=== PATIENT | female | born 1965 | race Caucasian/White ===

== ENCOUNTER 2020-05-14 09:42 | Outpatient (REF) | payer OTHER, SELFPAY ==
--- NOTE | 2020-05-14 | MM_ITS ---
EXAMINATION: MM DIAGNOSTIC DIGITAL BREAST TOMOSYNTHESIS, BILATERAL CLINICAL INFORMATION: Calcifications The lifetime risk of breast cancer based on the Tyrer-Cuzick Model is 9.5%. COMPARISON: Mammography: July 29, 2018 and studies dating back to December 20, 2011 TECHNIQUE: Digital breast tomosynthesis is performed in both the craniocaudal and mediolateral oblique views along with computer-aided detection (CAD). Synthesized 2D images are generated from the tomosynthesis. Addition right breast magnification views performed in craniocaudal and 90 degree mediolateral views as well as spot compression right craniocaudal view. FINDINGS: There are scattered areas of fibroglandular density (ACR BI-RADS breast composition Category b). No new abnormal dominant masses or new more suspicious grouping of microcalcifications identified. Results are provided to the patient at time of visit by the technologist. MM/MM tomosynthesis diagnostic BI IMPRESSION: There are no significant changes from prior study. ASSESSMENT: BI-RADS 2: Benign RECOMMENDATION: Routine annual mammography screening due in 12 months. This patient's information was entered into a reminder system with a target due date for their next mammogram.
== END 2020-05-14 09:43 | disposition home or self-care (01) ==
LOC: HO.MAMMO 09:42
PROVIDERS: Visit Provider Internal Medicine
DX: R92.1 Mammographic calcification found on diagnostic imaging of breast (principal)
CPT/HCPCS: 77062; 77066

== ENCOUNTER 2021-09-11 17:06 | Emergency (ER) | payer OTHER, SELFPAY ==
--- NOTE | 2021-09-11 | ECG_ITS ---
Test Reason : CHEST PAIN Blood Pressure : / mmHG Vent. Rate : 069 BPM Atrial Rate : 069 BPM P-R Int : 150 ms QRS Dur : 086 ms QT Int : 406 ms P-R-T Axes : 002 -21 -05 degrees QTc Int : 435 ms Normal sinus rhythm Moderate voltage criteria for LVH, may be normal variant ( R in aVL , [place] product ) Septal infarct , age undetermined Abnormal ECG When compared with ECG of 13-JAN-2011 17:10, No significant change was found Referred By: Generic ED Physician Electronically Signed By:ARUN HIGUERA
--- NOTE | ~2021-09-11 | XR_ITS ---
EXAMINATION: XR CHEST CLINICAL INFORMATION: Chest pain/palpitations COMPARISON: None TECHNIQUE: Frontal view of the chest was obtained. FINDINGS: No significant abnormality is noted involving the heart, lungs, mediastinum, bony thorax or soft tissues. XR/XR chest 1V IMPRESSION: Unremarkable examination.
[2021-09-11 17:10] VITALS: TEMP 36.6; BMI 33.3
[2021-09-11 17:14] VITALS: BP 268/125; PULSE 73; RESP 18; O2SAT 98
[2021-09-11 17:37] LABS: MANUAL DIFF FLAG NO
[2021-09-11 17:38] LABS: Basophils Absolute Auto 0.1 X10*3/uL (0.0-0.2); Basophils Percent Auto 0.6 % (0-2); Eosinophils Absolute Auto 0.2 X10*3/uL (0.0-0.4); Eosinophils Percent Auto 1.9 % (0-4); Hematocrit 45.2 % (37.0-47.0); Hemoglobin 15.6 g/dl (12.0-16.0); Imm Gran Abs Auto 0.01 X10*3/uL (0.00-0.03); Imm Gran Pct Auto 0.1 % (0.0-0.4); Lymphocytes Absolute Auto 2.1 X10*3/uL (1.2-4.9); Lymphocytes Percent Auto 27.4 % (20-40); Mean Corpuscular HGB Conc 34.5 g/dl (31.0-35.0); Mean Corpuscular Volume 86.9 fL (80.0-98.0); Mean Platelet Volume 9.8 fL (9.4-12.3); Monocytes Absolute Auto 0.6 X10*3/uL (0.1-1.2); Neutrophils Absolute Auto 4.9 x10*3/uL (2.0-8.3); Platelet Count 292 X10*3/uL (160-400); Red Cell Distribution Width 12.4 % (11.0-16.0); White Blood Count 7.8 X10*3/uL (4.8-10.8)
--- NOTE | 2021-09-11 17:47 | ECG_ITS ---
Test Reason : PALPITATIONS Blood Pressure : / mmHG Vent. Rate : 069 BPM Atrial Rate : 069 BPM P-R Int : 164 ms QRS Dur : 082 ms QT Int : 400 ms P-R-T Axes : 007 -25 -04 degrees QTc Int : 428 ms Normal sinus rhythm Moderate voltage criteria for LVH, may be normal variant ( R in aVL , [place] product ) Septal infarct (cited on or before 11-SEP-2021) Abnormal ECG When compared with ECG of 11-SEP-2021 17:17, No significant change was found Referred By: Arnold Ruiz Electronically Signed By:ARUN HIGUERA
[2021-09-11 17:51] LABS: Anion Gap 12 (12-20); Blood Urea Nitrogen 14 mg/dL (9-16); Carbon Dioxide 31 mmol/L (22-29); Chloride 103 mmol/L (96-108); Creatinine Clr Calc Pharmacy 86.3; Estimated Glomerular Filt Rate > 60; Glucose Random 197 mg/dL (60-115); Potassium 4.5 mmol/L (3.3-5.1); Sodium 141 mmol/L (135-145)
[2021-09-11 17:56] LABS: Troponin-I High Sensitivity 3.5 ng/L (<3.5-17.0)
--- NOTE | 2021-09-11 18:09 | ED.ARRPALP ---
HPI - Arrhythmia/Palpitations General Chief Complaint: Arrhythmia/Palpitations Stated Complaint: heart palpitations Time Seen by Provider: 09/11/21 17:46 Source: patient Mode of arrival: ambulatory Limitations: no limitations History of Present Illness HPI narrative: 56-year-old female who presents emergency department for evaluation palpitations. She states she woke up this morning and did not feel well. She states that she was tired and she attributed this to working to hard during the week. The patient went to work. 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 She states that around 16:30 hours, she developed a sudden onset of palpitations. She states that her heart was beating fast and it felt like a jackhammer was pounding on her chest. She had mild shortness of breath. She felt very warm. She sat down and after approximately 25 minutes her symptoms resolved. She denied any lightheadedness or dizziness. She denied pain in her neck, jaw, arms or back. She states this is the 1st episode of palpitations. She states that over the past week she has been feeling more tired than usual she has had some mild dyspnea on exertion but she states that this is not new. She denied chest pain, fever, chills, rhinorrhea, sore throat, cough, nausea, vomiting, abdominal pain, frequency, black stools, bloody stools, weight loss or weight gain. The patient states that occasionally gets swelling in her lower extremities but not any more than usual. She does not take any hormonal replacement therapy. She has not gone on any long trips. She has had no recent surgeries. Related Data Previous Rx's Medication Instructions Recorded hydrochlorothiazide 25 mg tablet 25 mg PO DAILY 30 Days #30 tab 09/11/21 lisinopril 20 mg tablet 20 mg PO DAILY 30 Days #30 tab 09/11/21 Allergies Allergy/AdvReac Type Severity Reaction Status Date / Time No Known Allergies Allergy Mild NONE Verified 09/11/21 17:10 Review of Systems Review of Systems: Yes all other systems are reviewed and are negative [facility] Past Medical History [facility] Narrative: Past medical history: Borderline hypertension, not treated. Past surgical history: Hysterectomy secondary to dysfunctional uterine bleeding, bilateral torn meniscus repair with the last 1 being 10 years prior. Social history: She works in a restaurant. She states she smoked as a teenager for brief period time but otherwise does not smoke cigarettes. She occasionally drinks alcohol. She denies drug use. Social History Social History Advance Directives: No Advance Directives Information Provided: No Patient : No Physical Exam Vital Signs: Vital Signs: Last Vital Signs Temp 97.7 F 09/11/21 19:02 Pulse 66 09/11/21 19:02 Resp 18 09/11/21 19:02 BP 229/116 H 09/11/21 19:02 Pulse Ox 96 09/11/21 19:02 BMI result Body Mass Index 33.3 Const: General: cooperative and no acute distress Orientation/consciousness: oriented to person and oriented to place Limitations: no limitations HENMT: Head: Yes normal to inspection, Yes normocephalic and Yes atraumatic Ears: external ears normal General nose exam: Normal external nose present Face and sinus: Yes normal facial exam Mouth: Normal oral and palatal mucosa present Throat: Yes posterior oropharynx normal Eyes: General: appearance normal, both eyes and all related structures Pupils: Equal, round and reactive pupils present Neck: Neck: Yes normal visual inspection, Yes no lymphadenopathy, Yes trachea midline and Yes supple Chest: Chest palpation & inspection: normal inspection of the chest and tenderness (Mild right chest wall tenderness) Resp: Effort & Inspection: normal respiratory effort and able to speak in complete sentences Auscultation: clear to auscultation bilaterally Cardio: Rate: regular rate Rhythm: regular rhythm Heart sounds: S1 normal heart sound present, S2 normal heart sound present and no murmurs GI: Inspection: Yes normal to inspection Palpation (GI): Soft to palpation, nontender and no guarding Auscultation: normal bowel sounds : General: Yes no CVA tenderness Back/Spine/Pelvis: Back: no CVA tenderness Skin: General skin exam: no rashes or lesions noted Neuro: General: oriented to person and oriented to place Cranial nerves: Yes CN's II-XII intact bilaterally and Yes Equal, round and reactive pupils present Cognition (Neuro): normal cognition Motor exam (neuro): 5/5 motor strength present throughout Extrem: General: Yes normal to inspection, Yes no pedal edema and Yes no calf tenderness (Negative Homans sign bilaterally) Psych: Appearance: grossly normal Speech and movement: Normal speech and movement present Affect: normal affect Attitude: cooperative Thought process: Normal thought process present Thought content: Normal thought content present Course Course Course Narrative: 56-year-old female who presents emergency department for evaluation of palpitations which came on suddenly while she was at work at around 16:30 hours lasted 25 minutes. She describes the palpitations as a fast heart rate and a jackhammer popping in her chest. She had no other significant associated symptoms. She did no increased fatigue this morning in over the last week with some mild dyspnea on exertion with no other significant symptoms. Initial vital signs revealed an elevated blood pressure of 268/125 otherwise were unremarkable. Physical examination did reveal some [id number] right-sided chest wall tenderness otherwise was unremarkable. I ordered a laboratory evaluation to include CBC, BMP, liver panel, troponin, PT/INR, PTT, D-dimer, TSH with reflex T4. COVID-19 test was also ordered. Patient states she did have a history of hypertension and was on lisinopril and hydrochlorothiazide eventually stop the since her blood pressure improved. 18 15: Patient's 1st EKG was done and 17:17 with a repeat EKG done at 17:50. First EKG revealed a sinus rhythm with a rate of 69, normal intervals, Q-wave in lead 3 with inverted T-wave and this lead, she had Q-waves V1 through V3 with no ST segment elevation or depression this is consistent with an anterior septal wall NE, repeat EKG reveals similar findings. There are no old EKGs for comparison. 2139: Patient's laboratory evaluation did reveal an elevated glucose of 197. The patient's 1st high sensitivity troponin I was 3.5 and her repeat troponin was similar 3.5 suggesting that she did not have myocardial injury is the cause her palpitations. TSH was normal and COVID-19 was negative. Chest x-ray was unremarkable. The patient's presentation of palpitations I believe his benign however she does have essential hypertension and she was given lisinopril 20 mg orally. I did prescribe her lisinopril 20 mg once a day and hydrochlorothiazide 25 mg once a day, these with the medications that she was taking in the past. The patient does have an abnormal EKG and she will be referred to our on-call shader and toner. I told her that she should have an echocardiogram as an outpatient, Holter monitor and possibly event monitor. Patient was discharged home with printed and verbal instructions. MDM - Arrhythmia/Palpitations Lab Data Result diagrams: 09/11/21 17:32 09/11/21 17:32 Labs: Lab Results 09/11/21 09/11/21 09/11/21 Range/Units 17:32 17:32 17:32 WBC 7.8 (4.8-10.8) X10*3/uL RBC 5.20 (4.20-5.50) X10*6/uL Hgb 15.6 (12.0-16.0) g/dl Hct 45.2 (37.0-47.0) % MCV 86.9 (80.0-98.0) fL MCH 30.0 (27.0-33.0) pg MCHC 34.5 (31.0-35.0) g/dl RDW 12.4 (11.0-16.0) % Plt Count 292 (160-400) X10*3/uL MPV 9.8 (9.4-12.3) fL Immature Gran % (Auto) 0.1 (0.0-0.4) % Neut % (Auto) 63.0 (45-73) % Lymph % (Auto) 27.4 (20-40) % [place] % (Auto) 7.0 (2-11) % Eos % (Auto) 1.9 (0-4) % Baso % (Auto) 0.6 (0-2) % Lymph # (Auto) 2.1 (1.2-4.9) X10*3/uL [place] # (Auto) 0.6 (0.1-1.2) X10*3/uL Eos # (Auto) 0.2 (0.0-0.4) X10*3/uL Baso # (Auto) 0.1 (0.0-0.2) X10*3/uL Abs Immat Gran (auto) 0.01 (0.00-0.03) X10*3/uL Absolute Neuts (auto) 4.9 (2.0-8.3) x10*3/uL Absolute Nucleated RBC 0.000 (0.0-0.012) X10*3/uL Nucleated RBC % (auto) 0.0 (0.0-0.2) /100WBC PT INR APTT D-Dimer High Sensitivty NG/ML Sodium 141 (135-145) mmol/L Potassium 4.5 (3.3-5.1) mmol/L Chloride 103 (96-108) mmol/L Carbon Dioxide 31 H (22-29) mmol/L Anion Gap 12 (12-20) BUN 14 (9-16) mg/dL Creatinine 0.81 (0.5-1.4) mg/dL Estim Creat Clear Calc 86.3 Estimated GFR > 60 Random Glucose 197 H (60-115) mg/dL Calcium 10.0 (8.4-10.2) mg/dL Total Bilirubin 0.5 (0.0-1.0) mg/dL Direct Bilirubin 0.2 (0.0-0.5) mg/dL AST 20 (5-31) U/L ALT 22 (0-31) U/L Alkaline Phosphatase 92 (39-117) U/L Troponin I High Sens 3.5 (<3.5-17.0) ng/L Total Protein 7.6 (6.5-8.0) g/dL Albumin 4.5 (3.5-5.0) g/dL TSH 0.81 (0.32-4.0) uIU/mL COVID-19 ([facility]) (Negative) COVID-19 Clin Com 09/11/21 09/11/21 09/11/21 Range/Units 18:16 18:16 18:16 WBC (4.8-10.8) X10*3/uL RBC (4.20-5.50) X10*6/uL Hgb (12.0-16.0) g/dl Hct (37.0-47.0) % MCV (80.0-98.0) fL MCH (27.0-33.0) pg MCHC (31.0-35.0) g/dl RDW (11.0-16.0) % Plt Count (160-400) X10*3/uL MPV (9.4-12.3) fL Immature Gran % (Auto) (0.0-0.4) % Neut % (Auto) (45-73) % Lymph % (Auto) (20-40) % [place] % (Auto) (2-11) % Eos % (Auto) (0-4) % Baso % (Auto) (0-2) % Lymph # (Auto) (1.2-4.9) X10*3/uL [place] # (Auto) (0.1-1.2) X10*3/uL Eos # (Auto) (0.0-0.4) X10*3/uL Baso # (Auto) (0.0-0.2) X10*3/uL Abs Immat Gran (auto) (0.00-0.03) X10*3/uL Absolute Neuts (auto) (2.0-8.3) x10*3/uL Absolute Nucleated RBC (0.0-0.012) X10*3/uL Nucleated RBC % (auto) (0.0-0.2) /100WBC PT Cancelled 11.9 INR Cancelled 1.0 APTT Cancelled 38.1 H D-Dimer High Sensitivty < 150 NG/ML Sodium (135-145) mmol/L Potassium (3.3-5.1) mmol/L Chloride (96-108) mmol/L Carbon Dioxide (22-29) mmol/L Anion Gap (12-20) BUN (9-16) mg/dL Creatinine (0.5-1.4) mg/dL Estim Creat Clear Calc Estimated GFR Random Glucose (60-115) mg/dL Calcium (8.4-10.2) mg/dL Total Bilirubin (0.0-1.0) mg/dL Direct Bilirubin (0.0-0.5) mg/dL AST (5-31) U/L ALT (0-31) U/L Alkaline Phosphatase (39-117) U/L Troponin I High Sens (<3.5-17.0) ng/L Total Protein (6.5-8.0) g/dL Albumin (3.5-5.0) g/dL TSH (0.32-4.0) uIU/mL COVID-19 ([facility]) Negative (Negative) COVID-19 Clin Com See Note 09/11/21 Range/Units 20:48 WBC (4.8-10.8) X10*3/uL RBC (4.20-5.50) X10*6/uL Hgb (12.0-16.0) g/dl Hct (37.0-47.0) % MCV (80.0-98.0) fL MCH (27.0-33.0) pg MCHC (31.0-35.0) g/dl RDW (11.0-16.0) % Plt Count (160-400) X10*3/uL MPV (9.4-12.3) fL Immature Gran % (Auto) (0.0-0.4) % Neut % (Auto) (45-73) % Lymph % (Auto) (20-40) % [place] % (Auto) (2-11) % Eos % (Auto) (0-4) % Baso % (Auto) (0-2) % Lymph # (Auto) (1.2-4.9) X10*3/uL [place] # (Auto) (0.1-1.2) X10*3/uL Eos # (Auto) (0.0-0.4) X10*3/uL Baso # (Auto) (0.0-0.2) X10*3/uL Abs Immat Gran (auto) (0.00-0.03) X10*3/uL Absolute Neuts (auto) (2.0-8.3) x10*3/uL Absolute Nucleated RBC (0.0-0.012) X10*3/uL Nucleated RBC % (auto) (0.0-0.2) /100WBC PT INR APTT D-Dimer High Sensitivty NG/ML Sodium (135-145) mmol/L Potassium (3.3-5.1) mmol/L Chloride (96-108) mmol/L Carbon Dioxide (22-29) mmol/L Anion Gap (12-20) BUN (9-16) mg/dL Creatinine (0.5-1.4) mg/dL Estim Creat Clear Calc Estimated GFR Random Glucose (60-115) mg/dL Calcium (8.4-10.2) mg/dL Total Bilirubin (0.0-1.0) mg/dL Direct Bilirubin (0.0-0.5) mg/dL AST (5-31) U/L ALT (0-31) U/L Alkaline Phosphatase (39-117) U/L Troponin I High Sens 3.5 (<3.5-17.0) ng/L Total Protein (6.5-8.0) g/dL Albumin (3.5-5.0) g/dL TSH (0.32-4.0) uIU/mL COVID-19 ([facility]) (Negative) COVID-19 Clin Com ECG Data Attestation: I personally reviewed and interpreted this ECG as follows: Interpretation: EKG 1) 1717: Normal sinus rhythm rate of 69, normal IA interval, QRS duration and QTC interval, Q-wave in lead 3 with inverted T-wave in lead 3 and biphasic P wave in lead 3, Q-waves in V1, V2 and V3, no ST segment elevation, no ST segment depression, no PACs or PVCs. No old EKG for comparison, this is consistent with an old anterior septal wall NE EKG 2) 17 50: Normal sinus rhythm with a rate of 69, normal IA interval, QRS duration QTC interval, biphasic P wave in 3 with an inverted T-wave in 3, Q-wave in 3 and Q-waves in V1, V2 and V3, no ST segment elevation, no ST segment depression, no PACs or PVCs. Compared to EKG 1, there is no significant change Discharge Plan Discharge Clinical Impression: Palpitations, Essential hypertension Patient Disposition: Home, Self-Care Instructions: Heart Palpitations (DC) Additional Instructions: Your chest x-ray was unremarkable. Your laboratory evaluation revealed a detectable high sensitivity troponin I of 3.5, the repeat 3 hour troponin was also 3.5 suggesting that you did not have heart damage (myocardial infarction/heart attack) as the cause of your palpitations. Your chest x-ray was normal. Your COVID-19 test was negative. Your EKG is abnormal however I do not think that you had a heart attack today. Given your abnormal EKG, I do believe you should follow-up with the that your primary care doctor or on-call shader and toner to get an echocardiogram as an outpatient. Also to workup her palpitations your primary care doctor or the shader and toner should get a Holter monitor and possibly an event monitor as an outpatient as well. Your blood pressure was very high but this is not the cause of your palpitations or your abnormal EKG. Take lisinopril 20 mg once a day Take take hydrochlorothiazide 25 mg once a day. It will take at least 6 weeks to get your blood pressure under control with these medications and sometimes longer. It is important that you check your blood pressure at least 3 times a week in the morning, right these blood pressures down and follow-up with your doctor to determine further management of your blood pressure. Follow-up with your doctor in 2 days. Please return to the emergency department if your symptoms get worse or if you develop any symptoms that are concerning to you. Prescriptions: New lisinopril 20 mg tablet 20 mg PO DAILY 30 Days Qty: 30 0RF hydrochlorothiazide 25 mg tablet 25 mg PO DAILY 30 Days Qty: 30 0RF Referrals: Leander Sierra MD [Physician] - 2 weeks
[2021-09-11 18:17] LABS: Alanine Aminotransferase 22 U/L (0-31); Albumin Level 4.5 g/dL (3.5-5.0); Alkaline Phosphatase 92 U/L (39-117); Aspartate Amino Transferase 20 U/L (5-31); Bilirubin Direct 0.2 mg/dL (0.0-0.5); Bilirubin Total 0.5 mg/dL (0.0-1.0); Total Protein 7.6 g/dL (6.5-8.0)
[2021-09-11 18:31] LABS: Prothrombin Time 11.9 SEC (9.9-13.0)
[2021-09-11 18:33] LABS: Partial Thromboplastin Time 38.1 SEC (24.1-38.0)
[2021-09-11 18:37] LABS: TSH reflex Free T4 0.81 uIU/mL (0.32-4.0)
[2021-09-11 18:49] LABS: COVID-19 Test Negative (Negative)
[2021-09-11 19:02] VITALS: BP 229/116; PULSE 66; RESP 18; TEMP 36.5; O2SAT 96
[2021-09-11 19:03] LABS: D Dimer High Sensitivity < 150 NG/ML
--- NOTE | 2021-09-11 19:19 | PC.NURSE ---
Assumed care of pt at 1900. Pt resting in bed, in NAD, attached to child monitor. Dispo pending lab results
[2021-09-11 21:11] LABS: Troponin-I High Sensitivity 3.5 ng/L (<3.5-17.0)
[2021-09-11] MEDS: lisinopriL 20 MG TABLET PO (21:14)
[2021-09-11 21:52] VITALS: BP 231/103
== END 2021-09-11 22:04 | disposition home or self-care (01) ==
PROVIDERS: Emergency Provider Emergency Medicine Emergency Medical Services
DX: R00.2 Palpitations (principal); I10 Essential (primary) hypertension; Z20.822 Contact with and (suspected) exposure to COVID-19
CPT/HCPCS: 36415; 71045; 80048; 80076; 84443; 84484; 85025; 85379; 85610; 85730; 87635; 93005; 99284

== ENCOUNTER → 2021-09-20 08:10 | Outpatient (REF) | payer OTHER, SELFPAY ==
--- NOTE | 2021-09-20 08:16 | CA_ITS ---
Transthoracic Echocardiogram Patient (Last, First, Middle): Gris Gonsalez J Gender: Female Date of : 1965 Age: 56 Procedure Date: 09/20/2021 Procedure Type: Transthoracic Echocardiogram Location: OP Height: 162.56 cm Weight: 92.08 kg BSA: 1.97 m2 Heart Rate: bpm BP: 150 / 82 mmHg Book Retailer: DSNew Referring MD: Richard Ferris MD Symptoms: I10 HTN I50.1 LVH Conclusions: - Normal left ventricular size and systolic function. There is moderately increased left ventricular wall thickness. The visually estimated ejection fraction is between 60-65%. - E/E prime ratio is between 8 and 15 consistent with indeterminate filling pressures. - There is mild dilatation of the ascending aorta measuring 3.90 cm. Findings Left Ventricle Normal left ventricular size and systolic function. There is moderately increased left ventricular wall thickness. The visually estimated ejection fraction is between 60-65%. Abnormal diastolic function is noted. Spectral Doppler is indicative of an impaired relaxation filling pattern. E/E prime ratio is between 8 and 15 consistent with indeterminate filling pressures. Right Ventricle Normal right ventricular cavity size and systolic function. Atria Both atria are normal in size. Aortic Valve Normal aortic valve structure and function. There is no aortic valve stenosis. There is no aortic valve regurgitation. Mitral Valve The mitral valve appears normal. There is no mitral valve regurgitation. There is no mitral valve stenosis. Pulmonic Valve The pulmonic valve is likely normal. Tricuspid Valve Normal tricuspid valve structure. There is mild tricuspid valve regurgitation. Normal right atrial pressure. There is no evidence of pulmonary hypertension. Great Vessels There is mild dilatation of the ascending aorta measuring 3.90 cm. The visualized portions of the pulmonary artery and branches are normal. Venous The inferior vena cava is normal in size and collapses greater than 50% with inspiration. Pericardium/Pleural There is no evidence of pericardial effusion. Measurements M-Mode Liner Measurements Normals - Women/Men IVSd: 1.41 0.6-0.9/0.6-1.0 cm LVIDd: 5.05 3.9-5.3/4.2-5.9 cm LVIDd Index: 2.56 1.9-3.2 cm/m2 LVIDs: 2.82 2.0-3.8 cm LVPWd: 1.26 0.6-0.9/0.6-1.0 cm LV Mass: 344.56 67-162/88-224g LV Mass Index: 174.91 43-95/49-115 g/m2 M-Mode Volumes LV EDV: 121.00 LV ESV: 30.10 2D Linear Measurements IVSd: 1.34 0.6-0.9/0.6-1.0 cm LVIDd: 4.47 3.9-5.3/4.2-5.9 cm LVIDd Index: 2.27 2.4-3.2/2.2-3.1 cm/m2 LVIDs: 3.23 2.0-3.6 cm LVPWd: 1.48 0.7-1.1 cm LA Diam: 2.50 2.7-3.8/3.0-4.0 cm LAIDs Index: 1.27 1.5-2.3 cm/m2 LV Mass: 310.03 67-162/88-224 g LV Mass Index: 157.38 43-95/49-115 g/m2 LVOT Diam: 2.20 3.0+(-)1.3 cm 2D Systolic Function EF 4C: 62.40 >55% EF 2C: 57.20 >55% EF BiP: 60.30 >55% M-Mode Systolic Function FS: 44.20 27-47/25-43% LVEF: 75.10 >55% Mitral Valve MV Pk E: 0.54 MV PK A: 0.84 MV Decel Time: 220.00 E/A: 0.70 E'Lateral: 6.09 E'Medial: 4.03 E/E' Med: 13.50 E/E' Lat: 8.90 PHT: 64.00 MVA PHT: 3.44 Decel [place]: 2.47 Aortic Valve AoV Pk [place]: 1.43 AoV Pk Grad: 8.00 LVOT LVOT Pk [place]: 0.88 LVOT Mn [place]: 0.58 LVOT VTI: 0.22 LVOT Pk Grad: 3.00 LVOT Mn Grad: 2.00 LVOT Diam: 2.20 LVOT Area: 3.80 Diastolic Function MV Pk E: 0.54 MV Pk A: 0.84 E/A: 0.70 E'Medial: 4.03 E/E' Med: 13.50 E' Laterial: 6.09 E/E' Lat: 8.90 Right Ventricle TAPSE (mm): 2.26 TVS' [place]: 13.60 Tricuspid Valve TR Pk [place]: 2.40 TR Pk Grad: 23.00 RA Press: 3.00 RVSP: 26.00 Great Vessels Aorta Sinus of Valsalva: 3.45 2.0-3.5 cm Ao Asc: 3.90 2.1-3.4 cm Updated in Other Vendor System with Status of Final Kings Gonzalez MD electronically signed on 09/21/2021 3:47:09 PM with status of Final
== END ==
LOC: HO.CARD 08:10
PROVIDERS: Visit Provider Internal Medicine
DX: I11.0 Hypertensive heart disease with heart failure (principal); I50.1 Left ventricular failure, unspecified
CPT/HCPCS: 93306

== ENCOUNTER 2021-09-23 07:56 | Outpatient (REF) | payer OTHER, SELFPAY ==
[2021-09-23 08:39] LABS: Estimated Average Glucose 157 mg/dL; Hemoglobin A1c % 7.1 %
[2021-09-23 08:59] LABS: Anion Gap 16 (12-20); Blood Urea Nitrogen 23 mg/dL (9-16); Calcium 9.9 mg/dL (8.4-10.2); Carbon Dioxide 27 mmol/L (22-29); Chloride 103 mmol/L (96-108); Cholesterol 207 mg/dL; Estimated Glomerular Filt Rate > 60; Glucose Random 110 mg/dL (60-115); HDL Cholesterol 53 mg/dL; LDL Cholesterol Calculated 139 mg/dl; Potassium 4.6 mmol/L (3.3-5.1); Sodium 141 mmol/L (135-145); Triglycerides 78 mg/dL
[2021-09-23 09:23] LABS: Free T4 (Free Thyroxine) 1.08 ng/dL (0.71-1.85)
[2021-09-23 09:23] LABS: Appearance Urine HAZY; Color Urine YELLOW; Glucose Urine UA NEG (NEG); Leukocyte Esterase Urine NEG (NEG); Nitrite Urine NEG (NEG); PH 5.5 (5.0-8.0); Specific Gravity - Urine 1.025 (1.005-1.025); Urine Blood NEG (NEG); Urine Ketones 15 MG/DL (NEG); Urine Protein NEG (NEG-TRACE)
[2021-09-23 09:31] LABS: Creatinine Urine 166.72 mg/dL; Microalbum/Creatinine Ratio Ur 13.1 ug/mg cr
== END 2021-09-23 07:57 | disposition home or self-care (01) ==
LOC: HO.LAB 07:56
PROVIDERS: PCP Internal Medicine; Visit Provider Internal Medicine
DX: I10 Essential (primary) hypertension (principal); E11.9 Type 2 diabetes mellitus without complications; R00.2 Palpitations
CPT/HCPCS: 36415; 80048; 80061; 81003; 82043; 83036; 84439

== ENCOUNTER 2021-10-01 11:33 | Outpatient (REF) | payer OTHER, SELFPAY ==
--- NOTE | ~2021-10-01 | XR_ITS ---
EXAMINATION: XR CERVICAL SPINE CLINICAL INFORMATION: Left paresthesia. COMPARISON: None TECHNIQUE: The cervical spine is imaged in 7 views: AP, lateral, bilateral oblique, odontoid x2, and Fuchs. FINDINGS: There is straightening of the cervical lordosis. The vertebral bodies are normal in height. The odontoid appears intact. There is no cervical vertebral compression, spondylolisthesis, destructive process, or prevertebral soft tissue swelling. No erosive changes. There are degenerative disc changes with disc narrowing C5-C6 and C6-C7. There is mild facet degeneration C3-C4 and C4-C5. The oblique view show left foraminal spurring at C6-C7 and borderline bilateral foraminal spurring at C4-C5 and C5-C6. XR/XR cervical spine min 6V IMPRESSION: 1. Degenerative disc changes C5-C6 and C6-C7. 2. Left foraminal spurring C6-C7. 3. Borderline bilateral foraminal spurring C4-C5 and C5-C6.
[2021-10-01 13:22] LABS: Anion Gap 16 (12-20); Blood Urea Nitrogen 16 mg/dL (9-16); C Reactive Protein 0.45 mg/dL (< or = 0.50); Calcium 11.1 mg/dL (8.4-10.2); Carbon Dioxide 29 mmol/L (22-29); Chloride 101 mmol/L (96-108); Estimated Glomerular Filt Rate > 60; Glucose Random 131 mg/dL (60-115); Sodium 141 mmol/L (135-145)
[2021-10-01 13:29] LABS: Vitamin B12 415 pg/mL (200-900)
== END 2021-10-01 11:34 | disposition home or self-care (01) ==
LOC: HO.XRAY 11:33
PROVIDERS: PCP Internal Medicine; Visit Provider Internal Medicine
DX: I10 Essential (primary) hypertension (principal); E11.9 Type 2 diabetes mellitus without complications; M54.2 Cervicalgia
CPT/HCPCS: 36415; 72052; 80048; 82550; 82607; 83735; 86140

== ENCOUNTER 2021-11-12 07:23 | Outpatient (REF) | payer OTHER, SELFPAY ==
--- NOTE | ~2021-11-12 | MM_ITS ---
EXAMINATION: BONE DENSITOMETRY CLINICAL INDICATION: Postmenopausal. COMPARISON: None (current study represents initial baseline exam). TECHNIQUE: Using a RealD DXA System (software version: 13.1) manufactured by [employer], dual-energy x-ray absorptiometry was performed of the lumbar spine and left hip. The images are of good technical quality. Summary results are attached. FINDINGS: AP SPINE L1-L4: BMD 1.344 g/cm2, Z-score 1.4, T-score 1.4, normal. LEFT FEMUR, NECK: BMD 1.044 g/cm2, Z-score 0.5, T-score 0.0, normal. LEFT FEMUR, TOTAL: BMD 1.257 g/cm2, Z-score 2.1, T-score 2.0, normal. IDENTIFIED RISK FACTORS: Low calcium intake, thiazide. Early menopause, secondary osteoporosis, hysterectomy. HISTORY OF FRACTURE: None listed. MEDICATIONS: None listed. MM/XR DEXA axial skeleton IMPRESSION: 1. DIAGNOSIS: Normal bone density based on the lowest T-score value of 0.0 in the femoral neck applying World Health Organization criteria. 2. 10-YEAR FRACTURE RISK PREDICTION, FRAX: According to the guidelines, FRAX calculation should only be performed on patients in the osteopenia bone density category. Therefore, FRAX was not performed on this patient. 3. Treatment Recommendations: NOF guidelines recommend consideration for treatment in postmenopausal women and men age 50 and older presenting with the following: -A hip or vertebral (clinical or morphometric) fracture. -T-score less than or equal to -2.5 at the femoral neck or spine after appropriate evaluation to exclude secondary causes. -Low bone mass at the hip or spine and a 10-year fracture probability by FRAX of greater than or equal to 3% for hip fracture or greater than or equal to 20% for major osteoporotic fracture based on the [place] adapted WHO algorithm. 4. Other Recommendations: All treatment decisions require clinical judgment and consideration of individual patient factors, including patient preferences, comorbidities, previous drug use, risk factors not captured in the FRAX model (e.g. frailty, falls, vitamin D deficiency, increased bone turnover, interval significant decline in bone density) and possible under or overestimation of fracture risk by FRAX. FUTURE SCAN RECOMMENDATION: People with diagnosed cases of osteoporosis or at high risk for fracture should have regular bone mineral density tests. For patients eligible for Medicare, routine testing is allowed once every 2 years. The testing frequency can be increased to one year for patients who have rapidly progressing disease, those who are receiving or discontinuing medical therapy to restore bone mass, or have additional risk factors.
--- NOTE | ~2021-11-12 | MM_ITS ---
EXAMINATION: MM SCREENING DIGITAL BREAST TOMOSYNTHESIS, BILATERAL CLINICAL INFORMATION: Screening. Asymptomatic. The lifetime risk of breast cancer based on the Tyrer-Cuzick Model is 7%. COMPARISON: Mammography: 05/14/2020, 07/29/2018, 01/19/2018, 06/29/2017 TECHNIQUE: Digital breast tomosynthesis is performed in both the craniocaudal and mediolateral oblique views along with computer-aided detection (CAD). Synthesized 2D images are generated from the tomosynthesis. FINDINGS: There are scattered areas of fibroglandular density (ACR BI-RADS breast composition Category b). There are no significant masses, abnormal calcifications, or other abnormalities. There are diffuse scattered benign round calcifications in both breasts. Biopsy clip marker again noted posterior central 9:00 left breast. MM/MM tomosynthesis screening BI IMPRESSION: No mammographic evidence of malignancy. ASSESSMENT: BI-RADS 2: Benign RECOMMENDATION: Routine annual mammography screening. This patient's information was entered into a reminder system with a target due date for their next mammogram.
== END 2021-11-12 07:24 | disposition home or self-care (01) ==
LOC: HO.MAMMO 07:23
PROVIDERS: PCP Internal Medicine; Visit Provider Internal Medicine
DX: Z12.31 Encounter for screening mammogram for malignant neoplasm of breast (principal); Z13.820 Encounter for screening for osteoporosis; Z78.0 Asymptomatic menopausal state
CPT/HCPCS: 77063; 77067; 77080

== ENCOUNTER 2021-12-31 11:26 | Outpatient (REF) | payer OTHER, SELFPAY ==
[2021-12-31 11:45] LABS: MANUAL DIFF FLAG NO
[2021-12-31 12:07] LABS: Basophils Percent Auto 0.4 % (0-2); Eosinophils Absolute Auto 0.1 X10*3/uL (0.0-0.4); Eosinophils Percent Auto 1.9 % (0-4); Hematocrit 42.4 % (37.0-47.0); Hemoglobin 14.9 g/dl (12.0-16.0); Imm Gran Abs Auto 0.03 X10*3/uL (0.00-0.03); Imm Gran Pct Auto 0.4 % (0.0-0.4); Lymphocytes Absolute Auto 1.8 X10*3/uL (1.2-4.9); Lymphocytes Percent Auto 26.8 % (20-40); Mean Corpuscular HGB Conc 35.1 g/dl (31.0-35.0); Mean Corpuscular Hemoglobin 31.1 pg (27.0-33.0); Mean Corpuscular Volume 88.5 fL (80.0-98.0); Mean Platelet Volume 9.9 fL (9.4-12.3); Monocytes Absolute Auto 0.4 X10*3/uL (0.1-1.2); Monocytes Percent Auto 5.3 % (2-11); Neutrophils Absolute Auto 4.4 x10*3/uL (2.0-8.3); Neutrophils Percent Auto 65.2 % (45-73); Platelet Count 291 X10*3/uL (160-400); Red Blood Count 4.79 X10*6/uL (4.20-5.50); Red Cell Distribution Width 12.4 % (11.0-16.0); White Blood Count 6.8 X10*3/uL (4.8-10.8)
[2021-12-31 12:39] LABS: Alanine Aminotransferase 19 U/L (0-31); Albumin Level 4.5 g/dL (3.5-5.0); Alkaline Phosphatase 70 U/L (39-117); Anion Gap 15 (12-20); Aspartate Amino Transferase 16 U/L (5-31); Bilirubin Total 0.3 mg/dL (0.0-1.0); Blood Urea Nitrogen 15 mg/dL (9-16); C Reactive Protein 0.15 mg/dL (< or = 0.50); Calcium 9.8 mg/dL (8.4-10.2); Carbon Dioxide 28 mmol/L (22-29); Chloride 102 mmol/L (96-108); Estimated Glomerular Filt Rate > 60; Glucose Random 130 mg/dL (60-115); Potassium 4.6 mmol/L (3.3-5.1); Sodium 140 mmol/L (135-145); Total Protein 7.5 g/dL (6.5-8.0)
[2021-12-31 13:08] LABS: Estimated Average Glucose 151 mg/dL; Hemoglobin A1c % 6.9 %
[2022-01-01 15:47] LABS: Calcium (PTHI) 9.9 mg/dL (8.6-10.4); PTHI 31 pg/mL (16-77)
== END 2021-12-31 11:27 | disposition home or self-care (01) ==
LOC: HO.LAB 11:26
PROVIDERS: PCP Internal Medicine; Visit Provider Internal Medicine
DX: R73.02 Impaired glucose tolerance (oral) (principal); I10 Essential (primary) hypertension; E83.52 Hypercalcemia
CPT/HCPCS: 36415; 80053; 83036; 83970; 85025; 86140

== ENCOUNTER 2022-01-08 08:15 | Outpatient (REF) | payer OTHER, SELFPAY ==
--- NOTE | ~2022-01-08 | MR_ITS ---
EXAMINATION: MR BRAIN WITHOUT AND WITH CONTRAST CLINICAL INFORMATION: 56-year-old with left-sided facial and body numbness. Evaluate for brain lesion. COMPARISON: None TECHNIQUE: Multiplanar, multisequence MRI of the brain was obtained before and after the intravenous administration of 9 mL Gadavist. FINDINGS: BRAIN VOLUME: Within normal limits. STRUCTURAL: Partially empty sella. BRAIN AND MENINGES: DWI sequence demonstrates no restricted diffusion to suggest acute or subacute cerebral ischemia. Scattered small foci of the FLAIR/T2 signal hyperintensity are noted within the subcortical and deeper white matter of both cerebral hemispheres without abnormal enhancement, which are nonspecific findings. Gradient refocused imaging demonstrates no evidence for hemorrhage, hemosiderin staining or abnormal mineral deposition. Tavera-white matter interface is preserved. No intracranial mass lesions, abnormal brain parenchymal or abnormal leptomeningeal enhancement. No space-occupying process or mass effect. VENTRICLES AND SUBARACHNOID SPACES: The ventricular system and subarachnoid spaces are within normal limits without hydrocephalus. ORBITAL STRUCTURES: The visualized orbital structures are grossly unremarkable within the limitations of the study. VASCULAR: Signal voids are noted in the visualized major intracranial vessels. OSSEOUS STRUCTURES, SINUSES/MASTOIDS, EXTRACRANIAL SOFT TISSUES: Some retained secretions are seen in the right mastoid tip. Small retention cyst right maxillary sinus. Osseous marrow signal intensity is unremarkable. MR/MR head/brain wo/w con IMPRESSION: 1. Scattered nonspecific nonenhancing white matter T2 hyperintensities in both cerebral hemispheres. Differential diagnostic considerations include chronic ischemic microangiopathy and nonspecific foci of postinflammatory gliosis or other forms of vasculopathy. MS is considered less likely given the appearance. 2. No mass lesions, abnormal enhancement, space-occupying process, mass effect, hemorrhage or hydrocephalus.
== END 2022-01-08 08:16 | disposition home or self-care (01) ==
LOC: HO.MRI 08:15
PROVIDERS: Visit Provider Internal Medicine
DX: R20.2 Paresthesia of skin (principal); G51.9 Disorder of facial nerve, unspecified
CPT/HCPCS: 70553; A9585

== ENCOUNTER 2022-05-07 12:13 | Outpatient (REF) | payer OTHER, SELFPAY ==
[2022-05-07 14:20] LABS: Basophils Absolute Auto 0.1 X10*3/uL (0.0-0.2); Basophils Percent Auto 0.7 % (0-2); Eosinophils Absolute Auto 0.1 X10*3/uL (0.0-0.4); Eosinophils Percent Auto 1.9 % (0-4); Hematocrit 43.1 % (37.0-47.0); Hemoglobin 15.1 g/dl (12.0-16.0); Imm Gran Abs Auto 0.02 X10*3/uL (0.00-0.03); Imm Gran Pct Auto 0.3 % (0.0-0.4); Lymphocytes Percent Auto 27.6 % (20-40); MANUAL DIFF FLAG SCAN; Mean Corpuscular Hemoglobin 30.7 pg (27.0-33.0); Mean Corpuscular Volume 87.6 fL (80.0-98.0); Mean Platelet Volume 11.1 fL (9.4-12.3); Monocytes Absolute Auto 0.4 X10*3/uL (0.1-1.2); Monocytes Percent Auto 5.3 % (2-11); Neutrophils Absolute Auto 4.7 x10*3/uL (2.0-8.3); Neutrophils Percent Auto 64.2 % (45-73); PLT CLUMP 1; Red Blood Count 4.92 X10*6/uL (4.20-5.50); Red Cell Distribution Width 12.1 % (11.0-16.0); SCAN SMEAR FLAG 1
[2022-05-07 14:28] LABS: Estimated Average Glucose 160 mg/dL; Hemoglobin A1c % 7.2 %
[2022-05-07 14:41] LABS: Creatinine Urine 47.93 mg/dL; Microalbum/Creatinine Ratio Ur 18.7 ug/mg cr
[2022-05-07 14:48] LABS: Alanine Aminotransferase 22 U/L (0-31); Albumin Level 4.7 g/dL (3.5-5.0); Alkaline Phosphatase 77 U/L (39-117); Anion Gap 19 (12-20); Aspartate Amino Transferase 22 U/L (5-31); Bilirubin Total 0.5 mg/dL (0.0-1.0); Blood Urea Nitrogen 14 mg/dL (9-16); C Reactive Protein 0.34 mg/dL (< or = 0.50); Carbon Dioxide 28 mmol/L (22-29); Chloride 99 mmol/L (96-108); Estimated Glomerular Filt Rate > 60; Glucose Random 118 mg/dL (60-115); Potassium 4.5 mmol/L (3.3-5.1); Sodium 141 mmol/L (135-145); Total Protein 7.9 g/dL (6.5-8.0)
[2022-05-07 14:49] LABS: Platelet Count 259 X10*3/uL (160-400); White Blood Count 7.3 X10*3/uL (4.8-10.8)
[2022-05-07 14:50] LABS: SLIDE REVIEW VERIFIED
[2022-05-07 15:06] LABS: Free T4 (Free Thyroxine) 0.92 ng/dL (0.71-1.85); Thyroid Stimulating Hormone 0.85 uIU/mL (0.32-4.0); Vitamin D 25-OH Total 23.9 ng/mL (>30)
[2022-05-07 15:16] LABS: Folate 12.7 ng/mL (> or = 4.0); Vitamin B12 346 pg/mL (200-900)
== END 2022-05-07 12:14 | disposition home or self-care (01) ==
LOC: HO.10HDL 12:13
PROVIDERS: Visit Provider Internal Medicine
DX: I10 Essential (primary) hypertension (principal); E11.9 Type 2 diabetes mellitus without complications; G20 Parkinson's disease
CPT/HCPCS: 36415; 80053; 82043; 82306; 82607; 82746; 83036; 84439; 84443; 85025; 86140

== ENCOUNTER → 2022-05-29 08:45 | Outpatient (REF) | payer OTHER, SELFPAY | LOC: HO.SL 08:45 | PROVIDERS: PCP Internal Medicine; Visit Provider Internal Medicine | DX: G47.33 Obstructive sleep apnea (adult) (pediatric) (principal) | CPT/HCPCS: 95806 ==

== ENCOUNTER 2022-10-11 14:29 | Inpatient (IN) | payer OTHER, SELFPAY ==
--- NOTE | ~2022-10-11 | XR_ITS ---
EXAMINATION: XR CHEST CLINICAL INFORMATION: Weakness COMPARISON: Chest x-ray from 09/11/2021 TECHNIQUE: Frontal view of the chest was obtained. FINDINGS: No significant abnormality is noted involving the heart, lungs, mediastinum, bony thorax or soft tissues. XR/XR chest 1V IMPRESSION: Unremarkable examination.
--- NOTE | ~2022-10-11 | CT_ITS ---
EXAMINATION: CT HEAD WITHOUT CONTRAST (STROKE PROTOCOL) CLINICAL INFORMATION: Stroke protocol. Left-sided weakness. Paresthesias. COMPARISON: No recent relevant comparison. TECHNIQUE: Contiguous axial imaging was performed from the skull base to vertex without intravenous administration of contrast. This CT examination was performed using dose optimization techniques as appropriate, variously including the following: *Automated exposure control *Adjustment of mA and/or kV according to patient size (this includes techniques or standardized protocols for targeted exams where dose is matched to indication/reason for exam; i.e. extremities or head) *Use of iterative reconstruction technique DLP: 679 mGy-cm FINDINGS: The brain parenchyma has normal attenuation. The torres-white matter differentiation is well preserved. No evidence of an acute major vascular territory infarction. No intracranial hemorrhage, extra-axial fluid collection, focal mass effect or midline shift. The ventricles have normal size and configuration; no hydrocephalus. The brainstem and cerebellum have a normal appearance. The cerebellar tonsils are in normal position. The calvarium is intact. There is a mucous retention cyst of the floor of the right maxillary sinus. Otherwise, the paranasal sinuses, mastoid air cells and middle ear cavities are well aerated. The orbits and globes are unremarkable. The temporomandibular joints are normal. CT/CT head for stroke IMPRESSION: No acute intracranial pathology. This critical result was discussed with Dr. Andrade at 3:05 pm on 10/11/2022. It was ascertained that the content and urgency of the report was understood at the time of direct communication.
--- NOTE | ~2022-10-11 | MR_ITS ---
EXAMINATION: MR BRAIN WITHOUT CONTRAST CLINICAL INFORMATION: Left facial numbness and left arm numbness. Question right ischemia. COMPARISON: Head CTA 10/11/2022. TECHNIQUE: Multiplanar, multisequence imaging of the brain was performed without intravenous contrast. FINDINGS: There is no acute infarction, hemorrhage, mass, or extra-axial fluid collection. The ventricles are normal in size and configuration without hydrocephalus. Mild nonspecific foci of T2/FLAIR hyperintensity are seen within the cerebral white matter. The major arterial flow voids are preserved at the skull base. Incidentally noted is a heterogeneous signal intensity well-circumscribed lobulated mass arising from the right aspect of the hard palate with resultant osseous remodeling. There is no infiltration into the adjacent soft tissues. No significant destructive change. MR/MR head/brain wo con IMPRESSION: No acute intracranial abnormality. Specifically, no evidence of acute infarction. Incidentally noted well-circumscribed lobulated mass arising from the right aspect of the hard palate with resultant osseous remodeling. 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 Recommend ENT evaluation.
--- NOTE | ~2022-10-11 | CT_ITS ---
EXAMINATION: CT ANGIOGRAM HEAD CT ANGIOGRAM NECK CLINICAL INFORMATION: L side weakness COMPARISON: Same-day CT head and MRI brain 01/08/2022. TECHNIQUE: Initial noncontrast book solicitor imaging of the head and neck was performed. Comparison is made with noncontrast head CT from earlier today. Test bolus sequences followed by intravenous administration 70 mL of Omnipaque 350. Helical imaging was performed in the axial plane from the aortic arch to the skull vertex. Delayed postcontrast imaging of the head was also performed. The data was processed at the mineral technologist's workstation for generation of MIP sequences. Angled MIPs and volume rendered reformatted images were also generated at an offline 3D workstation. Stenoses are assessed in accordance with NASCET criteria unless otherwise indicated. This CT examination was performed using dose optimization techniques as appropriate, variously including the following: *Automated exposure control *Adjustment of mA and/or kV according to patient size (this includes techniques or standardized protocols for targeted exams where dose is matched to indication/reason for exam; i.e. extremities or head) *Use of iterative reconstruction technique DLP: 1417 mGy-cm FINDINGS: CT HEAD: Incidental enlarged partially empty sella, otherwise noncontrast head CT findings discussed separately. No pathologic intra-axial enhancement within limitations of CT or regional oligemia. CTA HEAD: Limited assessment due to venous contamination. Trace multifocal calcific plaque along the carotid siphons without significant luminal stenosis. Short segment apparent severe stenosis of a right M2 superior division branch, noting adjacent venous contamination limits assessment (images [id number], series 6). The left MCA complex patent.) The JUVENTINO complexes are normal bilaterally. The intradural vertebral arteries are patent. The basilar artery is normal. The posterior cerebral arteries are widely patent. No proximal large vessel occlusion. No aneurysms and no high flow vascular malformations. No evidence of dural arteriovenous fistula. Timing of the contrast bolus allows assessment of the major dural venous sinuses, which all opacify normally CTA NECK: Suboptimal contrast bolus timing. Classic 3 vessel anatomy of the aortic arch. Calcification of the ligamentum arteriosum. Trace calcific plaque of the left common carotid artery. Origins of the great vessels are widely patent. The common carotid arteries are widely patent. The carotid bifurcations and bilateral internal carotid arteries are normal. The vertebral artery ostia are widely patent. Both vertebral arteries are widely patent throughout their extracranial cervical course. CT NECK: Scattered dental caries, notably with a periapical lucency associated with the left first and second mandibular molar teeth. Bilateral TMJ osteoarthrosis. Symmetroc prominence of bilateral pontine tonsils, probably reactive. The salivary glands are unremarkable. The thyroid gland is unremarkable. Enlarged right greater than left level 2A lymph nodes measuring up to 1.5 cm in long axis. Moderate C6-C7 and mild C5-C6 discogenic disease with multilevel mild cervical spondylosis. No definite high-grade spinal canal stenosis, noting MRI would be more sensitive modality. Mild to moderate bilateral C5-C6 and severe left C6-C7 neural foraminal stenosis. The visualized lung apices and upper mediastinum are within normal limits. CT/CT angio head neck stroke IMPRESSION: 1. Incidental enlarged partially empty sella, otherwise noncontrast head CT findings discussed separately. 2. Short segment apparent severe stenosis of a right M2 superior division branch, noting adjacent venous contamination limits assessment. 3. No other significant arterial stenosis or large vessel occlusion in the head or neck. 4. Scattered dental caries; correlate with dental examination. 5. Cervical spondylosis with mild to moderate bilateral C5-C6 and severe left C6-C7 neural foraminal stenosis. No definite high-grade spinal canal stenosis, noting MRI would be more sensitive modality. Impression [address] Andrade on 10/11/2022 at 15:34.
--- NOTE | 2022-10-11 14:39 | ED_ITS ---
HPI - General Adult General Chief complaint: Stroke <MARQUITA Woodruff - Last Filed: 10/11/22 14:48> Stated complaint: numbness in face and left side of body <MARQUITA Woodruff - Last Filed: 10/11/22 14:48> Time Seen by Provider: 10/11/22 14:59 <MARQUITA Woodruff - Last Filed: 10/11/22 14:48> Related Data Home medications: Previous Rx's Medication Instructions Recorded hydrochlorothiazide 25 mg tablet 25 mg PO DAILY 30 days #30 tabs 09/11/21 lisinopril 20 mg tablet 20 mg PO DAILY 30 days #30 tabs 09/11/21 <MARQUITA Woodruff - Last Filed: 10/11/22 14:48> Allergies/adverse reactions: Allergies Allergy/AdvReac Type Severity Reaction Status Date / Time No Known Allergies Allergy Mild NONE Verified 09/11/21 17:10 <MARQUITA Woodruff - Last Filed: 10/11/22 14:48> [facility] Social History Social History: Social History Alcohol intake: current Alcohol intake frequency: holidays/special occasions only Smoked in Last 30 Days: No Use of substances other than those prescribed or required for medical reasons: No Advance Directives: No Advance Directives Information Provided: No <MARQUITA Woodruff - Last Filed: 10/11/22 14:48> Physical Exam ED Vital Signs: Vital Signs - 24 hr 10/11/22 14:41 10/11/22 15:23 Temperature 97.5 F 98 F Pulse Rate 71 78 Respiratory Rate 18 15 Blood Pressure 201/96 H 165/78 H Pulse Oximetry 97 97 Oxygen Delivery Method Room Air Room Air BMI result Body Mass Index 36.8 <MARQUITA Woodruff - Last Filed: 10/11/22 14:48> Vital Signs - 24 hr 10/11/22 14:41 10/11/22 15:23 Temperature 97.5 F 98 F Pulse Rate 71 78 Respiratory Rate 18 15 Blood Pressure 201/96 H 165/78 H Pulse Oximetry 97 97 Oxygen Delivery Method Room Air Room Air BMI result Body Mass Index 36.8 <Han Andrade MD - Last Filed: 10/11/22 16:33> Course Course Course Narrative: RME-- 57yo F w/PMHx HTN c/o sudden onset L sided heaviness and numbness/tingling 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 Denies taking any AC. Admits to feeling foggy. Denies MAO, CP HTNsive in triage 201/96, LUE and LLE slightly weaker that R side, ambulating with steady gait, CN intact. No drift Stroke Protocol activated, viscose cellar charge hand and ED Attending aware <MARQUITA Woodruff - Last Filed: 10/11/22 14:48> Reevaluation(s) Reevaluation #1: i DISCUSSED THE CASE WITH NEUROLOGIST dR Harmon,i ASLO SPOKE WITH HOSPITALIST <Han Andrade MD - Last Filed: 10/11/22 16:33> Time: 16:32 <Han Andrade MD - Last Filed: 10/11/22 16:33> Medications Administered Discontinued Medications Generic Name Dose Route Start Last Admin Trade Name Freq PRN Reason Stop Dose Admin Iohexol 100 ml 10/11/22 14:56 10/11/22 14:57 Iohexol 350 Mg/Ml 100 Ml Infus..Btl IV 10/11/22 14:57 70 ml ONCE ONE Administration <MARQUITA Woodruff - Last Filed: 10/11/22 14:48> Medications Administered Discontinued Medications Generic Name Dose Route Start Last Admin Trade Name Freq PRN Reason Stop Dose Admin Iohexol 100 ml 10/11/22 14:56 10/11/22 14:57 Iohexol 350 Mg/Ml 100 Ml Infus..Btl IV 10/11/22 14:57 70 ml ONCE ONE Administration <Han Andrade MD - Last Filed: 10/11/22 16:33> Medical Decision Making Medical Decision Making MDM Narrative: PATIENT PRESENTED WITH LEFT FACIAL NUMBNESS LEFT ARM NUMBNESS CT MINUS NEGATIVE WILL PROCEED WITH CTA <Han Andrade MD - Last Filed: 10/11/22 16:33> Differential Diagnosis Differential Diagnoses: The differential diagnosis associated with the presentation includes <Han Andrade MD - Last Filed: 10/11/22 16:33> CVA/TIA <Han Andrade MD - Last Filed: 10/11/22 16:33> Admission/Observation Consideration of admission/observation: Escalation of care including admission/observation considered <Han Andrade MD - Last Filed: 10/11/22 16:33> Consult Healthcare Provider Management of the patient was discussed with: Correctional Maintenance Technician <Han Andrade MD - Last Filed: 10/11/22 16:33> dr Harmon NEUROLOGIST <Han Andrade MD - Last Filed: 10/11/22 16:33> Lab Data MDM Lab Attestation statement: I reviewed the patient's lab results. <Han Andrade MD - Last Filed: 10/11/22 16:33> Result Diagrams: 10/11/22 15:47 10/11/22 15:47 <MARQUITA Woodruff - Last Filed: 10/11/22 14:48> Labs: Lab Results 10/11/22 10/11/22 10/11/22 Range/Units 14:51 14:54 15:47 WBC 7.0 (4.8-10.8) X10*3/uL RBC 4.92 (4.20-5.50) X10*6/uL Hgb 15.2 (12.0-16.0) g/dl Hct 42.7 (37.0-47.0) % MCV 86.8 (80.0-98.0) fL MCH 30.9 (27.0-33.0) pg MCHC 35.6 H (31.0-35.0) g/dl RDW 12.4 (11.0-16.0) % Plt Count 273 (160-400) X10*3/uL MPV 9.9 (9.4-12.3) fL Immature Gran % (Auto) 0.1 (0.0-0.4) % Neut % (Auto) 65.6 (45-73) % Lymph % (Auto) 26.4 (20-40) % [place] % (Auto) 5.8 (2-11) % Eos % (Auto) 1.7 (0-4) % Baso % (Auto) 0.4 (0-2) % Lymph # (Auto) 1.9 (1.2-4.9) X10*3/uL [place] # (Auto) 0.4 (0.1-1.2) X10*3/uL Eos # (Auto) 0.1 (0.0-0.4) X10*3/uL Baso # (Auto) 0.0 (0.0-0.2) X10*3/uL Abs Immat Gran (auto) 0.01 (0.00-0.03) X10*3/uL Absolute Neuts (auto) 4.6 (2.0-8.3) x10*3/uL Absolute Nucleated RBC 0.000 (0.0-0.012) X10*3/uL Nucleated RBC % (auto) 0.0 (0.0-0.2) /100WBC PT (10.0-13.1) SEC Whole Blood PT 12.4 (11.1-13.5) sec INR (0.9-1.1) Whole Blood INR 1.0 (0.9-1.1) APTT (26.0-36.4) SEC Sodium (135-145) mmol/L Potassium (3.3-5.1) mmol/L Chloride (96-108) mmol/L Carbon Dioxide (22-29) mmol/L Anion Gap (12-20) BUN (9-16) mg/dL Creatinine (0.5-1.4) mg/dL Estim Creat Clear Calc Estimated GFR POC Glucose 153 H (60-115) mg/dL Random Glucose (60-115) mg/dL Calcium (8.4-10.2) mg/dL Magnesium (1.6-2.6) mg/dL Total Bilirubin (0.0-1.0) mg/dL Direct Bilirubin (0.0-0.5) mg/dL AST (5-31) U/L ALT (0-31) U/L Alkaline Phosphatase (39-117) U/L Total Protein (6.5-8.0) g/dL Albumin (3.5-5.0) g/dL COVID-19 ([facility]) (Negative) COVID-19 Clin Com 10/11/22 10/11/22 10/11/22 Range/Units 15:47 15:47 15:47 WBC (4.8-10.8) X10*3/uL RBC (4.20-5.50) X10*6/uL Hgb (12.0-16.0) g/dl Hct (37.0-47.0) % MCV (80.0-98.0) fL MCH (27.0-33.0) pg MCHC (31.0-35.0) g/dl RDW (11.0-16.0) % Plt Count (160-400) X10*3/uL MPV (9.4-12.3) fL Immature Gran % (Auto) (0.0-0.4) % Neut % (Auto) (45-73) % Lymph % (Auto) (20-40) % [place] % (Auto) (2-11) % Eos % (Auto) (0-4) % Baso % (Auto) (0-2) % Lymph # (Auto) (1.2-4.9) X10*3/uL [place] # (Auto) (0.1-1.2) X10*3/uL Eos # (Auto) (0.0-0.4) X10*3/uL Baso # (Auto) (0.0-0.2) X10*3/uL Abs Immat Gran (auto) (0.00-0.03) X10*3/uL Absolute Neuts (auto) (2.0-8.3) x10*3/uL Absolute Nucleated RBC (0.0-0.012) X10*3/uL Nucleated RBC % (auto) (0.0-0.2) /100WBC PT 11.5 (10.0-13.1) SEC Whole Blood PT (11.1-13.5) sec INR 1.0 (0.9-1.1) Whole Blood INR (0.9-1.1) APTT 33.2 (26.0-36.4) SEC Sodium 139 (135-145) mmol/L Potassium 3.5 D (3.3-5.1) mmol/L Chloride 103 (96-108) mmol/L Carbon Dioxide 24 (22-29) mmol/L Anion Gap 16 (12-20) BUN 18 H (9-16) mg/dL Creatinine 0.78 (0.5-1.4) mg/dL Estim Creat Clear Calc 90.2 Estimated GFR > 60 POC Glucose (60-115) mg/dL Random Glucose 140 H (60-115) mg/dL Calcium 9.3 D (8.4-10.2) mg/dL Magnesium 1.9 (1.6-2.6) mg/dL Total Bilirubin 0.6 (0.0-1.0) mg/dL Direct Bilirubin 0.2 (0.0-0.5) mg/dL AST 19 (5-31) U/L ALT 23 (0-31) U/L Alkaline Phosphatase 74 (39-117) U/L Total Protein 7.1 (6.5-8.0) g/dL Albumin 4.4 (3.5-5.0) g/dL COVID-19 ([facility]) Negative (Negative) COVID-19 Clin Com See Note <MARQUITA Woodruff - Last Filed: 10/11/22 14:48> Lab Results 10/11/22 10/11/22 10/11/22 Range/Units 14:51 14:54 15:47 WBC 7.0 (4.8-10.8) X10*3/uL RBC 4.92 (4.20-5.50) X10*6/uL Hgb 15.2 (12.0-16.0) g/dl Hct 42.7 (37.0-47.0) % MCV 86.8 (80.0-98.0) fL MCH 30.9 (27.0-33.0) pg MCHC 35.6 H (31.0-35.0) g/dl RDW 12.4 (11.0-16.0) % Plt Count 273 (160-400) X10*3/uL MPV 9.9 (9.4-12.3) fL Immature Gran % (Auto) 0.1 (0.0-0.4) % Neut % (Auto) 65.6 (45-73) % Lymph % (Auto) 26.4 (20-40) % [place] % (Auto) 5.8 (2-11) % Eos % (Auto) 1.7 (0-4) % Baso % (Auto) 0.4 (0-2) % Lymph # (Auto) 1.9 (1.2-4.9) X10*3/uL [place] # (Auto) 0.4 (0.1-1.2) X10*3/uL Eos # (Auto) 0.1 (0.0-0.4) X10*3/uL Baso # (Auto) 0.0 (0.0-0.2) X10*3/uL Abs Immat Gran (auto) 0.01 (0.00-0.03) X10*3/uL Absolute Neuts (auto) 4.6 (2.0-8.3) x10*3/uL Absolute Nucleated RBC 0.000 (0.0-0.012) X10*3/uL Nucleated RBC % (auto) 0.0 (0.0-0.2) /100WBC PT (10.0-13.1) SEC Whole Blood PT 12.4 (11.1-13.5) sec INR (0.9-1.1) Whole Blood INR 1.0 (0.9-1.1) APTT (26.0-36.4) SEC Sodium (135-145) mmol/L Potassium (3.3-5.1) mmol/L Chloride (96-108) mmol/L Carbon Dioxide (22-29) mmol/L Anion Gap (12-20) BUN (9-16) mg/dL Creatinine (0.5-1.4) mg/dL Estim Creat Clear Calc Estimated GFR POC Glucose 153 H (60-115) mg/dL Random Glucose (60-115) mg/dL Calcium (8.4-10.2) mg/dL Magnesium (1.6-2.6) mg/dL Total Bilirubin (0.0-1.0) mg/dL Direct Bilirubin (0.0-0.5) mg/dL AST (5-31) U/L ALT (0-31) U/L Alkaline Phosphatase (39-117) U/L Total Protein (6.5-8.0) g/dL Albumin (3.5-5.0) g/dL COVID-19 ([facility]) (Negative) COVID-19 Clin Com 10/11/22 10/11/22 10/11/22 Range/Units 15:47 15:47 15:47 WBC (4.8-10.8) X10*3/uL RBC (4.20-5.50) X10*6/uL Hgb (12.0-16.0) g/dl Hct (37.0-47.0) % MCV (80.0-98.0) fL MCH (27.0-33.0) pg MCHC (31.0-35.0) g/dl RDW (11.0-16.0) % Plt Count (160-400) X10*3/uL MPV (9.4-12.3) fL Immature Gran % (Auto) (0.0-0.4) % Neut % (Auto) (45-73) % Lymph % (Auto) (20-40) % [place] % (Auto) (2-11) % Eos % (Auto) (0-4) % Baso % (Auto) (0-2) % Lymph # (Auto) (1.2-4.9) X10*3/uL [place] # (Auto) (0.1-1.2) X10*3/uL Eos # (Auto) (0.0-0.4) X10*3/uL Baso # (Auto) (0.0-0.2) X10*3/uL Abs Immat Gran (auto) (0.00-0.03) X10*3/uL Absolute Neuts (auto) (2.0-8.3) x10*3/uL Absolute Nucleated RBC (0.0-0.012) X10*3/uL Nucleated RBC % (auto) (0.0-0.2) /100WBC PT 11.5 (10.0-13.1) SEC Whole Blood PT (11.1-13.5) sec INR 1.0 (0.9-1.1) Whole Blood INR (0.9-1.1) APTT 33.2 (26.0-36.4) SEC Sodium 139 (135-145) mmol/L Potassium 3.5 D (3.3-5.1) mmol/L Chloride 103 (96-108) mmol/L Carbon Dioxide 24 (22-29) mmol/L Anion Gap 16 (12-20) BUN 18 H (9-16) mg/dL Creatinine 0.78 (0.5-1.4) mg/dL Estim Creat Clear Calc 90.2 Estimated GFR > 60 POC Glucose (60-115) mg/dL Random Glucose 140 H (60-115) mg/dL Calcium 9.3 D (8.4-10.2) mg/dL Magnesium 1.9 (1.6-2.6) mg/dL Total Bilirubin 0.6 (0.0-1.0) mg/dL Direct Bilirubin 0.2 (0.0-0.5) mg/dL AST 19 (5-31) U/L ALT 23 (0-31) U/L Alkaline Phosphatase 74 (39-117) U/L Total Protein 7.1 (6.5-8.0) g/dL Albumin 4.4 (3.5-5.0) g/dL COVID-19 ([facility]) Negative (Negative) COVID-19 Clin Com See Note <Han Andrade MD - Last Filed: 10/11/22 16:33> Discharge Plan Discharge Clinical Impression: Numbness and tingling of left side of face <MARQUITA Woorduff - Last Filed: 10/11/22 14:48> Patient Disposition: Admitted As Inpatient <MARQUITA Woodruff - Last Filed: 10/11/22 14:48>
[2022-10-11 14:41] VITALS: BP 201/96; PULSE 71; RESP 18; TEMP 36.4; O2SAT 97; BMI 36.8
--- NOTE | 2022-10-11 14:43 | ECG_ITS ---
Test Reason : STROKE? Blood Pressure : / mmHG Vent. Rate : 076 BPM Atrial Rate : 076 BPM P-R Int : 160 ms QRS Dur : 084 ms QT Int : 424 ms P-R-T Axes : 034 -18 015 degrees QTc Int : 477 ms Normal sinus rhythm Moderate voltage criteria for LVH, may be normal variant ( R in aVL , Ridge product ) Anteroseptal infarct (cited on or before 11-SEP-2021) Abnormal ECG When compared with ECG of 11-SEP-2021 17:50, Questionable change in initial forces of Anterior leads QT has lengthened Referred By: Nadya Hanks Electronically Signed By:MEGHNA MCCRAY MD
[2022-10-11 14:55] LABS: Glucose, Whole Blood 153 mg/dL (60-115)
[2022-10-11] MEDS: iohexoL 350 MG/ML 100 ML INFUS..BTL IV (14:57)
[2022-10-11 14:58] LABS: Prothrombin Time Whole Bld POC 12.4 sec (11.1-13.5)
--- NOTE | 2022-10-11 15:19 | ED_ITS ---
HPI - Neuro Symptoms/Deficit General Chief Complaint: Stroke Stated Complaint: numbness in face and left side of body Time Seen by Provider: 10/11/22 14:59 Source: patient Mode of arrival: ambulatory Limitations: no limitations History of Present Illness HPI Narrative: Patient presented to the emergency department complaining of a left facial tingling/numbness left arm numbness onset of 2 hours ago she is ambulatory to the emergency department Onset (ago): hour(s) Time: 15:19 Location: left face History of same: No Severity: mild Quality: numb and tingling Relieving factors: none Exacerbating factors: none Context: gradual onset Associated symptoms: denies other symptoms Related Data Home Medications Medication Instructions Recorded Confirmed acetaminophen 500 mg tablet 1,000 mg PO Q6H PRN Pain 10/11/22 10/11/22 amlodipine 5 mg tablet 5 mg PO DAILY 10/11/22 10/11/22 lisinopril 20 mg tablet 20 mg PO BID 10/11/22 10/11/22 Previous Rx's Medication Instructions Recorded hydrochlorothiazide 25 mg tablet 25 mg PO DAILY 30 days #30 tabs 09/11/21 Allergies Allergy/AdvReac Type Severity Reaction Status Date / Time No Known Allergies Allergy Mild NONE Verified 09/11/21 17:10 Review of Systems Constitutional: Constitutional: Reports no additional constitutional complaints ENT: Reports system reviewed and no additional complaints, except as documented Respiratory: Respiratory: Reports no additional respiratory complaints Neurologic: Reports as per HPI [facility] Past Medical History [facility] Narrative: HTN Social History Social History Alcohol intake: current Alcohol intake frequency: holidays/special occasions only Patient Tobacco Use Status: Never used Tobacco Smoked in Last 30 Days: No Use of substances other than those prescribed or required for medical reasons: No Advance Directives: No Advance Directives Information Provided: No Physical Exam Vital Signs: Vital Signs: Last Vital Signs Temp 97.4 F 10/12/22 04:00 Pulse 52 10/12/22 04:00 Resp 20 10/12/22 04:00 BP 131/69 10/12/22 04:00 Pulse Ox 94 10/12/22 04:00 O2 Del Method Room Air 10/12/22 04:00 BMI result Body Mass Index 36.8 Const: General: cooperative, healthy appearing, comfortable and no acute distress Nutritional Appearance: average body habitus Orientation/consciousness: oriented to person and patient oriented x3 Limitations: no limitations HEENT: Head: Yes normal to inspection Ears: hearing grossly normal bilaterally Face and sinus: Yes normal facial exam Mouth: Normal oral and palatal mucosa present Throat: Yes posterior oropharynx normal Eyes: Pupils: Equal, round and reactive pupils present Neck: Neck: Yes normal visual inspection and Yes full ROM Resp: Effort & Inspection: normal respiratory effort Auscultation: clear to auscultation bilaterally Cardio: Rate: regular rate Rhythm: regular rhythm GI: Inspection: Yes normal to inspection Percussion: Yes normal to percussion : General: Yes no CVA tenderness Back/Spine/Pelvis: Back: no CVA tenderness Neuro: General: oriented to person and patient oriented x3 Cranial nerves: Yes CN's II-XII intact bilaterally, Yes Equal, round and reactive pupils present, Yes Bilaterally intact EOM present and Yes Nystagmus not present Gait exam (Neuro): Normal gait present Motor exam (neuro): 5/5 motor strength present throughout, Pronator motor function not present and no tremor noted Course Reevaluation(s) Reevaluation #1: pt presented with numbness left face and arm at time of arrival stroke scale 0 ,consulted Dr Acosta will admit ,no TPA candidate ,CT minus negative Medications Administered Generic Name Dose Route Start Last Admin Trade Name Freq PRN Reason Stop Dose Admin Atorvastatin Calcium 40 mg 10/11/22 18:15 10/11/22 19:03 Atorvastatin Calcium 40 Mg Tablet PO 40 mg DAILY [place] Administration Enoxaparin Sodium 40 mg 10/11/22 20:00 10/11/22 19:03 Enoxaparin Sodium 40 Mg/0.4 Ml Syringe SUBCUT 40 mg Q24H [place] Administration Sodium Chloride 3 ml 10/12/22 00:00 10/12/22 00:38 0.9 % Sodium Chloride Flush 3 Ml Syringe IVFLUSH 3 ml QSHIFT [place] Administration Discontinued Medications Generic Name Dose Route Start Last Admin Trade Name Freq PRN Reason Stop Dose Admin Aspirin 325 mg 10/11/22 16:21 10/11/22 16:45 Aspirin 325 Mg Tablet PO 10/11/22 16:22 325 mg ONCE ONE Administration Iohexol 100 ml 10/11/22 14:56 10/11/22 14:57 Iohexol 350 Mg/Ml 100 Ml Infus..Btl IV 10/11/22 14:57 70 ml ONCE ONE Administration Medical Decision Making Medical Decision Making [facility] Narrative: Patient presents in numbness in the left side of the face, she is neurologically intact she has no deficit whatsoever, stroke scale is 0 will do MRI of the brain Differential Diagnosis Differential Diagnoses: The differential diagnosis associated with the presenta tion includes TIA/ paresthesia Consult Healthcare Provider Management of the patient was discussed with: Associate Professor Of Philosophy Dr Acosta Lab Data [facility] Lab Attestation statement: I reviewed the patient's lab results. 10/11/22 15:47 10/11/22 15:47 Labs: Lab Results 10/11/22 10/11/22 10/11/22 Range/Units 14:51 14:54 15:47 WBC 7.0 (4.8-10.8) X10*3/uL RBC 4.92 (4.20-5.50) X10*6/uL Hgb 15.2 (12.0-16.0) g/dl Hct 42.7 (37.0-47.0) % MCV 86.8 (80.0-98.0) fL MCH 30.9 (27.0-33.0) pg MCHC 35.6 H (31.0-35.0) g/dl RDW 12.4 (11.0-16.0) % Plt Count 273 (160-400) X10*3/uL MPV 9.9 (9.4-12.3) fL Immature Gran % (Auto) 0.1 (0.0-0.4) % Neut % (Auto) 65.6 (45-73) % Lymph % (Auto) 26.4 (20-40) % [place] % (Auto) 5.8 (2-11) % Eos % (Auto) 1.7 (0-4) % Baso % (Auto) 0.4 (0-2) % Lymph # (Auto) 1.9 (1.2-4.9) X10*3/uL [place] # (Auto) 0.4 (0.1-1.2) X10*3/uL Eos # (Auto) 0.1 (0.0-0.4) X10*3/uL Baso # (Auto) 0.0 (0.0-0.2) X10*3/uL Abs Immat Gran (auto) 0.01 (0.00-0.03) X10*3/uL Absolute Neuts (auto) 4.6 (2.0-8.3) x10*3/uL Absolute Nucleated RBC 0.000 (0.0-0.012) X10*3/uL Nucleated RBC % (auto) 0.0 (0.0-0.2) /100WBC PT (10.0-13.1) SEC Whole Blood PT 12.4 (11.1-13.5) sec INR (0.9-1.1) Whole Blood INR 1.0 (0.9-1.1) APTT (26.0-36.4) SEC Sodium (135-145) mmol/L Potassium (3.3-5.1) mmol/L Chloride (96-108) mmol/L Carbon Dioxide (22-29) mmol/L Anion Gap (12-20) BUN (9-16) mg/dL Creatinine (0.5-1.4) mg/dL Estim Creat Clear Calc Estimated GFR POC Glucose 153 H (60-115) mg/dL Random Glucose (60-115) mg/dL Calcium (8.4-10.2) mg/dL Magnesium (1.6-2.6) mg/dL Total Bilirubin (0.0-1.0) mg/dL Direct Bilirubin (0.0-0.5) mg/dL AST (5-31) U/L ALT (0-31) U/L Alkaline Phosphatase (39-117) U/L Troponin I High Sens (<3.5-17.0) ng/L Total Protein (6.5-8.0) g/dL Albumin (3.5-5.0) g/dL COVID-19 ([facility]) (Negative) COVID-19 Clin Com 10/11/22 10/11/22 10/11/22 Range/Units 15:47 15:47 15:47 WBC (4.8-10.8) X10*3/uL RBC (4.20-5.50) X10*6/uL Hgb (12.0-16.0) g/dl Hct (37.0-47.0) % MCV (80.0-98.0) fL MCH (27.0-33.0) pg MCHC (31.0-35.0) g/dl RDW (11.0-16.0) % Plt Count (160-400) X10*3/uL MPV (9.4-12.3) fL Immature Gran % (Auto) (0.0-0.4) % Neut % (Auto) (45-73) % Lymph % (Auto) (20-40) % [place] % (Auto) (2-11) % Eos % (Auto) (0-4) % Baso % (Auto) (0-2) % Lymph # (Auto) (1.2-4.9) X10*3/uL [place] # (Auto) (0.1-1.2) X10*3/uL Eos # (Auto) (0.0-0.4) X10*3/uL Baso # (Auto) (0.0-0.2) X10*3/uL Abs Immat Gran (auto) (0.00-0.03) X10*3/uL Absolute Neuts (auto) (2.0-8.3) x10*3/uL Absolute Nucleated RBC (0.0-0.012) X10*3/uL Nucleated RBC % (auto) (0.0-0.2) /100WBC PT 11.5 (10.0-13.1) SEC Whole Blood PT (11.1-13.5) sec INR 1.0 (0.9-1.1) Whole Blood INR (0.9-1.1) APTT 33.2 (26.0-36.4) SEC Sodium 139 (135-145) mmol/L Potassium 3.5 D (3.3-5.1) mmol/L Chloride 103 (96-108) mmol/L Carbon Dioxide 24 (22-29) mmol/L Anion Gap 16 (12-20) BUN 18 H (9-16) mg/dL Creatinine 0.78 (0.5-1.4) mg/dL Estim Creat Clear Calc 90.2 Estimated GFR > 60 POC Glucose (60-115) mg/dL Random Glucose 140 H (60-115) mg/dL Calcium 9.3 D (8.4-10.2) mg/dL Magnesium 1.9 (1.6-2.6) mg/dL Total Bilirubin 0.6 (0.0-1.0) mg/dL Direct Bilirubin 0.2 (0.0-0.5) mg/dL AST 19 (5-31) U/L ALT 23 (0-31) U/L Alkaline Phosphatase 74 (39-117) U/L Troponin I High Sens < 3.5 (<3.5-17.0) ng/L Total Protein 7.1 (6.5-8.0) g/dL Albumin 4.4 (3.5-5.0) g/dL COVID-19 ([facility]) (Negative) COVID-19 Clin Com 10/11/22 Range/Units 15:47 WBC (4.8-10.8) X10*3/uL RBC (4.20-5.50) X10*6/uL Hgb (12.0-16.0) g/dl Hct (37.0-47.0) % MCV (80.0-98.0) fL MCH (27.0-33.0) pg MCHC (31.0-35.0) g/dl RDW (11.0-16.0) % Plt Count (160-400) X10*3/uL MPV (9.4-12.3) fL Immature Gran % (Auto) (0.0-0.4) % Neut % (Auto) (45-73) % Lymph % (Auto) (20-40) % [place] % (Auto) (2-11) % Eos % (Auto) (0-4) % Baso % (Auto) (0-2) % Lymph # (Auto) (1.2-4.9) X10*3/uL [place] # (Auto) (0.1-1.2) X10*3/uL Eos # (Auto) (0.0-0.4) X10*3/uL Baso # (Auto) (0.0-0.2) X10*3/uL Abs Immat Gran (auto) (0.00-0.03) X10*3/uL Absolute Neuts (auto) (2.0-8.3) x10*3/uL Absolute Nucleated RBC (0.0-0.012) X10*3/uL Nucleated RBC % (auto) (0.0-0.2) /100WBC PT (10.0-13.1) SEC Whole Blood PT (11.1-13.5) sec INR (0.9-1.1) Whole Blood INR (0.9-1.1) APTT (26.0-36.4) SEC Sodium (135-145) mmol/L Potassium (3.3-5.1) mmol/L Chloride (96-108) mmol/L Carbon Dioxide (22-29) mmol/L Anion Gap (12-20) BUN (9-16) mg/dL Creatinine (0.5-1.4) mg/dL Estim Creat Clear Calc Estimated GFR POC Glucose (60-115) mg/dL Random Glucose (60-115) mg/dL Calcium (8.4-10.2) mg/dL Magnesium (1.6-2.6) mg/dL Total Bilirubin (0.0-1.0) mg/dL Direct Bilirubin (0.0-0.5) mg/dL AST (5-31) U/L ALT (0-31) U/L Alkaline Phosphatase (39-117) U/L Troponin I High Sens (<3.5-17.0) ng/L Total Protein (6.5-8.0) g/dL Albumin (3.5-5.0) g/dL COVID-19 ([facility]) Negative (Negative) COVID-19 Clin Com See Note Independent Interpretation I performed an independent interpretation of an: EKG (Normal sinus rhythm rate [address]-T changes) Interpretation: sinus no ischemia Radiology Impression Discussion of test interpretation with radiology: I discussed test interpretation with the radiologist and I have reviewed the radiologist's reading. Radiologist Impression: CT minus no cva Discharge Plan Discharge Clinical Impression: Numbness and tingling of left side of face Patient Disposition: Admitted As Inpatient Interventions: Admission Worksheet (ED) Last Done: 10/11/22 21:06 Discharge Date/Time: 10/11/22 21:07
[2022-10-11 15:23] VITALS: BP 165/78; PULSE 78; RESP 15; TEMP 36.6; O2SAT 97
--- NOTE | 2022-10-11 15:41 | PC.NURSE ---
pt AOx3, reporting left sided weakness, numbness and tingling in jaw area and shoulder. No facial droop, speaking clearly and without difficulty. gait steady. Noted weakness in left hand grasp as compared to right. Labs drawn, EKG done, CT done. Awaiting MRI. monitor technician on, will continue to monitor.
[2022-10-11 15:52] LABS: MANUAL DIFF FLAG NO
[2022-10-11 15:55] LABS: Basophils Percent Auto 0.4 % (0-2); Eosinophils Absolute Auto 0.1 X10*3/uL (0.0-0.4); Eosinophils Percent Auto 1.7 % (0-4); Hematocrit 42.7 % (37.0-47.0); Hemoglobin 15.2 g/dl (12.0-16.0); Imm Gran Abs Auto 0.01 X10*3/uL (0.00-0.03); Imm Gran Pct Auto 0.1 % (0.0-0.4); Lymphocytes Absolute Auto 1.9 X10*3/uL (1.2-4.9); Lymphocytes Percent Auto 26.4 % (20-40); Mean Corpuscular HGB Conc 35.6 g/dl (31.0-35.0); Mean Corpuscular Hemoglobin 30.9 pg (27.0-33.0); Mean Corpuscular Volume 86.8 fL (80.0-98.0); Mean Platelet Volume 9.9 fL (9.4-12.3); Monocytes Absolute Auto 0.4 X10*3/uL (0.1-1.2); Monocytes Percent Auto 5.8 % (2-11); Neutrophils Absolute Auto 4.6 x10*3/uL (2.0-8.3); Neutrophils Percent Auto 65.6 % (45-73); Platelet Count 273 X10*3/uL (160-400); Red Blood Count 4.92 X10*6/uL (4.20-5.50); Red Cell Distribution Width 12.4 % (11.0-16.0)
[2022-10-11 16:01] LABS: Prothrombin Time 11.5 SEC (10.0-13.1)
[2022-10-11 16:03] LABS: Partial Thromboplastin Time 33.2 SEC (26.0-36.4)
[2022-10-11 16:08] LABS: COVID-19 Test Negative (Negative); IDNOW Serial# 9DB6401D
--- NOTE | 2022-10-11 16:12 | PC.NURSE ---
pt to MRI with RN on trimmer sawyer.
[2022-10-11 16:26] LABS: Alanine Aminotransferase 23 U/L (0-31); Albumin Level 4.4 g/dL (3.5-5.0); Alkaline Phosphatase 74 U/L (39-117); Anion Gap 16 (12-20); Aspartate Amino Transferase 19 U/L (5-31); Bilirubin Direct 0.2 mg/dL (0.0-0.5); Bilirubin Total 0.6 mg/dL (0.0-1.0); Blood Urea Nitrogen 18 mg/dL (9-16); Calcium 9.3 mg/dL (8.4-10.2); Carbon Dioxide 24 mmol/L (22-29); Chloride 103 mmol/L (96-108); Creatinine Clr Calc Pharmacy 90.2; Estimated Glomerular Filt Rate > 60; Glucose Random 140 mg/dL (60-115); Magnesium 1.9 mg/dL (1.6-2.6); Potassium 3.5 mmol/L (3.3-5.1); Sodium 139 mmol/L (135-145); Total Protein 7.1 g/dL (6.5-8.0)
[2022-10-11 16:34] LABS: Troponin-I High Sensitivity < 3.5 ng/L (<3.5-17.0)
--- NOTE | 2022-10-11 16:41 | PC.NURSE ---
pt back from MRI
[2022-10-11] MEDS: Aspirin 325 MG TABLET PO (16:45)
--- NOTE | 2022-10-11 16:46 | PC.NURSE ---
pt medicated per order. monitor tech on, will cont to monitor
--- NOTE | 2022-10-11 17:02 | P.HPHOSP_ITS ---
History of Present Illness Date of Service: 10/11/22 Attending physician on admission: Aron Lira Chief Complaint: Left-sided facial numbness Pt is a 57-year-old female with a PMH significant for primary?HTN who presents to the ED with?left-sided facial and upper extremity numbness and tingling. Pt states she has been experiencing numbness and tingling of her left upper extremity, chest, and face for a long time, but it is usually mild. No noted weakness. Has seen her PCP for this who has referred her to Dr. Samaniego in neurology. Has been attributed to HTN. Today, pt was at work when she noted a sudden wave of pins and needles in the same left-side area, but much stronger than usual. Lasted around 15 minutes before it began to mello some. Pt denies any left-sided weakness or that it extended to her abdomen or lower extremities. Denies lightheadedness, dizziness, nausea, vomiting, diaphoresis. Patient was able to ambulate and never loss consciousness. Denies fever, chills. No chest pain/pressure, palpitations. Denies shortness of breath. Patient states she still is not back to baseline and feels a residual ?heaviness? and increased pins and needles. No headache, changes in vision, difficulty speaking, or facial droop. In the ED patient was afebrile and hypertensive up to 201/96. Labs were a unremarkable. CXR showed no acute cardiopulmonary process. CT?of head showed no acute intracranial pathology. CTA head and neck showed short-segment with apparent stenosis of the right M2 superior division branch, with no other significant arterial stenosis or large vessel occlusion. Incidental findings include enlarged partially empty sella, scattered dental caries, and cervical spondylolysis with mild to moderate bilateral neural foraminal stenosis. MRI of brain found no acute intracranial abnormality, no evidence of acute infarction. Incidental finding: Well-circumscribed lobulated mass arising from the right aspect of the hard palate with resultant osseous remodeling. EKG demonstrated normal sinus rhythm without evidence of ST elevations or depressions. Pt was treated with aspirin 325 mg. Pt will be admitted to observation on telemetry for evaluation further workup for possible TIA. Review of Systems Review of Systems: Increased pins and needles sensation to left face, chest, upper extremity Denies numbness and tingling in left lower extremity No fever, chills, nausea, vomiting, abdominal pain Denies chest pain/pressure, palpitations No shortness of breath No headache, vision changes Yes all other systems are reviewed and are negative [facility] Social History Alcohol intake: current Alcohol intake frequency: holidays/special occasions only Smoked in Last 30 Days: No Use of substances other than those prescribed or required for medical reasons: No Advance Directives: No Advance Directives Information Provided: No Meds Allergies Allergy/AdvReac Type Severity Reaction Status Date / Time No Known Allergies Allergy Mild NONE Verified 09/11/21 17:10 Home Medications Medication Instructions Recorded Confirmed Last Taken Type acetaminophen 500 mg tablet 1,000 mg PO Q6H PRN Pain 10/11/22 10/11/22 Unknown History amlodipine 5 mg tablet 5 mg PO DAILY 10/11/22 10/11/22 10/11/22 History lisinopril 20 mg tablet 20 mg PO BID 10/11/22 10/11/22 10/11/22 History Physical Exam Vital Signs and Narrative: Vital Signs: Last Vital Signs Temp 98 F 10/11/22 15:23 Pulse 78 10/11/22 15:23 Resp 15 10/11/22 15:23 BP 165/78 H 10/11/22 15:23 Pulse Ox 97 10/11/22 15:23 O2 Del Method Room Air 10/11/22 15:23 BMI result Body Mass Index 36.8 Constitutional: Alert, in no acute distress. Mental Status: Oriented to person, place and time. Eyes: Pupils are equal, round, and reactive to light. Ear, Nose, and Throat: Oropharynx clear, mucous membranes moist. Ears and nose without deformities. Trachea midline. Respiratory: Clear to auscultation bilaterally. No wheezing, rales, or rhonchi. Cardiovascular: S1, S2 regular. No murmurs, rubs, or gallops. Gastrointestinal: Abdomen soft, non-tender, non-distended. Normal bowel sounds. Neurologic: Cranial nerves II-XII are grossly intact bilaterally. No focal neurological deficits. Moves all extremities spontaneously. 5/5 strength of upper and lower extremities bilaterally. Diminished sensation to light touch on left side of face, arm, and chest. Skin: No rashes or lesions noted. Musculoskeletal: No cyanosis or clubbing. Extremities: No edema. Psychiatric: Normal mood and affect. Results Labs 10/11/22 15:47 10/11/22 15:47 Labs: Laboratory Results - last 24 hr 10/11/22 10/11/22 10/11/22 14:51 14:54 15:47 MCV 86.8 MCH 30.9 MCHC 35.6 H RDW 12.4 Plt Count 273 MPV 9.9 Immature Gran % (Auto) 0.1 Neut % (Auto) 65.6 Lymph % (Auto) 26.4 Harris % (Auto) 5.8 Eos % (Auto) 1.7 Baso % (Auto) 0.4 Lymph # (Auto) 1.9 Harris # (Auto) 0.4 Eos # (Auto) 0.1 Baso # (Auto) 0.0 Abs Immat Gran (auto) 0.01 Absolute Neuts (auto) 4.6 Absolute Nucleated RBC 0.000 Nucleated RBC % (auto) 0.0 PT Whole Blood PT 12.4 INR Whole Blood INR 1.0 APTT Anion Gap Estim Creat Clear Calc Estimated GFR POC Glucose 153 H Random Glucose Calcium Magnesium Total Bilirubin Direct Bilirubin AST ALT Alkaline Phosphatase Troponin I High Sens Total Protein Albumin COVID-19 ([facility]) COVID-19 [employer] Com 10/11/22 10/11/22 10/11/22 15:47 15:47 15:47 MCV MCH MCHC RDW Plt Count MPV Immature Gran % (Auto) Neut % (Auto) Lymph % (Auto) Harris % (Auto) Eos % (Auto) Baso % (Auto) Lymph # (Auto) Harris # (Auto) Eos # (Auto) Baso # (Auto) Abs Immat Gran (auto) Absolute Neuts (auto) Absolute Nucleated RBC Nucleated RBC % (auto) PT 11.5 Whole Blood PT INR 1.0 Whole Blood INR APTT 33.2 Anion Gap 16 Estim Creat Clear Calc 90.2 Estimated GFR > 60 POC Glucose Random Glucose 140 H Calcium 9.3 D Magnesium 1.9 Total Bilirubin 0.6 Direct Bilirubin 0.2 AST 19 ALT 23 Alkaline Phosphatase 74 Troponin I High Sens < 3.5 Total Protein 7.1 Albumin 4.4 COVID-19 ([facility]) COVID-19 Clin Com 10/11/22 15:47 MCV MCH MCHC RDW Plt Count MPV Immature Gran % (Auto) Neut % (Auto) Lymph % (Auto) Harris % (Auto) Eos % (Auto) Baso % (Auto) Lymph # (Auto) Harris # (Auto) Eos # (Auto) Baso # (Auto) Abs Immat Gran (auto) Absolute Neuts (auto) Absolute Nucleated RBC Nucleated RBC % (auto) PT Whole Blood PT INR Whole Blood INR APTT Anion Gap Estim Creat Clear Calc Estimated GFR POC Glucose Random Glucose Calcium Magnesium Total Bilirubin Direct Bilirubin AST ALT Alkaline Phosphatase Troponin I High Sens Total Protein Albumin COVID-19 ([facility]) Negative COVID-19 Clin Com See Note Imaging Radiologist's Impressions: Impressions Head CT 10/11/22 14:53 IMPRESSION: No acute intracranial pathology. This critical result was discussed with Dr. Andrade at 3:05 pm on 10/11/2022. It was ascertained that the content and urgency of the report was understood at the time of direct communication. Head/Neck CTA 10/11/22 14:58 IMPRESSION: 1. Incidental enlarged partially empty sella, otherwise noncontrast head CT findings discussed separately. 2. Short segment apparent severe stenosis of a right M2 superior division branch, noting adjacent venous contamination limits assessment. 3. No other significant arterial stenosis or large vessel occlusion in the head or neck. 4. Scattered dental caries; correlate with dental examination. 5. Cervical spondylosis with mild to moderate bilateral C5-C6 and severe left C6-C7 neural foraminal stenosis. No definite high-grade spinal canal stenosis, noting MRI would be more sensitive modality. Impression [address] Andrade on 10/11/2022 at 15:34. Chest X-Ray 10/11/22 15:16 IMPRESSION: Unremarkable examination. Brain MRI 10/11/22 16:34 IMPRESSION: No acute intracranial abnormality. Specifically, no evidence of acute infarction. Incidentally noted well-circumscribed lobulated mass arising from the right aspect of the hard palate with resultant osseous remodeling. 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 Recommend ENT evaluation. Assessment and Plan (1) Numbness and tingling of left side of face: Status: Acute Plan Pt is a 57-year-old female with a PMH significant for primary?HTN who presents to the ED with?left-sided facial and upper extremity numbness and tingling. Pt will be admitted to observation on telemetry for evaluation further workup for possible TIA. Numbness and tingling of left face, chest, and upper extremity ?TIA vs sensory deficit vs HTN Pt with chronic sensory deficit in these areas, markedly worse today for a 15- minute period CT of head and MRI of brain showed no acute intracranial findings CTA head and neck showed short-segment with apparent stenosis of the right M2 superior division branch, with no other significant arterial stenosis or large vessel occlusion. Pt not quite back to baseline, but no motor deficit Aspirin 81 mg daily Atorvastatin 40 mg daily The profile PT/OT evaluation Neurology consult Admit to telemetry Hard palate mass Incidental finding on MRI: Well-circumscribed lobulated mass arising from the right aspect of the hard palate with resultant osseous remodeling Follow-up outpatient with ENT HTN Continue home meds Full Code Attending:?Dr. Lira DVT Prophylaxis: Lovenox Pt will be admitted to observation on telemetry for evaluation further workup for possible TIA. Time Spent With Patient Time: Total time managing care of this patient today ____ minutes. Quality Stroke Does the patient have a stroke diagnosis?: No VTE Prior VTE?: No VTE Risk Level:: Medical - moderate - high VTE Device Contraindication: Treatment Not Indicated VTE Drug Contraindication: N/A - Med Ordered
--- NOTE | 2022-10-11 17:21 | MHC.EDTECH ---
@ 1545 Dr Andrade requested Neuro and call placed for call back. @ 1610 Second call placed to Neuro for call back. @ 1615 [place] Text placed to Kaleigh E Learning Coordinator and Dr Samaniego. @ 1630 Second [place] Text placed. @ 1632 Dr Samaniego called and transferred to Dr Andrade.
[2022-10-11 18:06] VITALS: BP 152/76; PULSE 57; RESP 16; TEMP 36.6; O2SAT 96
--- NOTE | 2022-10-11 18:08 | P.EN_ITS ---
Event Note Date of Service: 10/11/22 Event Note: the patient was seen and evaluated with MARQUITA Hawkins. I agree with his note, assessment and plan with the following. A 57 years old lady with PMH of HTN who presents to the hospital with left upper extremity and face tingling sensation for 15 mins [employer]. the patient report persistent feeling of numbness and needles in her left arm and face that has been going on for a while and evaluated and believed to be related to high BP readings. today the incident was too overwhelming and new for her as she became concern of possible stroke. CTA, MRI were negative for any acute findings but reported severe stenosis of a right M2 superior division branch. was noted to have elevated BP readings at presentation of 200/110. Left sided tingling sensation CTA severe stenosis of a right M2 superior division branch MRI negative for stroke ASA, Statin neurology consult monitor BP readings and adjust meds accordingly Rest of evaluations by PA note. Time Spent With Patient Time: Total time managing care of this patient today ____ minutes.
--- NOTE | 2022-10-11 18:26 | PHA.MEDREC ---
Pharmacy Consult ? Medication Reconciliation Pharmacy has completed the medication reconciliation. Spoke to patient to confirm meds.
[2022-10-11] MEDS: Atorvastatin Calcium 40 MG TABLET PO (19:03)
[2022-10-11] MEDS: Enoxaparin Sodium 40 MG/0.4 ML SYRINGE SUBCUT (19:03)
--- NOTE | 2022-10-11 19:08 | PC.NURSE ---
patient a&ox3, pt states her LUE and left face feels pins/needles which she has had this sensation since she arrived, manager monitoring sinus rabia, vss, pt medicated per order, call richards within reach, will continue to monitor.
--- NOTE | 2022-10-11 20:31 | PC.NURSE ---
gave report to RN on IMC
--- NOTE | 2022-10-11 20:32 | PC.NURSE ---
transport called at 1957
--- NOTE | 2022-10-11 20:53 | PC.NURSE ---
pt alert, oriented. no pain reported. urine sent to lab. transport here
[2022-10-11 21:08] LABS: Appearance Urine Clear; Color Urine Yellow; Glucose Urine UA Negative (Negative); Leukocyte Esterase Urine Negative (Negative); Nitrite Urine Negative (Negative); Specific Gravity - Urine 1.015 (1.005-1.025); Urine Blood Negative (Negative); Urine Ketones Negative (Negative); Urine Protein Negative (Neg-Trace)
[2022-10-11 21:28] VITALS: BP 166/78; PULSE 60; RESP 18; TEMP 36.1; O2SAT 98
[2022-10-12] VITALS: BP 117/65; PULSE 54; RESP 18; TEMP 36.1; O2SAT 95
[2022-10-12] MEDS: 0.9 % Sodium Chloride Flush 3 ML SYRINGE IVFLUSH ×4 (00:38→21:21)
[2022-10-12 04:00] VITALS: BP 131/69; PULSE 52; RESP 20; TEMP 36.3; O2SAT 94
[2022-10-12 07:50] VITALS: BP 114/57; PULSE 60; RESP 16; TEMP 36.2; O2SAT 93
[2022-10-12 08:02] LABS: Cholesterol 244 mg/dL; HDL Cholesterol 45 mg/dL; LDL Cholesterol Calculated 160 mg/dl; Triglycerides 197 mg/dL
--- NOTE | 2022-10-12 08:31 | MHC.CM.PN ---
CM met with Patient at bedside and addressed LOUIE with her, providing her with the original and placing a copy on the chart. 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 Home self care is the goal and CM has initiated and will follow for dc planning. Patient has received [facility] vax x2 and her PCP is Dr. Richard Ferris.
[2022-10-12] MEDS: Atorvastatin Calcium 40 MG TABLET PO (08:38)
[2022-10-12] MEDS: Aspirin Enteric Coated 81 MG TABLET.DR PO (08:38)
[2022-10-12] MEDS: hydroCHLOROthiazide 25 MG TABLET PO (09:56)
[2022-10-12] MEDS: amLODIPine Besylate 5 MG TABLET PO (09:56)
[2022-10-12] MEDS: lisinopriL 20 MG TABLET PO ×2 (09:56→21:20)
--- NOTE | 2022-10-12 11:04 | P.CNNE_ITS ---
History of Present Illness Data of Consult Service Date: 10/12/22 Primary Care Provider: Richard Ferris MD [facility] Reason for consult: Tingling and numbness 57 years old woman with longstanding history of very uncontrolled hypertension was in hospital with left-sided numbness and tingling. I have seen her with same complaints in January of 2022 with similar very uncontrolled hypertension. At that time an MRI of brain did not reveal any clear thalamic lesion that I was expecting. Her recent MRI reveals a faint right lateral thalamic hyper intensity on FLAIR suggestive of ischemia. Otherwise mild chronic microvascular ischemic changes were noted typically associated with hypertension. She said that she developed left face arm trunk and leg numbness instantaneously and that lasted for couple of hours but she was still complaining of some tingling and numbness. Her CTA of brain revealed a branch right M2 stenosis. Review of Systems Review of Systems: No recent cold or flu-like illness PMFSH Social History Social History Alcohol intake: current Alcohol intake frequency: holidays/special occasions only Patient Tobacco Use Status: Never used Tobacco Smoked in Last 30 Days: No Use of substances other than those prescribed or required for medical reasons: No Advance Directives: No Advance Directives Information Provided: No service: No Current occupational status: employed Meds Allergies Allergy/AdvReac Type Severity Reaction Status Date / Time No Known Allergies Allergy Mild NONE Verified 09/11/21 17:10 Active Medications: Current Medications Acetaminophen (Acetaminophen 325 Mg Tablet) 650 mg PO Q6H PRN PRN Reason: Pain, Mild (Pain Scale 1-3) Amlodipine Besylate (Amlodipine Besylate 5 Mg Tablet) 5 mg PO DAILY [facility]; Protocol Last Admin: 10/12/22 09:56 Dose: 5 mg Aspirin (Aspirin Enteric Coated 81 Mg Tablet.) 81 mg PO DAILY [facility] Last Admin: 10/12/22 08:38 Dose: 81 mg Atorvastatin Calcium (Atorvastatin Calcium 40 Mg Tablet) 40 mg PO DAILY [facility] Last Admin: 10/12/22 08:38 Dose: 40 mg Docusate Sodium (Docusate Sodium 100 Mg Capsule) 100 mg PO DAILY PRN PRN Reason: Constipation Enoxaparin Sodium (Enoxaparin Sodium 40 Mg/0.4 Ml Syringe) 40 mg SUBCUT Q24H [facility] Last Admin: 10/11/22 19:03 Dose: 40 mg Hydrochlorothiazide (Hydrochlorothiazide 25 Mg Tablet) 25 mg PO DAILY [facility]; Protocol Last Admin: 10/12/22 09:56 Dose: 25 mg Lisinopril (Lisinopril 20 Mg Tablet) 20 mg PO BID [facility]; Protocol Last Admin: 10/12/22 09:56 Dose: 20 mg Ondansetron HCl (Ondansetron Hcl 4 Mg/2 Ml Vial) 4 mg IVPUSH Q8H PRN PRN Reason: Nausea and Vomiting Pharmacy Consult (Consult Rx Perform Med Rec) 1 each MISCELLANE ONCE PRN PRN Reason: Consult order Sodium Chloride (0.9 % Sodium Chloride Flush 3 Ml Syringe) 3 ml IVFLUSH QSHIFT [facility] Last Admin: 10/12/22 08:39 Dose: 3 ml Home Medications Medication Instructions Recorded Confirmed Last Taken Type acetaminophen 500 mg tablet 1,000 mg PO Q6H PRN Pain 10/11/22 10/11/22 Unknown History amlodipine 5 mg tablet 5 mg PO DAILY 10/11/22 10/11/22 10/11/22 History lisinopril 20 mg tablet 20 mg PO BID 10/11/22 10/11/22 10/11/22 History Physical Exam Vital Signs: Vital Signs: Last Vital Signs Temp 97.2 F 10/12/22 07:50 Pulse 60 10/12/22 07:50 Resp 16 10/12/22 07:50 BP 114/57 L 10/12/22 07:50 Pulse Ox 93 10/12/22 07:50 O2 Del Method Room Air 10/12/22 07:50 BMI result Body Mass Index 36.8 Neuro: Other: She is alert and awake with normal spontaneity of speech fluency comprehension and anxious affect. Face is symmetrical. There is no focal arm or leg weakness. Visual sousa are full. Results Labs 10/11/22 15:47 10/11/22 15:47 Labs: Short CBC 10/11/22 Range/Units 15:47 WBC 7.0 (4.8-10.8) X10*3/uL Hgb 15.2 (12.0-16.0) g/dl Hct 42.7 (37.0-47.0) % Plt Count 273 (160-400) X10*3/uL BMP 10/11/22 15:47 Sodium 139 Potassium 3.5 D Chloride 103 Carbon Dioxide 24 BUN 18 H Creatinine 0.78 Calcium 9.3 D Liver Function 10/11/22 Range/Units 15:47 Total Bilirubin 0.6 (0.0-1.0) mg/dL Direct Bilirubin 0.2 (0.0-0.5) mg/dL AST 19 (5-31) U/L ALT 23 (0-31) U/L Alkaline Phosphatase 74 (39-117) U/L Albumin 4.4 (3.5-5.0) g/dL Urine 10/11/22 Range/Units 20:51 Urine Color Yellow Urine Appearance Clear Urine pH 7.0 (5.0-9.0) Ur Specific [place] 1.015 (1.005-1.025) Urine Protein Negative (Neg-Trace) mg/dL Urine Glucose (UA) Negative (Negative) mg/dL Noncontrast MRI of brain revealed mild chronic microvascular ischemic changes including 1 right lateral thalamic ischemic lesion. Right M2 branch stenosis was noted. 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 She has been complaining of left-sided tingling and numbness for more than a year. Previous MRI of brain did not reveal any thalamic lesion but this MRI of brain revealed is a right lateral thalamic small is ischemic lesion, which probably is the cause of her symptoms. This type of symptomatology from a thalamic lesion is difficult to treat and mostly does not respond to medicines. Reassurance and education is needed. Main issue is very uncontrolled hypertension which she needed to put more attention to. As far as intracranial middle cerebral artery stenosis is concerned, it would be treated medically with blood pressure control, anti-platelet agent and statins. I recommend trying gabapentin 100-300 mg 2 to 3 times a day as needed for tingling and numbness but it is better to avoid taking a medicine for that. (2) Cerebral microvascular disease: Status: Acute (3) Uncontrolled hypertension: Status: Acute (4) Intracranial atherosclerosis: Status: Acute Time Spent With Patient Time: Total time managing care of this patient today ____ minutes. Procedures Date of Service Date of Service: 10/12/22
[2022-10-12 11:35] VITALS: BP 135/60; PULSE 60; RESP 20; TEMP 36.5; O2SAT 93
--- NOTE | 2022-10-12 12:53 | P.PNIM_ITS ---
Subjective Subjective Date of Service: 10/12/22 Interval History: the patient was seen and evaluated this morning Laying in bed, feels comfortable Denies any fever, chills or shortness of breath still having the abnormal feeling in her face and LUE with tingling and numbness No reported other overnight events. Systemic review: No fever, chills or weakness No chest pain, palpitation No shortness of breath or coughing No abdominal pain, nausea or vomiting No urinary symptoms No reported rash Physical Exam Vital Signs: Vital Signs: Last Vital Signs Temp 97.7 F 10/12/22 11:35 Pulse 60 10/12/22 11:35 Resp 20 10/12/22 11:35 BP 135/60 10/12/22 11:35 Pulse Ox 93 10/12/22 11:35 O2 Del Method Room Air 10/12/22 11:35 BMI result Body Mass Index 36.8 Const: Other: Constitutional : Awake, interactive, not in distress Neck : Normal inspection, Supple Cardiovascular : RRR, no JVP, no lower extremity edema Respiratory : good bilateral air entry, no crackles, wheezes or rhonchi Gastrointestinal: soft, lax, Normal bowel sounds, Non tender Skin : Warm, Dry Neurological : Alert & oriented x3, No focal deficit , fine touch abnormality LUE and left side of her face, symmetrical face though with normal speech fluency. Objective Data Active Medications Acetaminophen (Acetaminophen 325 Mg Tablet) 650 mg PO Q6H PRN PRN Reason: Pain, Mild (Pain Scale 1-3) Amlodipine Besylate (Amlodipine Besylate 5 Mg Tablet) 5 mg PO DAILY [facility]; Protocol Last Admin: 10/12/22 09:56 Dose: 5 mg Documented By: SUNDAY Aspirin (Aspirin Enteric Coated 81 Mg Tablet.) 81 mg PO DAILY [facility] Last Admin: 10/12/22 08:38 Dose: 81 mg Documented By: SUNDAY Atorvastatin Calcium (Atorvastatin Calcium 40 Mg Tablet) 40 mg PO DAILY [facility] Last Admin: 10/12/22 08:38 Dose: 40 mg Documented By: SUNDAY Docusate Sodium (Docusate Sodium 100 Mg Capsule) 100 mg PO DAILY PRN PRN Reason: Constipation Enoxaparin Sodium (Enoxaparin Sodium 40 Mg/0.4 Ml Syringe) 40 mg SUBCUT Q24H [facility] Last Admin: 10/11/22 19:03 Dose: 40 mg Documented By: SERA Hydrochlorothiazide (Hydrochlorothiazide 25 Mg Tablet) 25 mg PO DAILY [facility]; Protocol Last Admin: 10/12/22 09:56 Dose: 25 mg Documented By: SUNDAY Lisinopril (Lisinopril 20 Mg Tablet) 20 mg PO BID [facility]; Protocol Last Admin: 10/12/22 09:56 Dose: 20 mg Documented By: SUNDAY Ondansetron HCl (Ondansetron Hcl 4 Mg/2 Ml Vial) 4 mg IVPUSH Q8H PRN PRN Reason: Nausea and Vomiting Pharmacy Consult (Consult Rx Perform Med Rec) 1 each MISCELLANE ONCE PRN PRN Reason: Consult order Sodium Chloride (0.9 % Sodium Chloride Flush 3 Ml Syringe) 3 ml IVFLUSH QSHIFT [facility] Last Admin: 10/12/22 08:39 Dose: 3 ml Documented By: SUNDAY Labs 10/11/22 15:47 10/11/22 15:47 Labs: Laboratory Results - last 24 hr 10/11/22 10/11/22 10/11/22 14:51 14:54 15:47 MCV 86.8 MCH 30.9 MCHC 35.6 H RDW 12.4 Plt Count 273 MPV 9.9 Immature Gran % (Auto) 0.1 Neut % (Auto) 65.6 Lymph % (Auto) 26.4 [place] % (Auto) 5.8 Eos % (Auto) 1.7 Baso % (Auto) 0.4 Lymph # (Auto) 1.9 [place] # (Auto) 0.4 Eos # (Auto) 0.1 Baso # (Auto) 0.0 Abs Immat Gran (auto) 0.01 Absolute Neuts (auto) 4.6 Absolute Nucleated RBC 0.000 Nucleated RBC % (auto) 0.0 PT Whole Blood PT 12.4 INR Whole Blood INR 1.0 APTT Anion Gap Estim Creat Clear Calc Estimated GFR POC Glucose 153 H Random Glucose Calcium Magnesium Total Bilirubin Direct Bilirubin AST ALT Alkaline Phosphatase Troponin I High Sens Total Protein Albumin Triglycerides Cholesterol LDL Cholesterol, Calc HDL Cholesterol Urine Color Urine Appearance Urine pH Ur Specific [place] Urine Protein Urine Glucose (UA) Urine Ketones Urine Blood Urine Nitrite Ur Leukocyte Esterase COVID-19 ([facility]) COVID-19 Clin Com 10/11/22 10/11/2223 15:47 15:47 15:47 MCV MCH MCHC RDW Plt Count MPV Immature Gran % (Auto) Neut % (Auto) Lymph % (Auto) [place] % (Auto) Eos % (Auto) Baso % (Auto) Lymph # (Auto) [place] # (Auto) Eos # (Auto) Baso # (Auto) Abs Immat Gran (auto) Absolute Neuts (auto) Absolute Nucleated RBC Nucleated RBC % (auto) PT 11.5 Whole Blood PT INR 1.0 Whole Blood INR APTT 33.2 Anion Gap 16 Estim Creat Clear Calc 90.2 Estimated GFR > 60 POC Glucose Random Glucose 140 H Calcium 9.3 D Magnesium 1.9 Total Bilirubin 0.6 Direct Bilirubin 0.2 AST 19 ALT 23 Alkaline Phosphatase 74 Troponin I High Sens < 3.5 Total Protein 7.1 Albumin 4.4 Triglycerides Cholesterol LDL Cholesterol, Calc HDL Cholesterol Urine Color Urine Appearance Urine pH Ur Specific [place] Urine Protein Urine Glucose (UA) Urine Ketones Urine Blood Urine Nitrite Ur Leukocyte Esterase COVID-19 ([facility]) COVID-[employer] 10/11/22 10/11/22 10/12/22 15:47 20:51 06:25 MCV MCH MCHC RDW Plt Count MPV Immature Gran % (Auto) Neut % (Auto) Lymph % (Auto) [place] % (Auto) Eos % (Auto) Baso % (Auto) Lymph # (Auto) [place] # (Auto) Eos # (Auto) Baso # (Auto) Abs Immat Gran (auto) Absolute Neuts (auto) Absolute Nucleated RBC Nucleated RBC % (auto) PT Whole Blood PT INR Whole Blood INR APTT Anion Gap Estim Creat Clear Calc Estimated GFR POC Glucose Random Glucose Calcium Magnesium Total Bilirubin Direct Bilirubin AST ALT Alkaline Phosphatase Troponin I High Sens Total Protein Albumin Triglycerides 197 Cholesterol 244 LDL Cholesterol, Calc 160 HDL Cholesterol 45 Urine Color Yellow Urine Appearance Clear Urine pH 7.0 Ur Specific [place] 1.015 Urine Protein Negative Urine Glucose (UA) Negative Urine Ketones Negative Urine Blood Negative Urine Nitrite Negative Ur Leukocyte Esterase Negative COVID-19 ([facility]) Negative COVID-[employer] See Note Assessment and Plan (1) Thalamic pain syndrome: Status: Acute (2) Cerebral microvascular disease: Status: Acute (3) Uncontrolled hypertension: Status: Acute (4) Intracranial atherosclerosis: Status: Acute (5) Numbness and tingling of left side of face: Status: Acute Plan Pt is a 57-year-old female with a PMH significant for primary?HTN who presents to the ED with?left-sided facial and upper extremity numbness and tingling. Pt will be admitted to observation on telemetry for evaluation further workup for possible TIA. Thalamic pain syndrome 2/2 thalamic lesion MRI of brain showed right thalamus small lesion per neurologist CTA head and neck showed short-segment with apparent stenosis of the right M2 superior division branch, with no other significant arterial stenosis or large vessel occlusion. Aspirin 81 mg daily Atorvastatin 40 mg daily Lipid profile showing elevated TG and LDL PT/OT evaluation Neurology consult appreciated stroke education Start low dose Gabapentin telemetry Hard palate mass Incidental finding on MRI: Well-circumscribed lobulated mass arising from the right aspect of the hard palate with resultant osseous remodeling Follow-up outpatient with ENT HTN Continue home meds Full Code DVT Prophylaxis: Lovenox Pt will need overnight hospital stay for completion of eval for acute stroke pending PT\OT and Echo. Time Spent With Patient Time: Total time managing care of this patient today ____ minutes. Quality Stroke Does the patient have a stroke diagnosis?: No VTE Prior VTE?: No VTE Risk Level:: Medical - moderate - high VTE Device Contraindication: Treatment Not Indicated VTE Drug Contraindication: N/A - Med Ordered
[2022-10-12] MEDS: Gabapentin 100 MG CAPSULE PO ×2 (14:43→21:21)
[2022-10-12 15:24] VITALS: BP 122/71; PULSE 58; RESP 18; TEMP 36.4; O2SAT 96
[2022-10-12 20:00] VITALS: BP 114/54; PULSE 58; RESP 18; TEMP 36.8; O2SAT 95
[2022-10-12] MEDS: Enoxaparin Sodium 40 MG/0.4 ML SYRINGE SUBCUT (21:20)
[2022-10-12] MEDS: Acetaminophen 325 MG TABLET 650 MG PO (21:34)
[2022-10-13] VITALS: BP 123/68; PULSE 55; RESP 18; TEMP 36.3; O2SAT 95
--- NOTE | 2022-10-13 | ECG_ITS ---
Test Reason : CP Blood Pressure : / mmHG Vent. Rate : 051 BPM Atrial Rate : 051 BPM P-R Int : 164 ms QRS Dur : 072 ms QT Int : 490 ms P-R-T Axes : 016 -20 -18 degrees QTc Int : 451 ms Sinus bradycardia Minimal voltage criteria for LVH, may be normal variant ( R in aVL ) Inferior infarct , age undetermined Abnormal ECG When compared with ECG of 11-OCT-2022 15:19, Vent. rate has decreased BY 25 BPM Criteria for Anteroseptal infarct are no longer Present T wave inversion now evident in Inferior leads Referred By: Aron Lira Electronically Signed By:ARUN HIGUERA
[2022-10-13 04:00] VITALS: BP 137/73; PULSE 51; RESP 18; TEMP 36.1; O2SAT 94
[2022-10-13 07:54] VITALS: BP 128/78; PULSE 60; RESP 18; TEMP 36.4; O2SAT 98
[2022-10-13] MEDS: 0.9 % Sodium Chloride Flush 3 ML SYRINGE IVFLUSH (08:42)
[2022-10-13] MEDS: amLODIPine Besylate 5 MG TABLET PO (08:42)
[2022-10-13] MEDS: Aspirin Enteric Coated 81 MG TABLET.DR PO (08:43)
[2022-10-13] MEDS: lisinopriL 20 MG TABLET PO (08:43)
[2022-10-13] MEDS: hydroCHLOROthiazide 25 MG TABLET PO (08:43)
[2022-10-13] MEDS: Gabapentin 100 MG CAPSULE PO (08:43)
[2022-10-13] MEDS: Atorvastatin Calcium 40 MG TABLET PO (08:43)
--- NOTE | 2022-10-13 10:22 | MHC.CM.PN ---
pt expected to dc today plan is home no servceis
[2022-10-13 11:30] VITALS: BP 131/60; PULSE 59; RESP 18; TEMP 36.1; O2SAT 95
--- NOTE | 2022-10-13 12:21 | PM.DS ---
DS: Providers Provider Date of Service: 10/13/22 Date of admission: 10/12/22 13:01 Primary care physician: Richard Ferris MD Consults: 10/11/22 18:10 Consult to Neurology Routine Consulting Provider: [facility] Reason for consultation: Left-sided facial and upper extremity numbness DS: Diagnosis Discharge Diagnosis (1) Thalamic pain syndrome: Status: Acute (2) Cerebral microvascular disease: Status: Acute (3) Uncontrolled hypertension: Status: Acute (4) Intracranial atherosclerosis: Status: Acute (5) Numbness and tingling of left side of face: Status: Acute DS: Summary Hospital Course Hospital Course: Admission note HPI Pt is a 57-year-old female with a PMH significant for primary?HTN who presents to the ED with?left-sided facial and upper extremity numbness and tingling. Pt states she has been experiencing numbness and tingling of her left upper extremity, chest, and face for a long time, but it is usually mild. No noted weakness. Has seen her PCP for this who has referred her to Dr. Samaniego in neurology. Has been attributed to HTN. Today, pt was at work when she noted a sudden wave of pins and needles in the same left-side area, but much stronger than usual. Lasted around 15 minutes before it began to mello some. Pt denies any left-sided weakness or that it extended to her abdomen or lower extremities. Denies lightheadedness, dizziness, nausea, vomiting, diaphoresis.? Patient was able to ambulate and never loss consciousness.? Denies fever, chills.? No chest pain/pressure, palpitations.? Denies shortness of breath.? Patient states she still is not back to baseline and feels a residual ?heaviness? and increased pins and needles.? No headache, changes in vision, difficulty speaking, or facial droop. In the ED patient was afebrile and hypertensive up to 201/96. Labs were a unremarkable. CXR showed no acute cardiopulmonary process. CT?of head showed no acute intracranial pathology.? CTA head and neck showed short-segment with apparent stenosis of the right M2 superior division branch, with no other significant arterial stenosis or large vessel occlusion.? Incidental findings include enlarged partially empty sella, scattered dental caries, and cervical spondylolysis with mild to moderate bilateral neural foraminal stenosis.? MRI of brain found no acute intracranial abnormality, no evidence of acute infarction.? Incidental finding:? 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 EKG demonstrated normal sinus rhythm without evidence of ST elevations or depressions. Pt was treated with aspirin 325 mg. Pt will be admitted to observation on telemetry for evaluation further workup for possible TIA. Hospital course Presented with left sided face and arm tingling sensation. MRI of brain showed right thalamus small lesion per neurologist. CTA head and neck showed short-segment with apparent stenosis of the right M2 superior division branch, with no other significant arterial stenosis or large vessel occlusion. Started on Aspirin 81 mg daily Lipid profile showing elevated TG and LDL, started on Atorvastatin 40. PT/OT evaluation did not feel she needs any therapy. 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 blood pressure was well controlled on her meds during the hospital stay after initial high readings at time of admission. started on Gabapentin for symptomatic management. Noted to have Hard palate mass as Incidental finding on MRI:?Well-circumscribed lobulated mass arising from the right aspect of the hard palate with resultant osseous remodeling Follow-up outpatient with ENT Continue Gabapentin as prescribed Start Aspirin and Atorvastatin Monitor blood pressure at home and report 1 week readings to your PCP for further adjustment of medications Follow up with ENT as outpatient for evaluation of hard palate lesion Time Spent with Patient Time attestation: Total time managing care of this patient today ____ minutes. Discharge coordination time: Greater than 30 minutes Quality: Safe Use of Opioids Does Pt have an Active Cancer Diagnosis on the Problem List?: No Quality: Stroke Does the patient have a stroke diagnosis?: No Physical Exam Vital Signs: Vital Signs: Last Vital Signs Temp 97 F 10/13/22 11:30 Pulse 59 10/13/22 11:30 Resp 18 10/13/22 11:30 BP 131/60 10/13/22 11:30 Pulse Ox 95 10/13/22 11:30 O2 Del Method Room Air 10/13/22 11:30 BMI result Body Mass Index 36.8 Const: Other: Constitutional : Awake, interactive, not in distress Neck : Normal inspection, Supple Cardiovascular : RRR, no JVP, no lower extremity edema Respiratory : good bilateral air entry, no crackles, wheezes or rhonchi Gastrointestinal: soft, lax, Normal bowel sounds, Non tender Skin : Warm, Dry Neurological : Alert & oriented x3, No focal deficit , symmetrical face with normal speech fluency. DS: Data Imaging MRI - head: Radiologist's impression: ITS Impressions Head CT 10/11/22 14:53 IMPRESSION: No acute intracranial pathology. This critical result was discussed with Dr. Andrade at 3:05 pm on 10/11/2022. It was ascertained that the content and urgency of the report was understood at the time of direct communication. Head/Neck CTA 10/11/22 14:58 IMPRESSION: 1. Incidental enlarged partially empty sella, otherwise noncontrast head CT findings discussed separately. 2. Short segment apparent severe stenosis of a right M2 superior division branch, noting adjacent venous contamination limits assessment. 3. No other significant arterial stenosis or large vessel occlusion in the head or neck. 4. Scattered dental caries; correlate with dental examination. 5. Cervical spondylosis with mild to moderate bilateral C5-C6 and severe left C6-C7 neural foraminal stenosis. No definite high-grade spinal canal stenosis, noting MRI would be more sensitive modality. Impression [address] Andrade on 10/11/2022 at 15:34. Chest X-Ray 10/11/22 15:16 IMPRESSION: Unremarkable examination. Brain MRI 10/11/22 16:34 IMPRESSION: No acute intracranial abnormality. Specifically, no evidence of acute infarction. Incidentally noted well-circumscribed lobulated mass arising from the right aspect of the hard palate with resultant osseous remodeling. 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 Recommend ENT evaluation. Discharge Plan Discharge Anticipated Discharge Date/Time: 10/13/22 12:15 Patient Disposition: Home, Self-Care Discharge Diagnosis: Tingling sensation Referrals: Richard Ferris MD [Primary Care Provider] - 1 Week Discharge Medications: New atorvastatin 40 mg Tablet 40 mg PO DAILY Qty: 30 0RF aspirin 81 mg Tablet,Delayed Release (Dr/Ec) 81 mg PO DAILY Qty: 30 0RF gabapentin 100 mg Capsule 100 mg PO BID Qty: 60 0RF Continued hydrochlorothiazide 25 mg tablet 25 mg PO DAILY 30 Days Qty: 30 0RF amlodipine 5 mg tablet 5 mg PO DAILY acetaminophen 500 mg Tablet 1,000 mg PO Q6H PRN (Reason: Pain) lisinopril 20 mg tablet 20 mg PO BID Discharge Orders: Discharge Order (Routine); Ordered 10/13/22 Ordered By: Aron Lira Diet: Low salt diet Activity on Discharge: As tolerated Stand Alone Forms: Patient Portal Discharge page Care Plan Goals: Read below Health Concerns: Read below Plan of Treatment: Read below Assessment: You were admitted to the hospital for evaluation of left sided face and arm tingling sensation. evaluated by neurologist as your MRI showed a small thalamus lesion likely related to high blood pressure. started on secondary prevention with Aspirin and Statin. Gabapentin to help with symptoms. Continue Gabapentin as prescribed Start Aspirin and Atorvastatin Monitor your blood pressure at home and report 1 week readings to your PCP for further adjustment of medications Follow up with ENT as outpatient for evaluation of hard palate lesion
== END 2022-10-13 15:00 | disposition home or self-care (01) | DRG 58 ==
LOC: HO.ED 16:23 → HO.EDOVER 18:19 → HO.IMC 19:30
PROVIDERS: Physician Assistant; Admitting Provider Student in an Organized Health Care Education/Training Program; Emergency Provider Emergency Medicine; PCP Internal Medicine; Visit Provider Student in an Organized Health Care Education/Training Program
DX: G93.89 Other specified disorders of brain (principal); I66.01 Occlusion and stenosis of right middle cerebral artery; I67.2 Cerebral atherosclerosis; G89.0 Central pain syndrome; R20.0 Anesthesia of skin; I10 Essential (primary) hypertension; M27.8 Other specified diseases of jaws; Z20.822 Contact with and (suspected) exposure to COVID-19; Z79.82 Long term (current) use of aspirin; Z79.899 Other long term (current) drug therapy
CPT/HCPCS: 36415; 70450; 70496; 70498; 70551; 71045; 80048; 80061; 80076; 81003; 82947; 83735; 84484; 85025; 85610; 85730; 87635; 93005; 97161; 97165; 99222; 99285; J1650; Q9967

== ENCOUNTER 2022-11-07 07:56 | Emergency (ER) | payer OTHER, SELFPAY ==
--- NOTE | ~2022-11-07 | CT_ITS ---
EXAMINATION: CT HEAD WITHOUT CONTRAST CLINICAL INFORMATION: Dizziness COMPARISON: 10/11/2022 TECHNIQUE: Contiguous axial imaging was performed from the skull base to vertex without intravenous contrast. This CT examination was performed using dose optimization techniques as appropriate, variously including the following: * Automated exposure control * Adjustment of mA and/or kV according to patient size (this includes techniques or standardized protocols for targeted exams where dose is matched to indication/reason for exam; i.e. extremities or head) Use of iterative reconstruction technique DLP: 657 mGy-cm. FINDINGS: There is no evidence of acute intracranial hemorrhage or territorial infarction. No abnormal mass effect or midline shift is seen. [place] to white matter differentiation is well preserved. No extra-axial fluid collections are identified. No hydrocephalus. No significant volume loss. There is no abnormal attenuation within the brain parenchyma. The osseous structures and soft tissues are normal. Small mucus retention cyst in the right maxillary sinus. The mastoid air cells and visualized portions of the paranasal sinuses are otherwise well aerated. CT/CT head/brain wo IV con IMPRESSION: No acute intracranial pathology.
--- NOTE | ~2022-11-07 | XR_ITS ---
EXAMINATION: XR CHEST CLINICAL INFORMATION: Question pneumonia COMPARISON: 10/11/2022 TECHNIQUE: Frontal view of the chest was obtained. FINDINGS: The lungs are well expanded. There is no focal consolidation, edema, or effusion. No pneumothorax. The cardiomediastinal silhouette is within normal limits. No acute osseous abnormality. XR/XR chest 1V IMPRESSION: No acute pulmonary disease.
[2022-11-07 08:05] VITALS: BP 149/84; PULSE 68; RESP 17; TEMP 36.7; O2SAT 93; BMI 35.6
[2022-11-07 08:09] VITALS: BP 156/104; PULSE 80; O2SAT 97
[2022-11-07 08:47] LABS: COVID-19 Test Negative (Negative); IDNOW Serial# 6674DD1D
[2022-11-07 08:59] LABS: IDNOW Serial# 9DB6401D; Influenza A Negative (Negative); Influenza B2 Negative (Negative)
--- NOTE | 2022-11-07 09:05 | ECG_ITS ---
Test Reason : DIZZINES Blood Pressure : / mmHG Vent. Rate : 058 BPM Atrial Rate : 058 BPM P-R Int : 166 ms QRS Dur : 082 ms QT Int : 446 ms P-R-T Axes : 000 -19 -13 degrees QTc Int : 437 ms Sinus bradycardia Minimal voltage criteria for LVH, may be normal variant ( R in aVL ) Septal infarct , age undetermined Abnormal ECG When compared with ECG of 13-OCT-2022 03:48, Septal infarct is now Present No significant change was found Referred By: Joel Sandhu Electronically Signed By:ARUN HIGUERA
--- NOTE | 2022-11-07 09:07 | ED_ITS ---
HPI - General Adult General Chief complaint: Headache Stated complaint: Dizziness since last PM per EMS Time Seen by Provider: 11/07/22 08:22 Source: patient Mode of arrival: ambulatory Limitations: no limitations History of Present Illness HPI narrative: 57-year-old female with history of hypertension presents to the ED for multiple complaints. Patient's 1st complaint is sore throat, cough, and chills earlier t his week feeling malaise with not much appetite. Patient then states last night she for hot started having headache which is resolved, but then started to have dizziness while in the bed. Patient described dizziness as she is moving/spinning around when she changed position of her head in the bed. Patient also states ringing in the left ear. Patient denies any head trauma, chest pain, rash, shortness of breath, abdominal pain, dysuria, hematuria, or recorded temperature. Patient presently does not have any headache. She denies ever having neck stiffness. Related Data Home Medications Medication Instructions Recorded Confirmed acetaminophen 500 mg tablet 1,000 mg PO Q6H PRN Pain 10/11/22 10/11/22 amlodipine 5 mg tablet 5 mg PO DAILY 10/11/22 10/11/22 lisinopril 20 mg tablet 20 mg PO BID 10/11/22 10/11/22 Previous Rx's Medication Instructions Recorded hydrochlorothiazide 25 mg tablet 25 mg PO DAILY 30 days #30 tabs 09/11/21 aspirin 81 mg tablet,delayed 81 mg PO DAILY #30 tabs 10/13/22 release atorvastatin 40 mg tablet 40 mg PO DAILY #30 tabs 10/13/22 gabapentin 100 mg capsule 100 mg PO BID #60 caps 10/13/22 amoxicillin 875 mg-potassium 1 tab PO Q12H 10 days #20 tabs 11/07/22 clavulanate 125 mg tablet meclizine 25 mg tablet 25 mg PO QID PRN motion sickness 7 11/07/22 days #28 tabs Allergies Allergy/AdvReac Type Severity Reaction Status Date / Time No Known Allergies Allergy Mild NONE Verified 11/07/22 08:07 Review of Systems Review of Systems: cough, chills, sore throat, malaise. resolved headache. Dizziness described as s he is spinning and ringing in her left ear. Yes all other systems are reviewed and are negative PMFSH Past Medical History Medical History (Updated 11/07/22 @ 13:33 by MARQUITA Escobar) Cerebral microvascular disease Intracranial atherosclerosis Numbness and tingling of left side of face Thalamic pain syndrome Uncontrolled hypertension Social History Social History Alcohol intake: current Alcohol intake frequency: holidays/special occasions only Patient Tobacco Use Status: Never used Tobacco Advance Directives: No Advance Directives Information Provided: Yes service: No Current occupational status: employed Physical Exam ED Vital Signs: Vital Signs - 24 hr 11/07/22 08:05 11/07/22 12:09 Temperature 98.0 F 98.6 F Pulse Rate 68 61 Respiratory Rate 17 17 Blood Pressure 149/84 H 135/75 Pulse Oximetry 93 95 Oxygen Delivery Method Room Air Room Air BMI result Body Mass Index 35.6 Const General: cooperative, healthy appearing, comfortable, no acute distress, well developed, alert, awake and Physically active [facility] Head: Yes normal to inspection, Yes No palpable skull fracture present, Yes normocephalic, Yes atraumatic and No abrasion Ears: hearing grossly normal bilaterally, external ears normal, TM normal on the right and TM abnormal erythematous on the left Throat: Yes posterior oropharynx normal, Yes tonsils normal and Yes uvula midline Eyes Other: positive for horizontal nystagmus and positive [place] tests General: appearance normal, both eyes and all related structures Neck Neck: Yes normal visual inspection, Yes full ROM, Yes no lymphadenopathy, Yes no meningeal signs, Yes trachea midline, Yes supple, No anterior neck swelling, No positive Brudzinski's sign, No positive Kernig's sign and No tender Chest Chest palpation & inspection: normal inspection of the chest and normal palpation of entire chest wall Resp Effort & Inspection: normal respiratory effort and able to speak in complete sentences Auscultation: clear to auscultation bilaterally Cardio Jugular venous distension: no JVD Heart sounds: S1 normal heart sound present and S2 normal heart sound present GI Inspection: Yes normal to inspection and No abdominal wall ecchymosis Palpation (GI): Soft to palpation, not firm, nontender, no guarding and not rigid General: No CVA tenderness and Yes no CVA tenderness Back/Spine/Pelvis Back: no CVA tenderness, No CVA tenderness and No back tenderness Skin General skin exam: no rashes or lesions noted and elasticity normal Neuro Other: Negative facial droop. Negative slurred speech. Negative pronator drift. All extremities equal strength 5+. [id number] rapid hand movement intact. General: no meningeal signs Extrem Other: Lower extremities negative for swelling, pitting edema, calf tenderness. General: Yes normal to inspection and Yes full ROM Psych Appearance: grossly normal, well kempt and not disheveled Course Course Course Narrative: Patient is not toxic appearing but does describe sensation of herself spinning when she changed position of her head. Negative for signs of meningitis. Negative for signs of encephalitis. Will do labs make sure patient is not dehydrated. History physical exam sound like vertigo but due to age and family history of sisters having heart attack in their 50s will cardiac evaluation. COVID influenza and strep ordered. Reevaluation(s) Reevaluation #1: Patient feels better after receiving fluids and meclizine. Patient's EKG negative STEMI. Both troponins negative. Head CT normal. Not suspecting posterior cerebellar infarct. Symptoms sound like vertigo. Physical exam indicate mild left otitis media. Patient informed to follow-up with ENT. NIH score 0. Time: 13:22 Medications Administered Discontinued Medications Generic Name Dose Route Start Last Admin Trade Name Freq PRN Reason Stop Dose Admin Sodium Chloride 1,000 mls @ 999 mls/hr 11/07/22 09:01 11/07/22 11:13 Ns IV 11/07/22 10:01 Infused .Q1H1M STA Infusion Meclizine HCl 50 mg 11/07/22 09:01 11/07/22 09:29 Meclizine Hcl 25 Mg Tablet PO 11/07/22 09:02 50 mg ONCE ONE Administration Medical Decision Making Medical Decision Making [facility] Narrative: 57-year-old female with viral-like syndrome and vertigo symptoms improved after receiving meclizine and fluids. Cardiac workup negative. Head CT scan normal. Negative for signs of stroke. Normal gait and no longer feel dizzy. Labs normal. Not suspecting meningitis. EKG negative STEMI. Patient follow-up with primary care provider told to formed follow-up with ENT. Differential Diagnosis Differential Diagnoses: The differential diagnosis associated with the presentation includes (vertigo, [place], pneumonia, stroke, otitis media, COvid, Strep, Influenza, tinnitus) Admission/Observation Consideration of admission/observation: Escalation of care including admission/observation considered Lab Data [facility] Lab Attestation statement: I reviewed the patient's lab results. 11/07/22 09:24 11/07/22 09:19 Labs: Lab Results 11/07/22 11/07/22 11/07/22 Range/Units 08:11 08:11 09:19 WBC (4.8-10.8) X10*3/uL RBC (4.20-5.50) X10*6/uL Hgb (12.0-16.0) g/dl Hct (37.0-47.0) % MCV (80.0-98.0) fL MCH (27.0-33.0) pg MCHC (31.0-35.0) g/dl RDW (11.0-16.0) % Plt Count (160-400) X10*3/uL MPV (9.4-12.3) fL Immature Gran % (Auto) (0.0-0.4) % Neut % (Auto) (45-73) % Lymph % (Auto) (20-40) % [place] % (Auto) (2-11) % Eos % (Auto) (0-4) % Baso % (Auto) (0-2) % Lymph # (Auto) (1.2-4.9) X10*3/uL [place] # (Auto) (0.1-1.2) X10*3/uL Eos # (Auto) (0.0-0.4) X10*3/uL Baso # (Auto) (0.0-0.2) X10*3/uL Abs Immat Gran (auto) (0.00-0.03) X10*3/uL Absolute Neuts (auto) (2.0-8.3) x10*3/uL Absolute Nucleated RBC (0.0-0.012) X10*3/uL Nucleated RBC % (auto) (0.0-0.2) /100WBC PT (10.0-13.1) SEC INR (0.9-1.1) APTT (26.0-36.4) SEC Sodium 138 (135-145) mmol/L Potassium 3.9 (3.3-5.1) mmol/L Chloride 103 (96-108) mmol/L Carbon Dioxide 26 (22-29) mmol/L Anion Gap 13 (12-20) BUN 14 (9-16) mg/dL Creatinine 0.77 (0.5-1.4) mg/dL Estim Creat Clear Calc 89.7 Estimated GFR > 60 Random Glucose 235 H (60-115) mg/dL Calcium 9.1 (8.4-10.2) mg/dL Total Bilirubin 0.8 (0.0-1.0) mg/dL AST 25 (5-31) U/L ALT 35 H (0-31) U/L Alkaline Phosphatase 81 (39-117) U/L Troponin I High Sens (<3.5-17.0) ng/L Total Protein 7.1 (6.5-8.0) g/dL Albumin 4.4 (3.5-5.0) g/dL COVID-19 (FARIDA) Negative (Negative) COVID-19 Clin Com See Note Influenza Type A (AMANDA) Negative (Negative) Influenza Type B (AMANDA) Negative (Negative) Influenza A & B Note See Note S. pyogenes GrpA AMANDA (Negative) 11/07/22 11/07/22 11/07/22 Range/Units 09:19 09:19 09:24 WBC 4.7 L (4.8-10.8) X10*3/uL RBC 4.84 (4.20-5.50) X10*6/uL Hgb 14.7 (12.0-16.0) g/dl Hct 42.0 (37.0-47.0) % MCV 86.8 (80.0-98.0) fL MCH 30.4 (27.0-33.0) pg MCHC 35.0 (31.0-35.0) g/dl RDW 12.1 (11.0-16.0) % Plt Count 221 (160-400) X10*3/uL MPV 10.0 (9.4-12.3) fL Immature Gran % (Auto) 0.2 (0.0-0.4) % Neut % (Auto) 74.3 H (45-73) % Lymph % (Auto) 19.4 L (20-40) % [place] % (Auto) 5.7 (2-11) % Eos % (Auto) 0.2 (0-4) % Baso % (Auto) 0.2 (0-2) % Lymph # (Auto) 0.9 L (1.2-4.9) X10*3/uL [place] # (Auto) 0.3 (0.1-1.2) X10*3/uL Eos # (Auto) 0.0 (0.0-0.4) X10*3/uL Baso # (Auto) 0.0 (0.0-0.2) X10*3/uL Abs Immat Gran (auto) 0.01 (0.00-0.03) X10*3/uL Absolute Neuts (auto) 3.5 (2.0-8.3) x10*3/uL Absolute Nucleated RBC 0.000 (0.0-0.012) X10*3/uL Nucleated RBC % (auto) 0.0 (0.0-0.2) /100WBC PT (10.0-13.1) SEC INR (0.9-1.1) APTT (26.0-36.4) SEC Sodium (135-145) mmol/L Potassium (3.3-5.1) mmol/L Chloride (96-108) mmol/L Carbon Dioxide (22-29) mmol/L Anion Gap (12-20) BUN (9-16) mg/dL Creatinine (0.5-1.4) mg/dL Estim Creat Clear Calc Estimated GFR Random Glucose (60-115) mg/dL Calcium (8.4-10.2) mg/dL Total Bilirubin (0.0-1.0) mg/dL AST (5-31) U/L ALT (0-31) U/L Alkaline Phosphatase (39-117) U/L Troponin I High Sens < 2.7 (<3.5-17.0) ng/L Total Protein (6.5-8.0) g/dL Albumin (3.5-5.0) g/dL COVID-19 (FARIDA) (Negative) COVID-19 Clin Com Influenza Type A (AMANDA) (Negative) Influenza Type B (AMANDA) (Negative) Influenza A & B Note S. pyogenes GrpA AMANDA Negative (Negative) 11/07/22 11/07/22 Range/Units 09:24 12:14 WBC (4.8-10.8) X10*3/uL RBC (4.20-5.50) X10*6/uL Hgb (12.0-16.0) g/dl Hct (37.0-47.0) % MCV (80.0-98.0) fL MCH (27.0-33.0) pg MCHC (31.0-35.0) g/dl RDW (11.0-16.0) % Plt Count (160-400) X10*3/uL MPV (9.4-12.3) fL Immature Gran % (Auto) (0.0-0.4) % Neut % (Auto) (45-73) % Lymph % (Auto) (20-40) % [place] % (Auto) (2-11) % Eos % (Auto) (0-4) % Baso % (Auto) (0-2) % Lymph # (Auto) (1.2-4.9) X10*3/uL [place] # (Auto) (0.1-1.2) X10*3/uL Eos # (Auto) (0.0-0.4) X10*3/uL Baso # (Auto) (0.0-0.2) X10*3/uL Abs Immat Gran (auto) (0.00-0.03) X10*3/uL Absolute Neuts (auto) (2.0-8.3) x10*3/uL Absolute Nucleated RBC (0.0-0.012) X10*3/uL Nucleated RBC % (auto) (0.0-0.2) /100WBC PT 13.6 H (10.0-13.1) SEC INR 1.2 H (0.9-1.1) APTT 30.1 (26.0-36.4) SEC Sodium (135-145) mmol/L Potassium (3.3-5.1) mmol/L Chloride (96-108) mmol/L Carbon Dioxide (22-29) mmol/L Anion Gap (12-20) BUN (9-16) mg/dL Creatinine (0.5-1.4) mg/dL Estim Creat Clear Calc Estimated GFR Random Glucose (60-115) mg/dL Calcium (8.4-10.2) mg/dL Total Bilirubin (0.0-1.0) mg/dL AST (5-31) U/L ALT (0-31) U/L Alkaline Phosphatase (39-117) U/L Troponin I High Sens 2.7 (<3.5-17.0) ng/L Total Protein (6.5-8.0) g/dL Albumin (3.5-5.0) g/dL COVID-19 (FARIDA) (Negative) COVID-19 Clin Com Influenza Type A (AMANDA) (Negative) Influenza Type B (AMANDA) (Negative) Influenza A & B Note S. pyogenes GrpA AMANDA (Negative) Independent Interpretation I performed an independent interpretation of an: EKG (Sinus bradycardia. Ventricular rate 58. Peer interval 166. QRS 82. QTC 437. Negative STEMI ) Prescription Management I considered prescription management with: Other (meclizine) Discharge Plan Discharge Clinical Impression: Otitis media, Vertigo, Acute viral syndrome Patient Disposition: Home, Self-Care Instructions: Vertigo (DC), Ear Infection (ED), Viral Syndrome (ED), Tinnitus (ED) Additional Instructions: Return to the ED immediately for worsening dizziness, facial droop, paralysis of extremities, loss of vision, ear pain, headache, chest pain, shortness of breath, nausea, vomiting, fever, chills, ear drainage, abdominal pain, dysuria, hematuria, or any other concerning symptoms. Please follow-up with your primary care provider and ENT Prescriptions: New meclizine 25 mg tablet 25 mg PO QID PRN (Reason: motion sickness) 7 Days Qty: 28 0RF amoxicillin-pot clavulanate 875-125 mg tablet 1 tab PO Q12H 10 Days Qty: 20 0RF No Action hydrochlorothiazide 25 mg tablet 25 mg PO DAILY 30 Days Qty: 30 0RF amlodipine 5 mg tablet 5 mg PO DAILY acetaminophen 500 mg Tablet 1,000 mg PO Q6H PRN (Reason: Pain) lisinopril 20 mg tablet 20 mg PO BID atorvastatin 40 mg Tablet 40 mg PO DAILY Qty: 30 0RF aspirin 81 mg Tablet,Delayed Release (Dr/Ec) 81 mg PO DAILY Qty: 30 0RF gabapentin 100 mg Capsule 100 mg PO BID Qty: 60 0RF Referrals: Johny Jones [Physician] - (Vertigo, tinnnitus) Stand Alone Forms: Work/School Release Interventions: ED Discharge Assessment Last Done: 11/07/22 14:14 Discharge Date/Time: 11/07/22 14:15 Print Language: Malian
[2022-11-07] MEDS: 0.9 % Sodium Chloride 1,000 ML 999 ML IV (09:29)
[2022-11-07] MEDS: Meclizine HCl 25 MG TABLET 50 MG PO (09:29)
[2022-11-07 09:36] LABS: MANUAL DIFF FLAG NO
[2022-11-07 09:39] LABS: Basophils Percent Auto 0.2 % (0-2); Eosinophils Percent Auto 0.2 % (0-4); Hemoglobin 14.7 g/dl (12.0-16.0); Imm Gran Abs Auto 0.01 X10*3/uL (0.00-0.03); Imm Gran Pct Auto 0.2 % (0.0-0.4); Lymphocytes Absolute Auto 0.9 X10*3/uL (1.2-4.9); Lymphocytes Percent Auto 19.4 % (20-40); Mean Corpuscular Hemoglobin 30.4 pg (27.0-33.0); Mean Corpuscular Volume 86.8 fL (80.0-98.0); Monocytes Absolute Auto 0.3 X10*3/uL (0.1-1.2); Monocytes Percent Auto 5.7 % (2-11); Neutrophils Absolute Auto 3.5 x10*3/uL (2.0-8.3); Neutrophils Percent Auto 74.3 % (45-73); Platelet Count 221 X10*3/uL (160-400); Red Blood Count 4.84 X10*6/uL (4.20-5.50); Red Cell Distribution Width 12.1 % (11.0-16.0); White Blood Count 4.7 X10*3/uL (4.8-10.8)
[2022-11-07 09:39] LABS: IDNOW Serial# 08D9AD1C; Strep A Nucleic Acid Negative (Negative)
[2022-11-07 09:48] LABS: INTERNATIONAL NORM RATIO 1.2 (0.9-1.1); Prothrombin Time 13.6 SEC (10.0-13.1)
[2022-11-07 09:50] LABS: Partial Thromboplastin Time 30.1 SEC (26.0-36.4)
[2022-11-07 09:56] LABS: Alanine Aminotransferase 35 U/L (0-31); Albumin Level 4.4 g/dL (3.5-5.0); Alkaline Phosphatase 81 U/L (39-117); Anion Gap 13 (12-20); Aspartate Amino Transferase 25 U/L (5-31); Bilirubin Total 0.8 mg/dL (0.0-1.0); Blood Urea Nitrogen 14 mg/dL (9-16); Calcium 9.1 mg/dL (8.4-10.2); Carbon Dioxide 26 mmol/L (22-29); Chloride 103 mmol/L (96-108); Creatinine Clr Calc Pharmacy 89.7; Estimated Glomerular Filt Rate > 60; Glucose Random 235 mg/dL (60-115); Potassium 3.9 mmol/L (3.3-5.1); Sodium 138 mmol/L (135-145); Total Protein 7.1 g/dL (6.5-8.0)
[2022-11-07 10:04] LABS: Troponin-I High Sensitivity < 2.7 ng/L (<3.5-17.0)
[2022-11-07 12:09] VITALS: BP 135/75; PULSE 61; RESP 17; TEMP 37; O2SAT 95
[2022-11-07 12:48] LABS: Troponin-I High Sensitivity 2.7 ng/L (<3.5-17.0)
== END 2022-11-07 14:15 | disposition home or self-care (01) ==
PROVIDERS: Physician Assistant; Emergency Provider Emergency Medicine Emergency Medical Services; PCP Internal Medicine
DX: H66.93 Otitis media, unspecified, bilateral (principal); R42 Dizziness and giddiness; R51.9 Headache, unspecified; M54.2 Cervicalgia; R05.9 Cough, unspecified; Z20.822 Contact with and (suspected) exposure to COVID-19; Z20.828 Contact with and (suspected) exposure to other viral communicable diseases; Z79.899 Other long term (current) drug therapy
CPT/HCPCS: 36415; 70450; 71045; 80053; 84484; 85025; 85610; 85730; 87502; 87635; 87651; 93005; 96360; 96361; 99284

== ENCOUNTER 2022-11-18 07:17 | Outpatient (REF) | payer OTHER, SELFPAY ==
--- NOTE | ~2022-11-18 | MM_ITS ---
EXAMINATION: MM SCREENING DIGITAL BREAST TOMOSYNTHESIS, BILATERAL CLINICAL INFORMATION: Screening. Asymptomatic. The lifetime risk of breast cancer based on the Tyrer-Cuzick Model is 12%. COMPARISON: Mammography: 11/12/2021, 05/14/2020, 07/29/2018 TECHNIQUE: Digital breast tomosynthesis is performed in both the craniocaudal and mediolateral oblique views along with computer-aided detection (CAD). Synthesized 2D images are generated from the tomosynthesis. FINDINGS: There are scattered areas of fibroglandular density (ACR BI-RADS breast composition Category b). Parenchymal pattern is similar to prior exams. No developing density or architectural abnormality or significant mass. Biopsy clip marker again noted posterior central inner left breast. There are scattered bilateral punctate round calcifications again seen. The axilla and skin contours are unremarkable. There are no significant changes from prior studies. MM/MM tomosynthesis screening BI IMPRESSION: No mammographic evidence of malignancy. ASSESSMENT: BI-RADS 2: Benign RECOMMENDATION: Routine annual mammography screening. This patient's information was entered into a reminder system with a target due date for their next mammogram.
== END 2022-11-18 07:18 | disposition home or self-care (01) ==
LOC: HO.MAMMO 07:17
PROVIDERS: PCP Internal Medicine; Visit Provider Internal Medicine
DX: Z12.31 Encounter for screening mammogram for malignant neoplasm of breast (principal)
CPT/HCPCS: 77063; 77067

== ENCOUNTER 2023-01-14 11:53 | Outpatient (REF) | payer OTHER, SELFPAY ==
[2023-01-14 14:17] LABS: Estimated Average Glucose 177 mg/dL; Hemoglobin A1c % 7.8 %
[2023-01-14 14:30] LABS: Anion Gap 14 (12-20); Blood Urea Nitrogen 14 mg/dL (9-16); Carbon Dioxide 26 mmol/L (22-29); Chloride 101 mmol/L (96-108); Estimated Glomerular Filt Rate > 60; Glucose Random 339 mg/dL (60-115); Potassium 3.8 mmol/L (3.3-5.1); Sodium 137 mmol/L (135-145)
== END 2023-01-14 11:54 | disposition home or self-care (01) ==
LOC: HO.10HDL 11:53
PROVIDERS: Visit Provider Internal Medicine
DX: R73.9 Hyperglycemia, unspecified (principal); I10 Essential (primary) hypertension
CPT/HCPCS: 36415; 80048; 83036

== ENCOUNTER 2023-01-26 11:14 | Outpatient (REF) | payer OTHER, SELFPAY ==
--- NOTE | ~2023-01-26 | US_ITS ---
EXAMINATION: US EXTRACRANIAL CAROTID DUPLEX, BILATERAL CLINICAL INFORMATION: Left neck/left ear murmur. COMPARISON: 01/13/2011 TECHNIQUE: Real-time ultrasound and Doppler techniques (integrating B-mode 2-D vascular images, Doppler spectral analysis and color-flow Doppler imaging) were utilized to interrogate the extracranial carotid arteries, the vertebral arteries and proximal subclavian arteries bilaterally. The degree of stenosis is determined by criteria similar to NASCET. FINDINGS: Right Side: 1. There is no atherosclerotic plaque seen in the bifurcation/proximal ICA region. 2. The common carotid artery PSV proximally is 154 cm/s and distally 77 cm/s. 3. The proximal internal carotid artery velocities are 90 cm/s systolic and 24 cm/s diastolic. 4. The proximal external carotid artery PSV is 148 cm/s. 5. The vertebral artery shows antegrade flow. 6. The subclavian artery waveforms are normal. Left Side: 1. There is no atherosclerotic plaque seen in the bifurcation/proximal ICA region. 2. The common carotid artery PSV proximally is 139 cm/s and distally 77 cm/s. 3. The proximal internal carotid artery velocities are 66 cm/s systolic and 19 cm/s diastolic. 4. The proximal external carotid artery PSV is 118 cm/s. 5. The vertebral artery shows antegrade flow. 6. The subclavian artery waveforms are normal. US/US carotid duplex BI IMPRESSION: 1. RIGHT: Normal right internal carotid artery without atherosclerotic plaque or hemodynamically significant stenosis. 2. LEFT: Normal left internal carotid artery without atherosclerotic plaque or hemodynamically significant stenosis. 3. At the time of the prior 2010 study, some mild plaque was felt to be present which is not appreciated at this time. Velocities were similar and in the 0-49% diameter reduction range.
== END 2023-01-26 11:15 | disposition home or self-care (01) ==
LOC: HO.US 11:14
PROVIDERS: PCP Internal Medicine; Visit Provider Internal Medicine
DX: I65.23 Occlusion and stenosis of bilateral carotid arteries (principal)
CPT/HCPCS: 93880

== ENCOUNTER 2023-03-18 12:18 | Outpatient (REF) | payer OTHER, SELFPAY ==
[2023-03-18 12:41] LABS: MANUAL DIFF FLAG NO
[2023-03-18 13:59] LABS: Basophils Percent Auto 0.6 % (0-2); Eosinophils Absolute Auto 0.1 X10*3/uL (0.0-0.4); Hematocrit 44.9 % (37.0-47.0); Hemoglobin 15.6 g/dl (12.0-16.0); Imm Gran Abs Auto 0.01 X10*3/uL (0.00-0.03); Imm Gran Pct Auto 0.1 % (0.0-0.4); Lymphocytes Absolute Auto 1.7 X10*3/uL (1.2-4.9); Lymphocytes Percent Auto 25.2 % (20-40); Mean Corpuscular HGB Conc 34.7 g/dl (31.0-35.0); Mean Corpuscular Hemoglobin 30.5 pg (27.0-33.0); Mean Corpuscular Volume 87.9 fL (80.0-98.0); Mean Platelet Volume 10.2 fL (9.4-12.3); Monocytes Absolute Auto 0.4 X10*3/uL (0.1-1.2); Monocytes Percent Auto 6.1 % (2-11); Neutrophils Absolute Auto 4.6 x10*3/uL (2.0-8.3); Platelet Count 293 X10*3/uL (160-400); Red Blood Count 5.11 X10*6/uL (4.20-5.50); Red Cell Distribution Width 12.1 % (11.0-16.0); White Blood Count 6.9 X10*3/uL (4.8-10.8)
[2023-03-18 14:06] LABS: Estimated Average Glucose 157 mg/dL; Hemoglobin A1c % 7.1 % (<6.0)
[2023-03-18 14:27] LABS: Alanine Aminotransferase 18 U/L (0-31); Albumin Level 4.6 g/dL (3.5-5.0); Alkaline Phosphatase 76 U/L (39-117); Anion Gap 14 (12-20); Aspartate Amino Transferase 16 U/L (5-31); Bilirubin Total 0.5 mg/dL (0.0-1.0); Blood Urea Nitrogen 18 mg/dL (9-16); Calcium 9.8 mg/dL (8.4-10.2); Carbon Dioxide 25 mmol/L (22-29); Chloride 105 mmol/L (96-108); Estimated Glomerular Filt Rate > 60; Glucose Random 152 mg/dL (60-115); Potassium 3.5 mmol/L (3.3-5.1); Sodium 140 mmol/L (135-145); Total Protein 7.7 g/dL (6.5-8.0)
== END 2023-03-18 12:19 | disposition home or self-care (01) ==
LOC: HO.LAB 12:18
PROVIDERS: PCP Internal Medicine; Visit Provider Internal Medicine
DX: E11.9 Type 2 diabetes mellitus without complications (principal); I10 Essential (primary) hypertension; E78.00 Pure hypercholesterolemia, unspecified
CPT/HCPCS: 36415; 80053; 82550; 83036; 85025

== ENCOUNTER 2023-05-20 09:53 | Outpatient (REF) | payer OTHER, SELFPAY ==
[2023-05-20 10:17] LABS: MANUAL DIFF FLAG NO
[2023-05-20 10:26] LABS: Basophils Percent Auto 0.6 % (0-2); Eosinophils Absolute Auto 0.2 X10*3/uL (0.0-0.4); Eosinophils Percent Auto 2.4 % (0-4); Hematocrit 44.6 % (37.0-47.0); Hemoglobin 15.6 g/dl (12.0-16.0); Imm Gran Abs Auto 0.02 X10*3/uL (0.00-0.03); Imm Gran Pct Auto 0.3 % (0.0-0.4); Lymphocytes Absolute Auto 1.6 X10*3/uL (1.2-4.9); Lymphocytes Percent Auto 24.7 % (20-40); Mean Corpuscular Hemoglobin 31.3 pg (27.0-33.0); Mean Corpuscular Volume 89.4 fL (80.0-98.0); Monocytes Absolute Auto 0.4 X10*3/uL (0.1-1.2); Monocytes Percent Auto 6.5 % (2-11); Neutrophils Absolute Auto 4.1 x10*3/uL (2.0-8.3); Neutrophils Percent Auto 65.5 % (45-73); Platelet Count 292 X10*3/uL (160-400); Red Blood Count 4.99 X10*6/uL (4.20-5.50); Red Cell Distribution Width 12.4 % (11.0-16.0); White Blood Count 6.3 X10*3/uL (4.8-10.8)
[2023-05-20 10:47] LABS: Estimated Average Glucose 157 mg/dL; Hemoglobin A1c % 7.1 % (<6.0)
[2023-05-20 10:52] LABS: Alanine Aminotransferase 18 U/L (0-31); Albumin Level 4.5 g/dL (3.5-5.0); Alkaline Phosphatase 74 U/L (39-117); Anion Gap 13 (12-20); Aspartate Amino Transferase 18 U/L (5-31); Bilirubin Total 0.5 mg/dL (0.0-1.0); Blood Urea Nitrogen 17 mg/dL (9-16); C Reactive Protein 0.13 mg/dL (< or = 0.50); Calcium 10.4 mg/dL (8.4-10.2); Carbon Dioxide 28 mmol/L (22-29); Chloride 104 mmol/L (96-108); Estimated Glomerular Filt Rate > 60; Glucose Random 189 mg/dL (60-115); Potassium 4.2 mmol/L (3.3-5.1); Sodium 141 mmol/L (135-145); Total Protein 7.7 g/dL (6.5-8.0)
[2023-05-20 11:11] LABS: Free T4 (Free Thyroxine) 0.86 ng/dL (0.71-1.85); Thyroid Stimulating Hormone 0.92 uIU/mL (0.32-4.0)
[2023-05-20 11:36] LABS: Vitamin B12 491 pg/mL (200-900)
[2023-05-22 03:14] LABS: Prolactin 3.3 ng/mL
== END 2023-05-20 09:54 | disposition home or self-care (01) ==
LOC: HO.10HDL 09:53
PROVIDERS: Visit Provider Internal Medicine
DX: I10 Essential (primary) hypertension (principal); E11.9 Type 2 diabetes mellitus without complications
CPT/HCPCS: 36415; 80053; 82550; 82607; 83036; 84146; 84439; 84443; 85025; 86140

== ENCOUNTER 2023-11-25 07:20 | Outpatient (REF) | payer OTHER, SELFPAY ==
--- NOTE | ~2023-11-25 | MM_ITS ---
EXAMINATION: MM SCREENING DIGITAL BREAST TOMOSYNTHESIS, BILATERAL CLINICAL INFORMATION: Screening. Asymptomatic. COMPARISON: Mammography: This study is compared with prior exams dating back to 2019. TECHNIQUE: Digital breast tomosynthesis is performed in both the craniocaudal and mediolateral oblique views along with computer-aided detection (CAD). Synthesized 2D images are generated from the tomosynthesis. FINDINGS: There are scattered areas of fibroglandular density (ACR BI-RADS breast composition Category b). There are no significant masses, abnormal calcifications, or other abnormalities. There is a tissue marker present in the left breast from prior benign percutaneous biopsy. There are scattered benign calcifications throughout each breast which are unchanged. MM/MM tomosynthesis screening BI IMPRESSION: No mammographic evidence of malignancy. ASSESSMENT: BI-RADS BI-RADS 2 - Benign Findings RECOMMENDATION: Routine annual mammography screening. 1 year F/U This examination should not preclude the clinical evaluation of a suspicious palpable abnormality. This patient's information was entered into a reminder system with a target due date for their next mammogram.
== END 2023-11-25 07:21 | disposition home or self-care (01) ==
LOC: HO.MAMMO 07:20
PROVIDERS: PCP Internal Medicine; Visit Provider Internal Medicine
DX: Z12.31 Encounter for screening mammogram for malignant neoplasm of breast (principal)
CPT/HCPCS: 77063; 77067

== ENCOUNTER → 2023-11-25 07:30 | Outpatient (BNV) | payer OTHER, SELFPAY | PROVIDERS: PCP Internal Medicine; Visit Provider Radiology Diagnostic Radiology | DX: Z12.31 Encounter for screening mammogram for malignant neoplasm of breast (principal) | CPT/HCPCS: 77063; 77067 ==

== ENCOUNTER 2024-11-02 21:39 | Emergency (ER) | payer OTHER, SELFPAY ==
--- NOTE | ~2024-11-02 | CT_ITS ---
CLINICAL HISTORY: Fall, Left sided pain, ?rib fxs CT chest without contrast Comparison: None Findings: The heart is normal size. The visualized thyroid and mediastinum are unremarkable. Solitary pulmonary nodule in the periphery of the right upper lobe measures 4 mm diameter. The visualized upper abdomen is unremarkable. No acute fractures. IMPRESSION: 1. Incidentally noted 4 mm pulmonary nodule in the right upper lobe. Recommend follow-up per Fleischner society recommendations. 2. Otherwise unremarkable chest CT. Fleischner Society 2017 Guidelines for incidentally detected indeterminate nodules in persons 35 years of age or older. Single Solid Nodules: 5 mm or smaller nodules need no follow-up in low risk, and [address] follow-up is optional in high risk patients. This document has been electronically signed by: Gary Bennett MD, PHD on 11/03/2024 02:42:07
--- NOTE | ~2024-11-02 | CT_ITS ---
CLINICAL HISTORY: fall, lt sided pain, LUQ tendenrss CT abdomen and pelvis with contrast Comparison: None Findings: The lung bases are clear. Unremarkable gallbladder and solid organs. No urolithiasis. No bowel obstruction, pneumoperitoneum, or pneumatosis. Pelvic contents unremarkable. Normal appendix. The bones are intact. Atherosclerotic vascular calcifications are present. IMPRESSION: No acute findings. This document has been electronically signed by: Gary Bennett MD, PHD on 11/03/2024 02:47:45
[2024-11-02 21:45] VITALS: BP 159/86; PULSE 80; O2SAT 96
[2024-11-02 21:48] VITALS: BP 156/83; PULSE 68; RESP 16; TEMP 36.5; O2SAT 98; BMI 31.6
--- NOTE | 2024-11-02 23:38 | PC.NURSE ---
this rn assumed care of pt, pt resting in stretcher, reports left sided rib and leg pain at this time, pending ed provider.
[2024-11-03 00:06] VITALS: BP 115/54; PULSE 58; RESP 20; O2SAT 95
--- NOTE | 2024-11-03 00:31 | ED_ITS ---
HPI - General Adult General Chief complaint: Fall Stated complaint: fall, L side body pain Time Seen by Provider: 11/03/24 00:31 History of Present Illness ED Provider: Roscoe HEMPHILL narrative: The patient is a 59-year-old female who was returning home from work this evening. 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 She had parked across the street from her house. She cross the street and tripped on the curb and landed on the sidewalk, landing on her left side. She landed primarily onto her left arm which was against the left side of her chest. She does not think that she hit her head significantly at all. There was no loss of consciousness. She has a lot of pain in the left side right away. Her pain is most in the left ribs. She also has some pain in the left shoulder and on the left hip. She also has some pain in the left hand in the left wrist. She has no neck pain or pain with moving her neck. Related Data Home Medications ?Medication ?Instructions ?Recorded ?Confirmed acetaminophen 500 mg tablet 1,000 mg PO Q6H PRN Pain 10/11/22 10/11/22 amlodipine 5 mg tablet 5 mg PO DAILY 10/11/22 10/11/22 lisinopril 20 mg tablet 20 mg PO BID 10/11/22 10/11/22 Previous Rx's ?Medication ?Instructions ?Recorded hydrochlorothiazide 25 mg tablet 25 mg PO DAILY 30 days #30 tabs 09/11/21 aspirin 81 mg tablet,delayed 81 mg PO DAILY #30 tabs 10/13/22 release atorvastatin 40 mg tablet 40 mg PO DAILY #30 tabs 10/13/22 gabapentin 100 mg capsule 100 mg PO BID #60 caps 10/13/22 amoxicillin 875 mg-potassium 1 tab PO Q12H 10 days #20 tabs 11/07/22 clavulanate 125 mg tablet meclizine 25 mg tablet 25 mg PO QID PRN motion sickness 7 11/07/22 days #28 tabs Allergies Allergy/AdvReac Type Severity Reaction Status Date / Time No Known Allergies Allergy Mild NONE Verified 11/02/24 21:49 [facility] Past Medical History Medical History (Updated 11/03/24 @ 03:42 by Manuel Malhotra MD) Intracranial atherosclerosis Uncontrolled hypertension Cerebral microvascular disease Thalamic pain syndrome Numbness and tingling of left side of face Social History Social History Alcohol intake: current Alcohol intake frequency: holidays/special occasions only Patient Tobacco Use Status: Never used Tobacco service: No Current occupational status: employed Physical Exam ED Vital Signs: Vital Signs - 24 hr 11/02/24 21:48 11/03/24 00:06 11/03/24 00:57 Temperature 97.7 F Pulse Rate 68 58 Respiratory Rate 16 20 18 Blood Pressure 156/83 H 115/54 L Pulse Oximetry 98 95 Oxygen Delivery Method Room Air Room Air 11/03/24 00:58 11/03/24 03:39 11/03/24 03:50 Temperature 98.5 F 98.4 F Pulse Rate 59 51 51 Respiratory Rate 17 18 18 Blood Pressure 144/82 H 114/56 L 114/56 L Pulse Oximetry 98 96 96 Oxygen Delivery Method Room Air Room Air Room Air BMI result Body Mass Index 31.6 Const Other: The patient is a 59-year-old woman who is awake and alert and looked somewhat uncomfortable but not in acute distress. HENMT Other: No sign of trauma to the head or the face. Eyes General: appearance normal, both eyes and all related structures Neck Other: No posterior midline C-spine tenderness. No pain with range of motion of the neck. C-spine is clinically clear. Chest Other: The patient has significant left-sided chest wall tenderness without crepitus or subcutaneous emphysema. Resp Effort & Inspection: normal respiratory effort Auscultation: clear to auscultation bilaterally Cardio Rate: regular rate Rhythm: regular rhythm Heart sounds: S2 normal heart sound present GI Other: The patient has left upper abdominal tenderness. Back/Spine/Pelvis Other: No midline vertebral tenderness in the back. Skin Other: There is some bruising to the left hand and a very small abrasion on the palm of the left hand at the base of the small finger. Neuro Other: The patient is awake and alert with normal mental status. GCS is 15. Cranial nerves are grossly intact. She seems to have intact strength and sensation in her extremities although she has pain with moving her left arm and her left leg. Extrem Other: patient has some bruising to the palm of the left hand there is no deformity and no clear focal bony tenderness. There is no deformity to the fingers of the left hand and she does not seem to have any focal findings suggestive of a fracture of the fingers. The range of motion of the wrist is normal and there is no soft tissue swelling. She can move the elbow through a good range of motion and I am able to move the left shoulder through a good range of motion. She has pain with manipulation of the left hip. The knee and the remainder of the leg are unremarkable. Medications Administered Discontinued Medications Generic Name Dose Route Start Last Admin Trade Name Freq PRN Reason Stop Dose Admin Sodium Chloride 1,000 mls @ 999 mls/hr 11/03/24 00:45 11/03/24 02:00 Ns IV 11/03/24 01:45 Infused .Q1H1M [place] Infusion Iohexol 85 ml 11/03/24 02:07 11/03/24 02:08 Iohexol 350 Mg/Ml 100 Ml Infus..Btl IV 11/03/24 02:08 85 ml ONCE ONE Administration Ketorolac Tromethamine 10 mg 11/03/24 02:49 11/03/24 03:02 Ketorolac Tromethamine 15 Mg/Ml Vial IVPUSH 11/03/24 02:50 10 mg ONCE ONE Administration Morphine Sulfate 4 mg 11/03/24 00:47 11/03/24 00:57 Morphine Sulfate 4 Mg/Ml Cartridge IVPUSH 11/03/24 00:48 4 mg ONCE ONE Administration Protocol Ondansetron HCl 4 mg 11/03/24 00:47 11/03/24 00:57 Ondansetron Hcl 4 Mg/2 Ml Vial IVPUSH 11/03/24 00:48 4 mg ONCE ONE Administration Medical Decision Making Medical Decision Making [facility] Narrative: The patient presents after a trip and fall injury in which she landed on her left side. She did not hit her head. She has a lot of pain on the left side of her body. The examination of her left arm is not suggestive of any likely fracture. After examining the arm I then had the patient sit up and tried to have her stand but when she changed position she had extreme pain in the region of the left side of her chest. I had concerns about possible rib fractures. She also was tender in the left upper quadrant and this raised the possibility of a possible splenic injury. She also had a lot of pain in the left hip. Ultimately I obtained a noncontrast CT of the chest and a CT with contrast of the abdomen and pelvis. Both of these studies are negative. I think patient has significant soft tissue injuries but no fractures or internal injuries. She was treated with ketorolac and ibuprofen as well as morphine. She will be discharged with instructions to rest for the next several days. Use ibuprofen and acetaminophen. She was offered a prescription for stronger pain medication but declined. Lab Data 11/03/24 01:12 11/03/24 01:12 Labs: Lab Results 11/03/24 Range/Units 01:12 WBC 7.6 (4.8-10.8) X10*3/uL RBC 4.41 (4.20-5.50) X10*6/uL Hgb 13.6 (12.0-16.0) g/dl Hct 39.0 (37.0-47.0) % MCV 88.4 (80.0-98.0) fL MCH 30.8 (27.0-33.0) pg MCHC 34.9 (31.0-35.0) g/dl RDW 12.7 (11.0-16.0) % Plt Count 227 (160-400) X10*3/uL MPV 9.6 (9.4-12.3) fL Immature Gran % (Auto) 0.3 (0.0-0.4) % Neut % (Auto) 63.3 (45-73) % Lymph % (Auto) 27.8 (20-40) % [place] % (Auto) 7.0 (2-11) % Eos % (Auto) 1.3 (0-4) % Baso % (Auto) 0.3 (0-2) % Lymph # (Auto) 2.1 (1.2-4.9) X10*3/uL [place] # (Auto) 0.5 (0.1-1.2) X10*3/uL Eos # (Auto) 0.1 (0.0-0.4) X10*3/uL Baso # (Auto) 0.0 (0.0-0.2) X10*3/uL Abs Immat Gran (auto) 0.02 (0.00-0.03) X10*3/uL Absolute Neuts (auto) 4.8 (2.0-8.3) x10*3/uL Absolute Nucleated RBC 0.000 (0.0-0.012) X10*3/uL Nucleated RBC % (auto) 0.0 (0.0-0.2) /100WBC Sodium 143 (135-145) mmol/L Potassium 3.3 (3.3-5.1) mmol/L Chloride 109 H (96-108) mmol/L Carbon Dioxide 25 (22-29) mmol/L Anion Gap 12 (12-20) BUN 16 (9-16) mg/dL Creatinine 0.68 (0.5-1.4) mg/dL Estim Creat Clear Calc 93.1 Estimated GFR > 60 Random Glucose 109 (60-115) mg/dL Calcium 8.8 D (8.4-10.2) mg/dL Total Bilirubin 0.5 (0.0-1.0) mg/dL Direct Bilirubin 0.2 (0.0-0.5) mg/dL AST 22 (5-31) U/L ALT 17 (0-31) U/L Alkaline Phosphatase 57 (39-117) U/L Total Protein 6.3 L (6.5-8.0) g/dL Albumin 3.9 (3.5-5.0) g/dL Lipase 67 (8-78) U/L Ethyl Alcohol < 10 mg/dL Discharge Plan Discharge Clinical Impression: Contusion of left chest wall, Contusion of left hand Patient Disposition: Home, Self-Care Additional Instructions: Fortunately the CAT scans did not show any rib fractures or other internal injuries. I think you have a lot of bad contusions. I expect you will be very sore for the next several days. Please plan on resting and taking it easy and avoiding any significant stressful activities. People often feel much worse the day after an injury like this than on the day of the injury. Expect to be very sore. You may take ibuprofen 400 mg every 6 hours as needed for pain. You may take 2 extra-strength acetaminophen (Tylenol) up to 3 times a day as needed for pain. Please stay in touch with Dr. Ferris's office to see if they have made any advances in getting you a new primary care doctor. Return to the emergency room if significantly worse. Prescriptions: No Action hydrochlorothiazide 25 mg tablet 25 mg PO DAILY 30 Days Qty: 30 0RF meclizine 25 mg tablet 25 mg PO QID PRN (Reason: motion sickness) 7 Days Qty: 28 0RF amoxicillin-pot clavulanate 875-125 mg tablet 1 tab PO Q12H 10 Days Qty: 20 0RF amlodipine 5 mg tablet 5 mg PO DAILY acetaminophen 500 mg Tablet 1,000 mg PO Q6H PRN (Reason: Pain) lisinopril 20 mg tablet 20 mg PO BID atorvastatin 40 mg Tablet 40 mg PO DAILY Qty: 30 0RF aspirin 81 mg Tablet,Delayed Release (Dr/Ec) 81 mg PO DAILY Qty: 30 0RF gabapentin 100 mg Capsule 100 mg PO BID Qty: 60 0RF Referrals: Richard Ferris MD [Primary Care Provider] - Interventions: ED Discharge Assessment Last Done: 11/03/24 03:50 Discharge Date/Time: 11/03/24 03:50 Print Language: Turkmen
[2024-11-03 00:57] VITALS: RESP 18
[2024-11-03] MEDS: Morphine Sulfate 4 MG/ML CARTRIDGE IVPUSH (00:57)
[2024-11-03] MEDS: ondansetron HCL 4 MG/2 ML VIAL IVPUSH (00:57)
[2024-11-03 00:58] VITALS: BP 144/82; PULSE 59; RESP 17; TEMP 36.9; O2SAT 98
[2024-11-03] MEDS: 0.9 % Sodium Chloride 1,000 ML 999 ML IV (00:58)
--- NOTE | 2024-11-03 01:04 | PC.NURSE ---
20g iv access placed in right ac, pt medicated per mar, vss. pending labs and ct scan.
[2024-11-03 01:16] LABS: MANUAL DIFF FLAG NO
[2024-11-03 01:18] LABS: Basophils Percent Auto 0.3 % (0-2); Eosinophils Absolute Auto 0.1 X10*3/uL (0.0-0.4); Eosinophils Percent Auto 1.3 % (0-4); Hemoglobin 13.6 g/dl (12.0-16.0); Imm Gran Abs Auto 0.02 X10*3/uL (0.00-0.03); Imm Gran Pct Auto 0.3 % (0.0-0.4); Lymphocytes Absolute Auto 2.1 X10*3/uL (1.2-4.9); Lymphocytes Percent Auto 27.8 % (20-40); Mean Corpuscular HGB Conc 34.9 g/dl (31.0-35.0); Mean Corpuscular Hemoglobin 30.8 pg (27.0-33.0); Mean Corpuscular Volume 88.4 fL (80.0-98.0); Mean Platelet Volume 9.6 fL (9.4-12.3); Monocytes Absolute Auto 0.5 X10*3/uL (0.1-1.2); Neutrophils Absolute Auto 4.8 x10*3/uL (2.0-8.3); Neutrophils Percent Auto 63.3 % (45-73); Platelet Count 227 X10*3/uL (160-400); Red Blood Count 4.41 X10*6/uL (4.20-5.50); Red Cell Distribution Width 12.7 % (11.0-16.0); White Blood Count 7.6 X10*3/uL (4.8-10.8)
[2024-11-03 01:42] LABS: Alanine Aminotransferase 17 U/L (0-31); Albumin Level 3.9 g/dL (3.5-5.0); Anion Gap 12 (12-20); Aspartate Amino Transferase 22 U/L (5-31); Bilirubin Direct 0.2 mg/dL (0.0-0.5); Bilirubin Total 0.5 mg/dL (0.0-1.0); Blood Urea Nitrogen 16 mg/dL (9-16); Calcium 8.8 mg/dL (8.4-10.2); Carbon Dioxide 25 mmol/L (22-29); Chloride 109 mmol/L (96-108); Creatinine Clr Calc Pharmacy 93.1; Estimated Glomerular Filt Rate > 60; Glucose Random 109 mg/dL (60-115); Lipase 67 U/L (8-78); Potassium 3.3 mmol/L (3.3-5.1); Sodium 143 mmol/L (135-145); Total Protein 6.3 g/dL (6.5-8.0)
[2024-11-03] MEDS: iohexoL 350 MG/ML 100 ML INFUS..BTL 85 ML IV (02:08)
[2024-11-03 02:46] LABS: Alkaline Phosphatase 57 U/L (39-117)
[2024-11-03] MEDS: Ketorolac Tromethamine 15 MG/ML VIAL 10 MG IVPUSH (03:02)
[2024-11-03 03:12] LABS: Ethanol < 10 mg/dL
[2024-11-03 03:39] VITALS: BP 114/56; PULSE 51; RESP 18; O2SAT 96
[2024-11-03 03:50] VITALS: BP 114/56; PULSE 51; RESP 18; TEMP 36.9; O2SAT 96
== END 2024-11-03 03:50 | disposition home or self-care (01) ==
PROVIDERS: Emergency Provider Emergency Medicine; PCP Internal Medicine
DX: S20.212A Contusion of left front wall of thorax, initial encounter (principal); S60.222A Contusion of left hand, initial encounter; S60.512A Abrasion of left hand, initial encounter; W10.1XXA Fall (on)(from) sidewalk curb, initial encounter; Y93.01 Activity, walking, marching and hiking; Y92.414 Local residential or business street as the place of occurrence of the external cause; Y99.9 Unspecified external cause status
CPT/HCPCS: 36415; 71250; 74177; 80048; 80076; 80307; 83690; 85025; 96361; 96374; 96375; 99285; J1885; J2270; J2405; Q9967

== ENCOUNTER → 2024-11-03 00:44 | Outpatient (BNV) | payer OTHER, SELFPAY | PROVIDERS: Emergency Provider Emergency Medicine; PCP Internal Medicine; Visit Provider General Practice | DX: R10.12 Left upper quadrant pain (principal); R91.1 Solitary pulmonary nodule; W19.XXXA Unspecified fall, initial encounter | CPT/HCPCS: 71250; 74177 ==

== ENCOUNTER 2025-01-05 10:37 | Outpatient (AMB) | payer OTHER, SELFPAY ==
--- NOTE | 2025-01-05 09:29 | MHC.PC.OV ---
Vital Signs 01/05/25 10:42 Height 5 ft 4 in Weight 192 lb BMI 33.0 BP 126/80 Blood Pressure Location Rt brachial Position Sitting Pulse 62 Pulse Source Pulse Oximeter Temp 97.3 F Temp Source Axillary Pulse Oximetry (%) 97 Oxygen Delivery Method Room Air Intake Visit Reasons: Routine Asw Specialist Required: No Accompanied by: Self / Same As Patient Allergies No Known Allergies Allergy (Mild, Verified 01/05/25 09:29) NONE Tobacco use date assessed: 01/05/25 Dental Screening Dental Screen Date: 01/05/25 Did you have a dental visit in the last 12 months?: No Did you have a dental problem in the last 6 months where you did not have access to dental care?: No HPI HPI Comments History of Present Illness Details The patient is a 59 year old female with a past medical history of hypertension, DM, tinnitus presenting to [facility] Patient was hospitalized in 2022 for r/o CVA. 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 Patient reports that she did not see ENT/oral surgery etc. Notes the right palate mass has been there for ~10 years. DM-on jardiance. A1C very overdue last 7.1%. Eye exam utd CV-on norvasc, hctz, lisinopril. Blood pressure is well controlled. denies chest pain, exertional dyspnea Left wrist pain ongoing Mammo-due Colonoscopy-declines colonoscopy. cologuard sent Does not follow obgyn nurse-h/o partial hysterectomy ROS see HPI PHYSICAL EXAM: GENERAL: Alert and oriented x 3. NAD EYES: EOMI. Anicteric. HENT: Moist mucous membranes. Right hard palate mass~2.5cm LUNGS: Clear to auscultation bilaterally. CARDIOVASCULAR: Regular rate and rhythm. No murmur. No JVD. ABDOMEN: Soft, non-tender +bs EXTREMITIES: No edema. Non-tender. SKIN: No rashes or lesions. Warm. NEUROLOGIC: No focal neurological deficits. CN II-XII grossly intact PSYCHIATRIC: Cooperative. Appropriate mood and affect [facility] Medical History Intracranial atherosclerosis Uncontrolled hypertension Cerebral microvascular disease Thalamic pain syndrome Numbness and tingling of left side of face Family History Mother No problems noted. Father No problems noted. Social History Housing: House Alcohol intake: current Alcohol intake frequency: holidays/special occasions only Patient Tobacco Use Status: Never used Tobacco e-Cigarette/Vaping Use: Never Used service: No Current occupational status: employed Cognitive needs: No Hearing needs: No Vision needs: Yes (reading glasses) Questionnaire PHQ-9 Over the last 2 weeks, how often have you been bothered by any of the following problems? 1. Little interest or pleasure in doing things: not at all 2. Feeling down, depressed, or hopeless: not at all 3. Trouble falling or staying asleep, or sleeping too much: not at all 4. Feeling tired or having little energy: not at all 5. Poor appetite or overeating: not at all 6. Feeling bad about yourself - or that you are a failure or have let yourself or your family down: not at all 7. Trouble concentrating on things, such as reading the newspaper or watching television: not at all 8. Moving or speaking so slowly that other people could have noticed. Or the opposite - being so fidgety or restless that you have been moving around a lot more than usual: not at all 9. Thoughts that you would be better off or of hurting yourself in some way: not at all Total score: 0 Depression Screening Interpretation: Negative Depression Screening Done: Yes 46415 - PHQ-9 Billing: Yes Source: Developed by Drs. Manoj Schwab, Ayanna Scanlon, Juan José Murray and colleagues, with an educational morgan from [employer]. Thrive Questionnaire Date Thrive assessed: 01/05/25 I am a: Patient Within the past 12 months, did the food you bought not last and you didn't have the money to get more?: Never true Within the past 12 months, did you worry whether your food would run out before you got money to buy more?: Never true Do you have trouble paying for medicines?: No Do you have trouble getting transportation to medical appointments?: No Do you have trouble paying your heating and electricity bill?: No Do you have trouble taking care of your child, family member or friend?: No Do you have trouble with day-to-day activities such as bathing, preparing meals, shopping, managing finances, etc.?: No Are you currently unemployed and looking for a job?: No Are you interested in more education?: No THRIVE Score: 0 AUDIT C Alcohol Use Questionnaire (AUDIT-C) 1. How often do you have a drink containing alcohol?: Never 3. How often do you have six or more drinks on one occasion?: Never Total Score: 0 RONNY-7 AMB Questionnaire RONNY-7 Date RONNY - 7 assessed: 01/05/25 Feeling nervous, anxious, or on edge: 0 = Not at all Not being able to stop or control worryin = Not at all Worrying too much about different things: 0 = Not at all Trouble relaxin = Not at all Being so restless that it is hard to sit still: 0 = Not at all Becoming easily annoyed or irritable: 0 = Not at all Feeling afraid as if something awful might happen: 0 = Not at all Total RONNY-7 score (0-4 normal; 5-9 mild; 10-14 moderate; 15-21 severe): 0 Source: Developed by Drs. Manoj Schwab, Ayanna Scanlon, Juan José Murray and colleagues, with an educational morgan from [employer]. Physical exam (Primary Care) Vital Signs: Last Vital Signs Temp 97.3 F 01/05/25 10:42 Pulse 62 01/05/25 10:42 BP 126/80 01/05/25 10:42 Pulse Ox 97 01/05/25 10:42 Oxygen Delivery Method Room Air 01/05/25 10:42 BMI result Body Mass Index 33.0 Tobacco/Smoking Status: Tobacco use Status Tobacco use date assessed 01/05/25 01/05/25 09:31 Patient Tobacco Use Status Never used Tobacco 01/05/25 09:31 e-Cigarette/Vaping Use Never Used 01/05/25 09:31 PHQ-9: PHQ-9 Score PHQ-9: Total score 0 01/05/25 11:06 Depression Screening Interpretation: Negative Thrive Assessment: Date of Thrive Assessment Date Thrive assessed 01/05/25 01/05/25 09:31 Coding Level of Care Code New Pt Level 4 (37482) Complex EM visit Add On G2211 Diagnoses Primary hypertension I10 Hypertension type: primary hypertension Type 2 diabetes mellitus with hyperglycemia, without long-term current use of insulin E11.65 Diabetes mellitus type: type 2 Diabetes mellitus nursing home insulin use: without nursing home use Diabetes mellitus complication status: with hyperglycemia Additional Codes PHQ-9 - 70394 - PHQ-9 Billing: Yes ([id number]) Assessment & Plan Assessment & Plan (1) Hypertension: Code(s): I10 - Essential (primary) hypertension Category: Medical Qualifiers: Hypertension type: primary hypertension Qualified Code(s): I10 - Essential (primary) hypertension (2) Diabetes: Code(s): E11.9 - Type 2 diabetes mellitus without complications Category: Medical Qualifiers: Diabetes mellitus type: type 2 Diabetes mellitus continuous churn buttermaker insulin use: without continuous churn buttermaker use Diabetes mellitus complication status: with hyperglycemia Qualified Code(s): E11.65 - Type 2 diabetes mellitus with hyperglycemia Plan 59 year old to establish care Past medical, surgical, social reviewed Labs ordered Mammo ordered xr left wrist Oral mass-referral OMF Orders: Orders XR wrist LT min 3V 01/05/25 M25.532 - Pain in left wrist Comprehensive Met. 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 MM screening mammo BI 01/05/25 Z12.31 - Encounter for screening mammogram for malignant neoplasm of breast Hemoglobin A1c 01/05/25 E11.9 - Type 2 diabetes mellitus without complications, I10 - Essential (primary) hypertension, Z13.0 - Encounter for screening for diseases of the blood and blood-forming organs and certain disorders involving the immune mechanism, 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 LDL Cholesterol Direct 01/05/25 E11.9 - Type 2 diabetes mellitus without complications, I10 - Essential (primary) hypertension, Z13.0 - Encounter for screening for diseases of the blood and blood-forming organs and certain disorders involving the immune mechanism, 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 Complete Blood Count Auto Diff 01/05/25 E11.9 - Type 2 diabetes mellitus without complications, I10 - Essential (primary) hypertension, Z13.0 - Encounter for screening for diseases of the blood and blood-forming organs and certain disorders involving the immune mechanism, 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 Microalbumin, Random (w Creat) 01/05/25 E11.9 - Type 2 diabetes mellitus without complications, I10 - Essential (primary) hypertension, Z13.0 - Encounter for screening for diseases of the blood and blood-forming organs and certain disorders involving the immune mechanism, 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 Referrals Oral Surgery Referal E11.9 - Type 2 diabetes mellitus without complications, I10 - Essential (primary) hypertension, K13.79 - Other lesions of oral mucosa Cologuard Test Z12.11 - Encounter for screening for malignant neoplasm of colon, Z12.12 - Encounter for screening for malignant neoplasm of rectum Medications: New lisinopril 20 mg PO BID 180 tabs 3RF Discontinued amoxicillin-pot clavulanate 875-125 mg Discontinued Reason: Patient no longer taking 1 tab PO Q12H 10 days 20 tabs 0RF meclizine Discontinued Reason: Patient no longer taking 25 mg PO QID 7 days PRN 28 tabs 0RF motion sickness
[2025-01-05 10:42] VITALS: BP 126/80; PULSE 62; TEMP 36.3; O2SAT 97; BMI 33.0
== END 2025-01-05 11:21 | disposition home or self-care (01) ==
LOC: HO.HMCHD 10:38
PROVIDERS: PCP Internal Medicine; Visit Provider Internal Medicine
DX: I10 Essential (primary) hypertension (principal); E11.65 Type 2 diabetes mellitus with hyperglycemia

== ENCOUNTER → 2025-01-05 10:37 | Outpatient (BNVA) | payer OTHER, SELFPAY | PROVIDERS: PCP Internal Medicine; Visit Provider Internal Medicine | DX: Z76.89 Persons encountering health services in other specified circumstances (principal); I10 Essential (primary) hypertension; E11.65 Type 2 diabetes mellitus with hyperglycemia; M25.532 Pain in left wrist; Z79.84 Long term (current) use of oral hypoglycemic drugs; Z79.899 Other long term (current) drug therapy; Z13.31 Encounter for screening for depression | CPT/HCPCS: 96127; 99202 ==

== ENCOUNTER 2025-01-05 11:24 | Outpatient (REF) | payer OTHER, SELFPAY ==
[2025-01-05 13:07] LABS: MANUAL DIFF FLAG NO
[2025-01-05 13:11] LABS: Basophils Absolute Auto 0.1 X10*3/uL (0.0-0.2); Basophils Percent Auto 0.9 % (0-2); Eosinophils Absolute Auto 0.1 X10*3/uL (0.0-0.4); Hematocrit 44.6 % (37.0-47.0); Hemoglobin 15.3 g/dl (12.0-16.0); Lymphocytes Absolute Auto 1.4 X10*3/uL (1.2-4.9); Lymphocytes Percent Auto 25.5 % (20-40); Mean Corpuscular HGB Conc 34.3 g/dl (31.0-35.0); Mean Corpuscular Hemoglobin 30.6 pg (27.0-33.0); Mean Corpuscular Volume 89.2 fL (80.0-98.0); Mean Platelet Volume 9.9 fL (9.4-12.3); Monocytes Absolute Auto 0.4 X10*3/uL (0.1-1.2); Monocytes Percent Auto 6.5 % (2-11); Neutrophils Absolute Auto 3.5 x10*3/uL (2.0-8.3); Neutrophils Percent Auto 65.1 % (45-73); Platelet Count 260 X10*3/uL (160-400); Red Cell Distribution Width 12.3 % (11.0-16.0); White Blood Count 5.4 X10*3/uL (4.8-10.8)
[2025-01-05 13:17] LABS: Estimated Average Glucose 146 mg/dL; Hemoglobin A1c % 6.7 % (<6.0)
[2025-01-05 13:34] LABS: Alanine Aminotransferase 25 U/L (0-31); Albumin Level 4.7 g/dL (3.5-5.0); Alkaline Phosphatase 70 U/L (39-117); Anion Gap 11 (12-20); Aspartate Amino Transferase 26 U/L (5-31); Bilirubin Total 0.6 mg/dL (0.0-1.0); Blood Urea Nitrogen 18 mg/dL (9-16); Calcium 9.7 mg/dL (8.4-10.2); Carbon Dioxide 29 mmol/L (22-29); Chloride 104 mmol/L (96-108); Estimated Glomerular Filt Rate > 60; Glucose Random 148 mg/dL (60-115); Sodium 140 mmol/L (135-145); Total Protein 7.3 g/dL (6.5-8.0)
[2025-01-05 14:20] LABS: Microalbum/Creatinine Ratio Ur 21.4 ug/mg cr (<30)
[2025-01-06 21:38] LABS: LDL Cholesterol Direct 84 mg/dL (<100)
== END 2025-01-05 11:25 | disposition home or self-care (01) ==
LOC: HO.10HDL 11:24
PROVIDERS: Visit Provider Internal Medicine
DX: I10 Essential (primary) hypertension (principal); E11.9 Type 2 diabetes mellitus without complications; Z90.711 Acquired absence of uterus with remaining cervical stump; Z13.0 Encounter for screening for diseases of the blood and blood-forming organs and certain disorders involving the immune mechanism
CPT/HCPCS: 36415; 80053; 82043; 82570; 83036; 83721; 85025

== ENCOUNTER 2025-01-23 13:10 | Outpatient (REF) | payer OTHER, SELFPAY ==
--- OUTSIDE RECORDS SUMMARY | 2025-01-23 13:38 | XMS_ITS | Clinical Summary ---
Author Organization [facility] Address [address] [place] [address] Care Team Providers Care Mitten Stitcher Name Role Phone Unavailable Primary Care Provider Unavailabl e Encounters Date Type Department Care Team Description 01/11/2025 Transcribe Orders [facility] PRIMARY CARE SCAN Amanda Castanon MD Other lesions of oral mucosa (Primary Dx) from Last 3 Months Social History Tobacco Use Types Packs/Day Years Used Date Smoking Tobacco: Never Assessed Comments Unknown Sex and Gender Information Value Date Recorded Sex Assigned at Not on file Legal Sex Female 6:37 PM EST Gender Identity Not on file Sexual Orientation Not on file Plan of Treatment Health Maintenance Due Date Last Done Comments Hepatitis C Virus Screening 1965 HIV Screening 1978 DTaP/Tdap/Td Vaccines (1 - Tdap) 1984 Hepatitis B Vaccines (1 of 3 - 19+ 3-dose series) 01/1984 Pneumococcal Vaccines 50+ (1 of 1 - PCV) 2015 Zoster (Shingles) Vaccine (1 of 2) 2015 COVID-19 Vaccine ( - 2023- season) 2024
== END 2025-01-23 13:11 | disposition home or self-care (01) ==
LOC: HO.MAMMO 13:10
PROVIDERS: PCP Internal Medicine; Visit Provider Internal Medicine
DX: Z12.31 Encounter for screening mammogram for malignant neoplasm of breast (principal)
CPT/HCPCS: 77063; 77067

== ENCOUNTER → 2025-01-23 13:30 | Outpatient (BNV) | payer OTHER, SELFPAY | PROVIDERS: PCP Internal Medicine; Visit Provider Internal Medicine | DX: Z12.31 Encounter for screening mammogram for malignant neoplasm of breast (principal) | CPT/HCPCS: 77063; 77067 ==

== ENCOUNTER 2025-05-05 10:09 | Outpatient (AMB) | payer OTHER, SELFPAY ==
--- NOTE | 2025-05-05 10:11 | A.OFFPC_ITS ---
Vital Signs 05/05/25 10:19 Height 5 ft 2.6 in Weight 194 lb BMI 34.8 BP 136/72 Blood Pressure Location Lt brachial Position Sitting Respiration 18 Pulse 69 Pulse Source Pulse Oximeter Temp 98.5 F Temp Source Temporal Artery Scan Pulse Oximetry (%) 97 Oxygen Delivery Method Room Air Intake Visit Reasons: 4 Month F/U General Laborer Required: No Accompanied by: Self / Same As Patient Allergies No Known Allergies Allergy (Mild, Verified 05/05/25 10:11) NONE Medication List - Last Reconciled 05/05/25 by Aaron Sandoval MD amlodipine 5 mg PO DAILY aspirin 81 mg PO DAILY atorvastatin 40 mg PO DAILY empagliflozin (Jardiance) 10 mg PO DAILY hydrochlorothiazide 25 mg PO DAILY 30 days lisinopril 20 mg PO BID Tobacco use date assessed: 01/05/25 Dental Screening Dental Screen Date: 01/05/25 HPI HPI Comments History of Present Illness Details The patient is a 60-year-old female presenting for a wellness visit and management of chronic conditions including Essential Hypertension, Type 2 Diabetes Mellitus, and Hyperlipidemia. 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 She has a history of blood pressure management with medications and notes her pressures to be good recently, reported as 136 mmHg during a recent visit. Her diabetes is largely controlled, with her last Hemoglobin A1c being 6.7%, a significant improvement from a previous level near 9%. She mentions past intolerances to Metformin, which caused gastrointestinal distress, but she has been managing her blood glucose levels with Jardiance. In terms of her hyperlipidemia, she has not had a recent cholesterol panel and acknowledges needing to check it today. Dietary habits have improved with a focus on avoiding garbage food and employing meal preparation strategies. She occasionally indulges, especially in social situations during summer. The patient denies chest pain, shortness of breath, headaches, or vision changes. She notes slight swelling in her legs in the evening due to prolonged standing at work. Other systems reviewed are generally unremarkable. Medical History: - Essential Hypertension - Type 2 Diabetes Mellitus - Hyperlipidemia Surgical History: - Partial hysterectomy Medications: - Amlodipine 5 mg for hypertension - Lisinopril 20 mg for hypertension - Hydrochlorothiazide 25 mg for hyperten gopi - Jardiance 10 mg for diabetes - Atorvastatin 40 mg for hyperlipidemia - Aspirin for preventive health Diagnostic Results: - Labs: Last Hemoglobin A1c was 6.7% (ac ceptable range for age, but desirable to be lower). Social History: - Employment: Works in a restaurant; on her feet most of the day. - Activity Level: High due to work, expe riences slight leg swelling by day?s end. - Nutrition: Engaged in meal prep and tr ies to eat healthily with occasional indulgences. [facility] Medical History (Updated 05/05/25 @ 11:02 by Aaron Sandoval MD) Hyperlipidemia Intracranial atherosclerosis Uncontrolled hypertension Cerebral microvascular disease Thalamic pain syndrome Numbness and tingling of left side of face Family History Mother No problems noted. Father No problems noted. Social History Housing: House Alcohol intake: current Alcohol intake frequency: holidays/special occasions only Patient Tobacco Use Status: Never used Tobacco e-Cigarette/Vaping Use: Never Used service: No Current occupational status: employed Current occupation: [employer] Cognitive needs: No Hearing needs: No Vision needs: Yes (reading glasses) Questionnaire Thrive Questionnaire Date Thrive assessed: 01/05/25 RONNY-7 AMB Questionnaire RONNY-7 Date RONNY - 7 assessed: 01/05/25 Source: Developed by Drs. Manoj Schwab, Ayanna Scanlon, Juan José Murray and colleagues, with an educational morgan from [employer]. Review of Systems Const Details: - General: Reports feeling well, slight tiredness. - Cardiovascular: Denies chest pain, reports good blood pressure control. - Respiratory: Denies shortness of breath. - Neurological: Denies headaches. - Ophthalmological: Denies vision changes. - Gastrointestinal: Reports past intolerance to Metformin due to gastrointestinal issues. All systems reviewed & are unremarkable except as reviewed in HPI and above Physical exam (Primary Care) Vital Signs: Last Vital Signs Temp 98.5 F 05/05/25 10:19 Pulse 69 05/05/25 10:19 Resp 18 05/05/25 10:19 BP 136/72 05/05/25 10:19 Pulse Ox 97 05/05/25 10:19 Oxygen Delivery Method Room Air 10/17/25 10:19 BMI result Body Mass Index 34.8 Tobacco/Smoking Status: Tobacco use Status Tobacco use date assessed 01/05/25 05/05/25 10:12 Patient Tobacco Use Status Never used Tobacco 05/05/25 10:12 e-Cigarette/Vaping Use Never Used 05/05/25 10:12 Thrive Assessment: Date of Thrive Assessment Date Thrive assessed 01/05/25 05/05/25 10:12 Const Other: General: +Alert and oriented, Well nourished, No acute distress. Eye: Pupils are equal, round and reactive to light, Intact accommodation, Extraocular movements are intact, Normal conjunctiva, Vision unchanged. HENT: Normocephalic, Atraumatic, Tympanic membranes are clear, Normal hearing, Oral mucosa is moist, No pharyngeal erythema, Ear canals patent. Respiratory: Lungs CTA bilaterally, No wheeze, Respirations are non-labored. Cardiovascular: Regular rate, Regular rhythm, S1 auscultated, S2 auscultated, No murmur, Good pulses equal in all extremities, Normal peripheral perfusion, No edema. Gastrointestinal: Soft, Non-tender, Non-distended, Normal bowel sounds, No organomegaly. Musculoskeletal: Normal range of motion, Normal strength, No tenderness, No swelling, No deformity, Normal gait. Integumentary: Warm, Dry, [place], Intact. Neurologic: Alert, Oriented, Normal sensory, Normal motor function, No focal defects, Cranial Nerves II-XII are grossly intact, Normal deep tendon reflexes. Psychiatric: Cooperative, Appropriate mood & affect, Normal judgment. Coding Level of Care Code Est Pt Level 4 (39819) Complex EM visit Add On G2211 Diagnoses Primary hypertension I10 Hypertension type: primary hypertension Type 2 diabetes mellitus with hyperglycemia, without long-term current use of insulin E11.65 Diabetes mellitus complication status: with hyperglycemia Diabetes mellitus intermodal owner operator truck driver insulin use: without intermodal owner operator truck driver use Diabetes mellitus type: type 2 Oral mass K13.79 Other hyperlipidemia E78.49 Hyperlipidemia type: other hyperlipidemia Assessment & Plan Assessment & Plan (1) Hypertension: Comment: - Continue current regimen of Amlodipine, Lisinopril, and Hydrochlorothiazide. - Encourage dietary sodium reduction to aid blood pressure management. - Monitor blood pressure weekly and report readings through the patient portal. Code(s): I10 - Essential (primary) hypertension Category: Medical Qualifiers: Hypertension type: primary hypertension Qualified Code(s): I10 - Essential (primary) hypertension (2) Diabetes: Comment: - Reorder Hemoglobin A1c to monitor diabetes control. - Consider introduction of extended-release Metformin pending patient tolerance as Jardiance alone might not achieve optimal glycemic control. - Discussed benefits and limited risk of hypoglycemia with Jardiance. - Follow up with results through the patient portal. Code(s): E11.9 - Type 2 diabetes mellitus without complications Category: Medical Qualifiers: Diabetes mellitus complication status: with hyperglycemia Diabetes mellitus intermodal owner operator truck driver insulin use: without intermodal owner operator truck driver use Diabetes mellitus type: type 2 Qualified Code(s): E11.65 - Type 2 diabetes mellitus with hyperglycemia (3) Oral mass: Comment: - Follow up with ENT Code(s): K13.79 - Other lesions of oral mucosa Category: Medical (4) Hyperlipidemia: Comment: - Conduct lipid panel today as cholesterol was last checked several years ago. - Continue with Atorvastatin 40 mg while waiting for test results. Code(s): E78.5 - Hyperlipidemia, unspecified Category: Medical Qualifiers: Hyperlipidemia type: other hyperlipidemia Qualified Code(s): E78.49 - Other hyperlipidemia Plan: Health Maintenance: - Blood pressure monitoring advised weekly. - Recommend colonoscopy for colorectal cancer screening since the patient has not had one. - Continuous monitoring of diabetes and lipid levels through scheduled tests. - Maintain regular mammograms and address due tests next spring. - Regular physical examination every six months to monitor chronic conditions. Patient was informed and verbally consented to the use of an ambient scribe for clinic note documentation during this visit. Plan During our appointment, we reviewed the current management of her chronic conditions including essential hypertension, type 2 diabetes, and hyperlipidemia. The importance of achieving optimal control over these conditions to prevent further complications such as cardiac or renal issues was emphasized. Discussed trialing an extended-release form of Metformin to mitigate prior gastrointestinal side effects, given its proven effect on managing diabetes, particularly since the patient's kidneys are reported functioning well. We also discussed the future plan to include colonoscopic screenings to complement her annual checks, providing reassurance on thorough health maintenance. She agreed to follow up on labs and continue the prescribed treatment plan, understanding the implications of dietary habits and lifestyle choices on her health management. Orders: Orders Hemoglobin A1c Today E11.65 - Type 2 diabetes mellitus with hyperglycemia, E78.49 - Other hyperlipidemia Lipid Panel Today E11.65 - Type 2 diabetes mellitus with hyperglycemia, E78.49 - Other hyperlipidemia Referrals Open Access Screening Colonoscopy Referral Z12.11 - Encounter for screening for malignant neoplasm of colon, Z12.12 - Encounter for screening for malignant neoplasm of rectum Patient Instructions: - Continue taking your current medications as prescribed. - Monitor your blood pressure weekly and record your readings. - Maintain a low-salt diet to support blood pressure control. - Get a blood test today for A1c to check your diabetes control. - Schedule and prepare for a colonoscopy based on our discussion. - Keep up with healthy meal prep habits, and it's okay to indulge occasionally. - Be cautious about leg swelling after work and consider compression stockings if needed. - Expect to receive updates on your results through the patient portal. - Follow up with any changes or complications experienced and ensure safe practices if trying newly suggested medications.
[2025-05-05 10:19] VITALS: BP 136/72; PULSE 69; RESP 18; TEMP 36.9; O2SAT 97; BMI 34.8
--- OUTSIDE RECORDS SUMMARY | 2025-05-05 11:57 | XMS_ITS | Clinical Summary ---
Author Organization [facility] Address [address] [place] [address] Care Team Providers Care Drafter Geological Name Role Phone Unavailable Primary Care Provider Unavailabl e Social History Tobacco Use Types Packs/Day Years [...] 1978 DTaP/Tdap/Td Vaccines (1 - Tdap) 1984 Pneumococcal Vaccines 50+ (1 of 1 - PCV) 2015 Zoster (Shingles) Vaccine (1 of 2) 2015 COVID-19 Vaccine ( - 2023-2 5 season) 2025 RSV Vaccine 50 years and old er and Patients (1 - 1-dose 75+ series) 2040 Hepatitis B Vaccines Aged Out No long er eligible based on patient's age to complete this topic
--- OUTSIDE RECORDS SUMMARY | 2025-05-05 11:57 | XMS_ITS | Clinical Summary ---
Author Organization [facility] Address [address] [place] [id number] Phone Care Team Providers Care Card Lacer Jacquard Name Role Phone Richard Ferris MD Primary Care Provider Allergies No known active allergies Medications hydroCHLOROthiaz lucrecia (HYDRODIURIL) 25 MG tablet Take 25 mg by mouth daily. 09/12/2021 Active lisinopril (PRINIVIL,ZESTRI L) 20 MG tablet Take 20 mg by mouth 2 (two) times a day. 09/19/2021 Active Social History Tobacco Use Types Packs/Day Years Used Date Smoking Tobacco: Never Alcohol Use Standard Drinks/Week Comments Yes 0 (1 standard drink = 0.6 oz pur e alcohol) Education Answer Date Recorded Are you interested in more education? Not on donavan e 11/14/2022 Are you concerned about learning? Not on file 11/14/2022 No 11/14/2022 No 11/14/2022 Digital Access Answer Date Recorded No 12/15/2022 No 12/15/2022 No 12/15/2022 Reliable internet access at home? Not on file 12/15/2022 Device with a working camera? Not on file Comments Unknown Sex and Gender Information Value Date Recorded Sex Assigned at Female 09/29/2021 11:44 AM EDT Legal Sex Female 9:41 PM EDT Gender Identity Not on file Sexual Orientation Not on file Last Filed Vital Signs Vital Sign Reading Time Taken Comments Blood Pressure 154/80 09/29/2021 12:50 PM EDT Pulse 66 09/29/2021 11:42 AM EDT Temperature 36.5 C (97.7 F) 09/29/2021 11:42 AM EDT Respiratory Rate 16 09/29/2021 12:50 PM EDT Oxygen Saturation 96% 09/29/2021 11:42 AM EDT Inhaled Oxygen Concentration - - Weight 89.4 kg (197 lb) 09/29/2021 11:42 AM EDT Height 162.6 cm (5' 4 ) 09/29/2021 11:42 AM EDT Body Mass Index 33.81 09/29/2021 11:42 AM EDT Plan of Treatment Health Maintenance Due Date Last Done Comments Adult Td,Tdap Booster 1965 CREATININE LEVEL 1965 LIPID PANEL 1965 POTASSIUM LEVEL 1965 DEPRESSION SCREENING 1977 HEPATITIS C SCREENING 1983 HIV ONE-TIME SCREENING (18-6 5 YEARS) 1983 PAP SMEAR 1986 SMOKING STATUS SCREENING (On ce After 26 Yrs) 1991 MAMMOGRAM 2005 COLOGUARD 2010 COLONOSCOPY 2010 COLORECTAL CANCER SCREENING 2010 FIT TEST 2010 FOBT 2010 SIGMOIDOSCOPY 2010 VIRTUAL COLONOSCOPY 2010 PNEUMOCOCCAL VACCINES (50+ years) (1 of 1 - PCV) 2015 ZOSTER VACCINES (1 of 2) 2015 INFLUENZA VACCINE (#1) 2025 COVID-19 VACCINE (4 - 2024-2 6 season) 2025 08/12/2021, 12/05/2020, 11/07/2020 RSV VACCINE (1 - 1-dose 75+ series) 2040 HEPATITIS A VACCINES Aged Out No long er eligible based on patient's age to complete this topic HIB VACCINES Aged Out No longer eligi ble based on patient's age to complete this topic MENINGOCOCCAL VACCINES (ACWY) Aged Out No longer eligible based on patient's age to complete this topic MENINGOCOCCAL VACCINES (B) Aged Out N o longer eligible based on patient's age to complete this topic Medical Devices Not on file Insurance [facility] [place] [address] [place] [address] [facility] [place] [address] [place] [address] [facility] [place] [id number] [address] [place] [address] [address] [address] [place] [address] [facility] [employer] [facility] Care Teams Card Lacer Jacquard Relationship Specialty Start Date End Date Richard Ferris MD [address] [place] [address] [place] [id number] PCP - General Internal Medicine 09/29/21 Additional Source Comments The information contained in this document represents components of the legal health record. It is not the complete legal health record.[facility]
--- OUTSIDE RECORDS SUMMARY | 2025-05-05 11:57 | XMS_ITS ---
Author Name [facility] Organization Unknown Problems Problem Status Onset Date Problem Type Date of Resoluti on Source Other lesions of oral mucosa active EncounterDiagnosisAct CCT
== END 2025-05-05 11:03 | disposition home or self-care (01) ==
PROVIDERS: PCP Student in an Organized Health Care Education/Training Program; Visit Provider Student in an Organized Health Care Education/Training Program
DX: I10 Essential (primary) hypertension (principal); E11.65 Type 2 diabetes mellitus with hyperglycemia; K13.79 Other lesions of oral mucosa; E78.49 Other hyperlipidemia

== ENCOUNTER 2025-05-05 10:54 | Outpatient (REF) | payer OTHER, SELFPAY ==
[2025-05-05 14:18] LABS: Cholesterol 163 mg/dL (<200); HDL Cholesterol 53 mg/dL (>40); Triglycerides 175 mg/dL (<150)
[2025-05-05 16:06] LABS: Hemoglobin A1C 213.6052 umol/L; Total Hemoglobin (HGBA1C) 4171.4341 umol/L
== END 2025-05-05 10:55 | disposition home or self-care (01) ==
LOC: HO.10HDL 10:54
PROVIDERS: Visit Provider Student in an Organized Health Care Education/Training Program
DX: I10 Essential (primary) hypertension (principal); E11.65 Type 2 diabetes mellitus with hyperglycemia; K13.79 Other lesions of oral mucosa; E78.49 Other hyperlipidemia
CPT/HCPCS: 36415; 80061; 83036; 99212